=== PATIENT | female | born 1970 | race Caucasian/White ===

== ENCOUNTER 2023-02-19 10:10 | Day surgery (SDC) | payer BC, SELFPAY ==
--- NOTE | 2023-02-19 10:22 | SUR.PREOP ---
02/16/23 Instructed pt on procedure, date, time, and prep.
--- NOTE | 2023-02-19 10:33 | US_ITS ---
[address] [address] Patient Name: RODRIGUE URBINA MRN: [id number] date: 1970 Sex: F Assigned Patient Location: US Current Patient Location: US Accession/Order Number: [id number] Exam Date: 02/19/2023 11:20 Report Date: 02/19/2023 13:36 At the request of: LUIS RODRIGUEZ Procedure: US biopsy thyroid EXAMINATION: US biopsy thyroid HISTORY: Thyroid Nodule COMPARISON: Ultrasound soft tissue head with neck 02/02/2023 TECHNIQUE: After obtaining informed consent, ultrasound-guided fine needle aspiration was performed in the usual sterile manner. FINDINGS: IMAGING: Ultrasound. BIOPSY NEEDLE: 25-gauge; 3 separate passes LOCATION: Right lobe thick-walled heterogeneous, complex cystic 1.9 x 1.3 x 1.3 cm lesion. SPECIMEN TYPE: Cellular tissue. LOCAL ANESTHETIC: Buffered Xylocaine. COMPLICATIONS: None. LABORATORY: Prepared slide smears and washings for cell block evaluation. OTHER: Negative. PATHOLOGY: Pending. An addendum will be added when results are available. US/US biopsy thyroid IMPRESSION: 1. Uneventful ultrasound guided fine needle aspiration (FNA). 2. Pathology results are pending. Electronically authenticated by: MORELIA SHAW Date: 02/19/2023 13:36
[2023-02-19 10:40] VITALS: BP 150/85; PULSE 73; O2SAT 98
[2023-02-19] MEDS: LIDOCAINE HCL 10 ML, SODIUM BICARBONATE 1 MEQ INJ (11:30)
--- NOTE | 2023-02-19 14:35 | SUR.PREOP ---
02/16/23 Pt instructed on procedure, date, time, and prep.
== END 2023-02-19 11:50 | disposition home or self-care (01) ==
LOC: US 10:16
PROVIDERS: Radiology Diagnostic Radiology; Visit Provider Otolaryngology
DX: E04.1 Nontoxic single thyroid nodule (principal)
CPT/HCPCS: 10005; 88173

== ENCOUNTER 2025-02-12 10:49 | Outpatient (OUT) | payer BC, SELFPAY ==
--- OUTSIDE RECORDS SUMMARY | 2025-02-12 10:52 | XMS_ITS | Clinical Summary ---
Author Organization [facility] Address [address], [address] [place] [address] Care Team Providers Care Market Relationship Manager Name Role Phone Avakesha Viv Trejo APRN - DIET AID Primary Care Provider [phone] Allergies No known active allergies Medications MedicationSigDispense QuantityRefillsLast FilledStart DateEnd DateStatus pantoprazole (PROTONIX) 20 MG tablet Take 1 tablet by mouth dailyActive Multiple Vitamins-Minerals (MULTI FOR HER 50+ PO) as directedActive Cromona-3 Fatty Acids (FISH OIL) 1000 MG CAPS 1 capsuleActive Cholecalciferol (VITAMIN D3) 30 MCG/15ML LIQD Take 125 mg by mouthActive METOPROLOL SUCCINATE PO 4Active ferrous sulfate (IRON 325) 325 (65 Fe) MG tablet Take 1 tablet by mouth daily (with breakfast)Active sertraline (ZOLOFT) 50 MG tablet Indications:Depression, unspecified depression typeTake 1 tablet by mouth daily 90 tablet 5Active Active Problems ProblemNoted DateDiagnosed DateUlcer of esophagus with cqxllcho88/20/2022Hiatal wzfkxo3812/09/2021Family history of colon vonkxc5612/09/2021 Resolved Problems ProblemNoted DateDiagnosed DateResolved DateColon cancer /31/2020 11/19/2019 Encounters DateTypeDepartmentCare RbvpOnsvvdrpjyt86/07/2025 5:42 PM EDT - 12/28/2024 11:59 PM EDTHospital Encounter [facility] Ul[facility]ound [address] [place] [address] Thyroid nodule Discharge Disposition: Home or Self Care12/21/2024Transcribe Orders [facility] Pre Access [address] [place] [address] Saritha Mcrae Jr., MD Thyroid nodule (Primary Dx)from Last 3 Months Immunizations ImmunizationAdministration DatesNext DueTDaP, ADACEL (age 10y-64y), BOOSTRIX (age 10y+), IM, 0.5mL1988 Family History Medical HistoryRelationNameCommentsDiabetesBrotherDiabetesFatherOtherFather macular degenerationCancerMaternal Grandfatherthroat cancerCancerMaternal GrandmothercolonOtherMotheriron deficencyOtherOtherNo family h/o ovarian or breast cancer .No family h/o DVT.RelationNameStatusCommentsBrotherAliveFather AliveMaternal GrandfatherDeceasedMaternal GrandmotherDeceasedMotherAliveOther OtherPaternal GrandfatherDeceasedPaternal GrandmotherDeceased Social History Tobacco UseTypesPacks/DayYears UsedDateSmoking Tobacco: NeverSmokeless Tobacco: Never Tobacco Cessation:Counseling Given: Not Answered Alcohol UseStandard Drinks/WeekCommentsYes0 (1 standard drink = 0.6 oz pure alcohol)[facility] UtilitiesAnswerDate RecordedIn the past 12 months has the [employer], gas, oil, or water [employer] threatened to shut off services in your home?No05/18/2024Overall Financial Resource Strain (CARDIA)AnswerDate Recorded How hard is it for you to pay for the very basics like food, housing, medical care, and heating?Not hard at all05/12/2023HQ-2AnswerDate RecordedPHQ-9 Total Hxvrr746Hunger Vital SignAnswerDate RecordedWithin the past 12 months, you worried that your food would run out before you got the money to buymore. Never true05/18/2024Within the past 12 months, the food you bought just didn't last and you didn't have money to get more.Never true05/18/2024PRAPARE - TransportationAnswerDate RecordedIn the past 12 months, has lack of transportation kept you from medical appointments or from getting medications?No 05/18/2024In the past 12 months, has lack of transportation kept you from meetings, work, or from getting things needed for daily living?No05/18/2024 Housing Stability Vital SignAnswerDate RecordedUnable to Pay for Housing in the Last YearNot on file05/12/2023Number of Places Lived in the Last YearNot on file 05/12/2023In the last 12 months, was there a time when you did not have a steady place to sleep or slept in [place] (including now)?No05/12/2023Housing Stability Vital SignAnswerDate RecordedIn the last 12 months, was there a time when you were not able to pay the mortgage or rent on time?No05/18/2024In the past 12 months, how many times have you moved where you were living? At any time in the past 12 months, were you homeless or living in a chcf (including now)?No05/18/2024Food InsecurityAnswerDate RecordedWithin the past 12 months, you worried that your food would run out before you got the money to buy more.Within the past 12 months, the food you bought just didn't last and you didn't have money to get more.CommentsNoSex and Gender InformationValueDate RecordedSex Assigned at AodrtTjgaor86/23/2025 10:41 AM ESTLegal QdyGcycxz88/10/2013 1:18 PM ESTGender IdentityNot on fileSexual OrientationNot on file Last Filed Vital Signs Vital SignReadingTime TakenCommentsBlood Mtekbbkx338/8205/18/2024 3:16 PM EST Lfdpe2990/20/2022 10:15 AM YNTAqbdegyhxge88.3 ??C (97.4 ??F)12/09/2021 9:52 AM EDTRespiratory Khmn121512/09/2021 10:15 AM EDTOxygen Mkzyfkvkvg41%12/09/2021 10:15 AM EDTInhaled Oxygen Concentration--Baugys086.9 kg (229 lb)05/18/2024 3:16 PM DILUuzbkr604.7 cm (5' 8 )05/18/2024 3:16 PM ESTBody Mass Index34.8205/18/2024 3:16 PM EST Plan of Treatment DateTypeDepartmentCare Team (Latest Contact Info)Nuqxiowdvux81/04/2026 3:15 PM ESTOffice Visit [facility] Part of [address] [place], [place] [id number] Sis Jacome, SUPERVISOR AIRPLANE FLIGHT ATTENDANT - CN[address] [place] [address] Return in about 1 year (around 05/18/2025) for yearly.Health MaintenanceDue Date Last DoneCommentsHepatitis C ogdvxw5406/08/1987Hepatitis B vaccine (1 of 3 - 19+ 3-dose series)1988HPV (without or with Pap)06/08/1999FIT/FOBT: Average risk2014Fecal-DNA (Cologuard): Average risk2014Sigmoidoscopy/CT hqsqohrzvhmk51/19/2015Pneumococcal 50+ years Vaccine (1 of 1 - PCV)06/08/2019A1C test (Diabetic or Prediabetic)LipidsFlu vaccine (#1)/, 01/12/2023, 01/12/2022, Additional history existsCOVID-19 Vaccine (2024- season)504/, 06/18/2020 Cervical cancer aviyie2105/07/2025Pap smear/, 04/18/2019, 01/18/2017Depression Lniteshuuy33/27/403321/, 05/18/2024reast cancer sdfyol21/, 05/05/2023, 07/31/2021, Additional history exists Jsypnmkfrpq02/20/58336412/09/2021, 2Colorectal Cancer Hdlwre7512/09/2026 DTaP/Tdap/Td vaccine (3 - Td or Tdap), 1988HIV screen Xdjydmuvl31/30/2012Shingles jhuwpluFilqfldjd05/20/2021, 09/02/2020epression SiyfdbMegxpwkevydl61/27/2025, 05/18/2024Hepatitis A vaccineAged OutNo longer eligible based on patient's age to complete this topicHib vaccineAged OutNo longer eligible based on patient's age to complete this topicMeningococcal (ACWY) vaccineAged OutNo longer eligible based on patient's age to complete this topicMeningococcal B vaccineAged OutNo longer eligible based on patient's age to complete this topicPolio vaccineAged OutNo longer eligible based on patient's age to complete this topic Procedures Procedure NamePriorityDate/TimeAssociated DiagnosisCommentsUS THYROIDRoutine 12/26/2024 6:08 PM EDT Thyroid nodule JOAO WYATT DIGITAL SCREEN TGTQEVMXMLttqtcv20/27/2025 4:53 PM EST Screening mammogram, encounter for [employer] XHPZVUDXGhqwlwq73/16/2023 8:25 AM EST COLONOSCOPY CZJFMRWTUDfvnqer68/20/2022 7:48 AM EDT HEMOGLOBIN H7BGjuylmf33/19/2019 9:08 AM EDT LIPID JBRWCVmjhjul43/19/2019 9:07 AM EDT from Last 3 Months or Most Recently Relevant to Health Maintenance Results * US THYROID (12/26/2024 6:08 PM EDT)Anatomical RegionLateralityModalityHead UltrasoundSpecimen (Source)Anatomical Location / LateralityCollection Method / VolumeCollection TimeReceived Time12/27/2024 6:34 AM EDT Impressions 12/27/2024 6:35 AM EDT 1. Right thyroid nodule measuring 1.7 x 1.4 x 1.7 cm, solid-appearing, isoechoic, wider than tall, smooth margins, no calcifications; TI-RADS 3. 2. Ultrasound follow-up recommended at 1, 3, and 5 years. Narrative 12/27/2024 6:35 AM EDT EXAM: US THYROID 12/26/2024 06:08:36 PM TECHNIQUE: Real-time ultrasound scan of the thyroid gland and soft tissues of the neck with image documentation. COMPARISON: None available. CLINICAL HISTORY: Thyroid nodule. ORDERING SYSTEM PROVIDED HISTORY: Thyroid nodule. Thyroid nodule. ORDERING SYSTEM PROVIDED HISTORY: Thyroid nodule FINDINGS: Right thyroid lobe: 4.0 x 1.9 x 2.2 cm Left thyroid lobe: 4.3 x 1.4 x 1.2 cm Isthmus: 4 mm Echotexture: Normal Echotexture. Vascularity: Normal Vascularity. Thyroid Nodules: Right thyroid nodule measures 1.7 x 1.4 x 1.7 cm, solid-appearing, isoechoic, wider than tall, smooth margins, no calcifications, TIRADS 3 lesion, ultrasound follow-up recommended at 1, 3, and 5 years Soft tissues: No visualized lymphadenopathy Procedure Note Chris Bowman MD - 12/27/2024 EXAM: US THYROID 12/26/2024 06:08:36 PM TECHNIQUE: Real-time ultrasound scan of the thyroid gland and soft tissues of theneck with image documentation. COMPARISON: None available. CLINICAL HISTORY: Thyroid nodule. ORDERING SYSTEM PROVIDED HISTORY: Thyroid nodule. Thyroidnodule. ORDERING SYSTEM PROVIDED HISTORY: Thyroid nodule FINDINGS: Right thyroid lobe: 4.0 x 1.9 x 2.2 cm Left thyroid lobe: 4.3 x 1.4 x 1.2 cm Isthmus: 4 mm Echotexture: Normal Echotexture. Vascularity: Normal Vascularity. Thyroid Nodules: Right thyroid nodule measures 1.7 x 1.4 x 1.7 cm, solid-appearing,isoechoic, wider than tall, smooth margins, no calcifications, TIRADS 3lesion, ultrasound follow-up recommended at 1, 3, and 5 years Soft tissues: No visualized lymphadenopathy IMPRESSION: 1. Right thyroid nodule measuring 1.7 x 1.4 x 1.7 cm, solid-appearing,isoechoic, wider than tall, smooth margins, no calcifications; TI-RADS3. 2. Ultrasound follow-up recommended at 1, 3, and 5 years. Authorizing ProviderResult TypeResult StatusDIOGENES Bean Jr. US ORDERABLESFinal Result * [facility] DIGITAL SCREEN BILATERAL (05/18/2024 4:53 PM EST)Anatomical Region LateralityModalityBreastBilateralMammographySpecimen (Source)Anatomical Location / LateralityCollection Method / VolumeCollection TimeReceived Time 05/19/2024 8:14 AM EST Impressions 05/19/2024 8:15 AM EST No mammographic evidence of malignancy BIRADS: BIRADS - CATEGORY 1 Negative. ??Normal interval follow-up is recommended in 12 months. OVERALL ASSESSMENT - NEGATIVE A letter of notification will be sent to the patient regarding the results. The [employer] recommends annual mammograms for women 40 years and older. Performing Facility: [place] [address] Narrative 05/19/2024 8:15 AM EST EXAMINATION: SCREENING DIGITAL BILATERAL MAMMOGRAM WITH TOMOSYNTHESIS, 05/18/2024 TECHNIQUE: Screening mammography was performed with tomosynthesis including MLO and CC views of the bilateral breasts. Computer aided detection was used for the interpretation of this exam. COMPARISON: May 05, 2023 HISTORY: Screening. FINDINGS: BREAST COMPOSITION: The breasts are heterogeneously dense, which may obscure small masses. There is no dominant mass, architectural distortion or concerning grouping of microcalcification in either breast. Authorizing ProviderResult TypeResult StatusSusan Connie Jacome SUPERVISOR AIRPLANE FLIGHT ATTENDANT - CNMI MAMMOGRAPHY ORDERABLESFinal Result * [employer] Cytology (05/07/2022 8:25 AM EST)ComponentValueRef RangeTest Method Analysis TimePerformed AtPathologist SignatureCytology ReportINTERPRETATION Cervical material, (ThinPrep vial, Imaging-assisted review): Specimen Adequacy: ? Satisfactory for evaluation. ? - Endocervical/transformation zone component present. Descriptive Diagnosis: ? Negative for intraepithelial lesion or malignancy. ?? Brusher Hand: ?? EY BILL4 ARSH Tam(ASCP) Electronically Signed Out ss4/05/20/2022 Source: A: Cervical material, (ThinPrep vial, Imaging-assisted review) Clinical History Z12.4 Encounter for screening for malignant neoplasm of cervix High Risk HPV DNA testing is requested if the diagnosis is ASC-US LMP: ??04/22/2022 GYNECOLOGIC CYTOLOGY REPORT Patient Name: RODRIGUE MAC [facility] Rec: [id number] Path Number: [id number] [facility] ??LABORATORIES CONSULTING PATHOLOGISTS [facility] ANATOMIC PATHOLOGY [address] [place] [address]. ??[place], [place] [address] [facility] LABORATORIESSpecimen (Source)Anatomical Location / LateralityCollection Method / VolumeCollection TimeReceived TimeCERVICAL WGQSGLKE49/16/2023 8:25 AM EST05/08/2022 8:25 AM EST Narrative Authorizing ProviderResult TypeResult StatusSusajeannette Jacome SUPERVISOR AIRPLANE FLIGHT ATTENDANT - CNM PATHOLOGY/CYTOLOGY ORDERABLESFinal ResultPerforming OrganizationAddress City/State/ZIP CodePhone Number [facility] [address] [place] [address], [facility] [phone] [phone] * Colonoscopy (12/09/2021 7:48 AM EDT)Specimen (Source)Anatomical Location / LateralityCollection Method / VolumeCollection TimeReceived Time Narrative Epic, User - 12/09/2021 7:48 AM EDT No dictation Authorizing ProviderResult TypeResult StatusAnnamaria Mixon MDENDOSCOPY ORDERABLESFinal Result * Hemoglobin A1C (01/07/2019 9:08 AM EDT)ComponentValueRef RangeTest Method Analysis TimePerformed AtPathologist SignatureHemoglobin A1C5.94.8 - 5.9 % 01/07/2019 9:08 AM [facility] LABEstimated Avg Eazbfaj254 mg/dL01/07/2019 9:08 AM [facility] LABComment: The ADA and AACC recommend providing the estimated average glucose result to permit better patient understanding of their HBA1c result. Specimen (Source)Anatomical Location / LateralityCollection Method / Volume Collection TimeReceived Time01/07/2019 9:08 AM EDT1 9:09 AM EDT Narrative Authorizing ProviderResult TypeResult StatusViv Ayala SUPERVISOR AIRPLANE FLIGHT ATTENDANT - NPCHEMISTRY ORDERABLESFinal ResultPerforming OrganizationAddressCity/State/ZIP CodePhone Number [facility] [address] [phone] * Lipid Panel (01/07/2019 9:07 AM EDT)ComponentValueRef RangeTest MethodAnalysis TimePerformed AtPathologist HuwvadwvrVgevlaoyfut040<200 mg/dL01/07/2019 9:07 AM [facility] LABComment: Cholesterol Guidelines: <200 Desirable 200-240 ??Borderline >240 Undesirable HDL47>40 mg/dL01/07/2019 9:07 AM [facility] LABComment: HDL Guidelines: <40 Undesirable 40-59 ?Borderline >59 Desirable LDL Kssnciwzmqa3865 - 130 mg/dL01/07/2019 9:07 AM [facility] LABComment: LDL Guidelines: <100 Desirable 100-129 ?? Near to/above Desirable 130-159 ?? Borderline >159 Undesirable Direct (measured) LDL and calculated LDL are not interchangeable tests. Chol/HDL Ratio4.1< 9:07 AM [facility] Comment:Lndskwohfauzr18<150 mg/dL01/07/2019 9:07 AM [facility] LABComment: Triglyceride Guidelines: <150 Desirable 150-199 ??Borderline 200-499 ??High >499 Very high Based on AHA Guidelines for fasting triglyceride, December 2011. VLDLNOT REPORTED1 - 30 mg/dL01/07/2019 9:07 AM [facility] LABSpecimen (Source)Anatomical Location / LateralityCollection Method / Volume Collection TimeReceived Time01/07/2019 9:07 AM EDT1 9:08 AM EDT Narrative Authorizing ProviderResult TypeResult StatusGerri Neil Ayala SUPERVISOR AIRPLANE FLIGHT ATTENDANT - NPCHEMISTRY ORDERABLESFinal ResultPerforming OrganizationAddressCity/State/ZIP CodePhone Number [facility] [address] [place] [address], [facility] [phone] from Last 3 Months or Most Recently Relevant to Health Maintenance Insurance Care Teams Team MemberRelationshipSpecialtyStart DateEnd Date Viv Ayala, SUPERVISOR AIRPLANE FLIGHT ATTENDANT - DIET AID [address] [place] [address] [facility] - Uggkflk55/19/19
--- OUTSIDE RECORDS SUMMARY | 2025-02-12 10:52 | XMS_ITS | Clinical Summary ---
Author Organization [facility] Address [address] [place] [address] Care Team Providers Care Wrapper Sheeter Name Role Phone Marquise Joiner Primary Care Provider [phone] Allergies No known active allergies Medications MedicationSigDispense QuantityRefillsLast FilledStart DateEnd DateStatus sertraline (Zoloft) 50 MG tablet Take 50 mg by mouth DailyActive MULTIPLE VITAMINS PO Active omega-3 (Fish Oil) 1000 MG capsule Take 1,000 mg by mouth DailyActive cholecalciferol (Vitamin D-3) 25 MCG (1000 UT) capsule Indications:Vitamin D DeficiencyTake 1,000 Units by mouth DailyActive ferrous sulfate 325 (65 Fe) MG tablet Take 325 mg by mouth in the morning. Take with meals.Active pantoprazole (ProtoNix) 40 MG EC tablet Indications:Gastroesophageal reflux disease, unspecified whether esophagitis presentTAKE 1 TABLET BY MOUTH EVERY MORNING. TAKE BEFORE MEALS. DO NOT CRUSH, CHEW OR SPLIT 90 tablet 5Active celecoxib (CeleBREX) 200 MG capsule Indications:Myalgia, other siteTake 1 capsule (200 mg) by mouth in the morning and 1 capsule (200 mg) before bedtime. 60 capsule 5Active metoprolol succinate XL (Toprol-XL) 25 MG 24 hr tablet Indications:PalpitationsTake 1 tablet (25 mg) by mouth Daily Do not crush or chew. 90 tablet Discontinued(Therapy completed) Active Problems ProblemNoted DateDiagnosed Date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11/30/2023Thyroiditis, ygdvznorfxo32/10/2024 Thyroid aoiywr5602/15/20238928Exmtckvotqjftuw34/27/2023Family history of colon cancer 12/09/2021Hiatal begull3912/09/2021 Resolved Problems ProblemNoted DateDiagnosed DateResolved DateUlcer of esophagus with bleeding Encounters DateTypeDepartmentCare EiouFzmzejctlet82/05/2025 2:30 PM ESTOffice Visit [facility] [address] [place] [phone] Kevin Stovall MD Thyroiditis (Primary Dx); Thyroid ejybds5701/24/2025 11:20 AM ESTOffice Visit [facility] [address] [place] [phone] Saritha Mcrae MD Thyroid nodule (Primary Dx); Mass of oral psprdi7101/24/2025amboo flowsheet [facility] [address] [place] [phone] Saritha Mcrae MD 01/24/20254279Wezklm15/13/2025 3:00 PM EDTOffice Visit [facility] [address] [place] [phone] Viv Ayala NP Wellness examination (Primary Dx); Hiatal hernia; Thyroid nodule; BMI 35.0-35.9,adult; 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; Thyroiditis, unspecified; Family history of colon cancer; Hyperthyroidism; Immunization due; Myalgia, other site; Xzszvvdkqks89/13/2025bstract [address] [place] [phone] Viv Ayala NP 01/01/2025amboo flowsheet [address] [place] [phone] Viv Ayala NP 01/01/20254011Ebilcp82/10/2025Results Follow-Up [facility] [address] [place], [place] [address] [address] Viv Ayala NP CBC, Comprehensive metabolic panel, Lipid panel, Additional followed-up results: Orders Only [facility] [address] [place] [address] Kevin Stovall MD 12/27/2024Orders Only [facility] [address] [place] [phone] Viv Ayala NP Screening for deficiency anemia (Primary Dx); Diabetes mellitus screening; Screening, lipid; Dysuria; Encounter for vitamin deficiency screening; Wellness kutyduxgdcm17/08/2025linisync Result Encounter [facility] External Department Unsolicited Provider, Generic External Data 11/22/2024Refill [facility] [address] [place] [phone] Karla Maier NP Gastroesophageal reflux disease, unspecified whether esophagitis presentfrom Last 3 Months Immunizations ImmunizationAdministration DatesNext DueInfluenza, injectable, quadrivalent, preservative free01/12/2023,01/12/2022,01/08/2021,01/05/2020Influenza, seasonal, injectable, preservative free01/01/2025,01/12/2024Tdap1,1988 Zoster, Wzynkepnhet68/20/2021,09/02/2020 Family History Medical HistoryRelationNameCommentsSeizuresDaughteryoungestMacular degeneration FatherStomach cancerMaternal GrandfatherCancerMaternal GrandmotherEvelynColon cancerMaternal GrandmotherEvelynIron deficiencyMotherCancerPaternal Grandfather CancerPaternal Grandmothermanic depressionPaternal Grandmotherlithium use MelanomaNeg CpBsvssgeeHauuTphnciMbodtjzfPchfdaas2CmffxiWhxfmTswfpyjb Grandfather DeceasedMaternal GrandmotherEvelynDeceasedMotherAlivePaternal Grandfather DeceasedPaternal GrandmotherDeceasedSon1 Social History Tobacco UseTypesPacks/DayYears UsedDateSmoking Tobacco: NeverSmokeless Tobacco: Never Tobacco Cessation:Counseling Given: No Alcohol UseStandard Drinks/WeekCommentsYes1 (1 standard drink = 0.6 oz pure alcohol)PHQ-2AnswerDate RecordedPatient Health Questionnaire-2 Kcsuu162 Housing Stability Vital SignAnswerDate RecordedIn the last 12 months, was there a time when you were not able to pay the mortgage or rent on time?No01/11/2023In the last 12 months, how many places have you lived?In the last 12 months, was there a time when you did not have a steady place to sleep or slept in ashelter (including now)?No01/11/2023Housing Stability Vital SignAnswerDate RecordedIn the last 12 months, was there a time when you were not able to pay the mortgage or rent on time?No01/11/2023Number of Times Moved in the Last Year Not on file01/11/2023Homeless in the Last YearNot on file01/11/2023Humiliation, Afraid, Rape, and Kick questionnaireAnswerDate RecordedWithin the last year, have you been afraid of your partner or ex-partner?No01/01/2025Within the last year, have you been humiliated or emotionally abused in other ways by your partner or ex-partner?No01/01/2025Within the last year, have you been kicked, hit, slapped, or otherwise physically hurt by your partner or ex-partner?No 01/01/2025Within the last year, have you been raped or forced to have any kind of sexual activity by your partner or ex-partner?No01/01/2025Social Connection and Isolation PanelAnswerDate RecordedFrequency of Communication with Friends and FamilyNot on file01/01/2025How often do you get together with friends or relatives?Three times a week01/01/2025How often do you attend religious or mandaen services?Patient pzrtukdz94/13/2025Do you belong to any clubs or organizations such as religious groups, unions, fraternal or athletic groups, or school groups?No01/01/2025ttends Club or Organization MeetingsNot on file 01/01/2025re you , , , , never , or living with a partner?Efivoyk0501/01/2025UDIT-CAnswerDate RecordedQ1: How often do you have a drink containing alcohol?2-4 times a month01/01/2025Q2: How many drinks containing alcohol do you have on a typical day when you are drinking?1 or Q3: How often do you have six or more drinks on one occasion?Never 01/01/2025Overall Financial Resource Strain (CARDIA)AnswerDate RecordedHow hard is it for you to pay for the very basics like food, housing, medical care, and heating?Not hard at all01/01/2025[facility] [place] [facility] - Occupational Stress QuestionnaireAnswerDate RecordedDo you feel stress - tense, restless, nervous, or anxious, or unable to sleep at night because yourmind is troubled all the time - these days?Only a iqhmtz4901/01/2025Exercise Vital Sign AnswerDate RecordedOn average, how many days per week do you engage in moderate to strenuous exercise (like a brisk walk)?Patient hysfoqas46/13/2025On average, how many minutes do you engage in exercise at this level?Patient declined 01/01/2025Hunger Vital SignAnswerDate RecordedWithin the past 12 months, you worried that your food would run out before you got the money to buymore.Never true01/01/2025Within the past 12 months, the food you bought just didn't last and you didn't have money to get more.Never true01/01/2025PRAPARE - TransportationAnswerDate RecordedIn the past 12 months, has lack of transportation kept you from medical appointments or from getting medications?No 01/01/2025In the past 12 months, has lack of transportation kept you from meetings, work, or from getting things needed for daily living?No01/01/2025 Housing Stability Vital SignAnswerDate RecordedIn the last 12 months, was there a time when you were not able to pay the mortgage or rent on time?No01/01/2025 Number of Times Moved in the Last YearNot on file01/01/2025t any time in the past 12 months, were you homeless or living in a usp (including now)?No 01/01/2025B1300 Health LiteracyAnswerDate RecordedHow often do you need to have someone help you when you read instructions, pamphlets, or other written material from your doctor or pharmacy?Never01/01/2025CommentsNoSex and Gender InformationValueDate RecordedSex Assigned at BirthNot on fileLegal Sex Lzugjv2706/03/2022 8:24 PM EDTGender IdentityNot on fileSexual OrientationNot on file Last Filed Vital Signs Vital SignReadingTime TakenCommentsBlood Ceppmwyt249/8011 11:17 AM EST Qfksa4687 2:29 PM NJLJmlqrbmeyaf58.6 ??C (97.9 ??F)01/01/2025 3:17 PM EDTRespiratory Kmru056303/26/2024 2:29 PM ESTOxygen Tvjoaslrtl15%01/24/2025 2:29 PM ESTInhaled Oxygen Concentration--Pyfpig097 kg (233 lb)01/24/2025 2:29 PM EST Uvpklq101 cm (5' 8.5 )01/24/2025 2:29 PM ESTBody Mass Index34.9111 2:29 PM EST Plan of Treatment DateTypeDepartmentCare Team (Latest Contact Info)Yandrqcxwbn74/27/2026 1:00 PM EDTOffice Visit [facility] [address] [facility] [address] [place] [phone] Saritha Mcrae MD [address] [facility] [address] [place] [address] 12/24/2025 3:30 PM EDTOffice Visit [facility] [address] [place] [address] Viv Ayala NP [address] [place] [address] 01/23/2026 2:00 PM ESTOffice Visit [facility] [address] [place] [address] Kevin Stovall MD [address] [place] [address] Health MaintenanceDue DateLast DoneCommentsCT Vzmfusfonrzq41/19/1970FIT-DNA 1969FIT1969FOBT1969 8129Cymkhynoqnqdx08/19/1970HPV/Tpnxbm5906/08/1999 COVID-19 Vaccine ( season)504/, 06/18/2020ervical Cancer Ihyvyuorp61/16/2026Pap Smear602/, 05/07/2022, 04/18/2019 Drijsmjva86/27/904491/, 05/18/2024, 05/05/2023, Additional history exists Sbgndiiibpn49/20/203209/, 12/09/2021, 12/09/2021, Additional history existsColorectal Cancer Mkppfjlvy73/20/2032Influenza IgykdcxLebsoznrb13/13/2025, 01/12/2024, 01/12/2023, Additional history existsPneumococcal Vaccine: Pediatrics (0 to 5 Years) and At-Risk Patients (6 to 64 Years)Aged OutNo longer eligible based on patient's age to complete this topic Procedures Procedure NamePriorityDate/TimeAssociated DiagnosisCommentsT4, FREERoutine 12/28/2024 8:08 AM EDTT3, XBGRKbpnfpz28/09/2025 8:08 AM NOZGCIOfndwzb27/09/2025 8:08 AM EDTHEMOGLOBIN Q4PPkvudrt82/08/2025 7:09 AM EDT Diabetes mellitus screening VITAMIN D 25 HYDROXY VBSEWRphtcfz30/08/2025 7:09 AM EDT Encounter for vitamin deficiency screening URINALYSIS, COMPLETE W/REFLEX TO JMXDFIOHfeebqn72/08/2025 7:09 AM EDT Dysuria Wellness examination LIPID ZKTXQNilcawe08/08/2025 7:09 AM EDT Screening, lipid Wellness examination COMPREHENSIVE METABOLIC CWKUDQfxxdjf09/08/2025 7:09 AM EDT Diabetes mellitus screening Wellness examination WENVtocpmx91/08/2025 7:09 AM EDT Screening for deficiency anemia Wellness examination CULTURE, URINE, AHIDOOXFftvzrh56/08/2025 7:09 AM EDT REFLEXIVE URINE XKYXRKVWexifwz79/08/2025 7:09 AM EDT US XMUIXOE1012/27/2024 6:35 AM EDT ELQUEVFDQSOSwgkwqj55/20/2022 12:00 PM EDT BI MAMMOGRAM SCREENING YHGNHMQJTPseoboi81/12/2022 12:00 PM EDT from Last 3 Months or Most Recently Relevant to Health Maintenance Results * T3, free (12/28/2024 8:08 AM EDT)Specimen (Source)Anatomical Location / LateralityCollection Method / VolumeCollection TimeReceived TimeBloodVenous blood specimen / Unknown Narrative Authorizing ProviderResult TypeResult Statusluis m Stovall MDW[facility] BLOOD ORDERABLESFinal Result * TSH (12/28/2024 8:08 AM EDT)Specimen (Source)Anatomical Location / Laterality Collection Method / VolumeCollection TimeReceived TimeBloodVenous blood specimen / Unknown Narrative Authorizing ProviderResult TypeResult Statusluis m Stovall MDWIL[facility] BLOOD ORDERABLESFinal Result * T4, free (12/28/2024 8:08 AM EDT)Specimen (Source)Anatomical Location / LateralityCollection Method / VolumeCollection TimeReceived TimeBloodVenous blood specimen / Unknown Narrative Authorizing ProviderResult TypeResult StatusKevin Stovall MDLAB BLOOD ORDERABLESFinal Result * REFLEXIVE URINE CULTURE (12/27/2024 7:09 AM EDT)ComponentValueRef RangeTest MethodAnalysis TimePerformed AtPathologist SignatureREFLEXIVE URINE CULTURE QUESTComment:CULTURE INDICATED - RESULTS TO FOLLOWSpecimen (Source)Anatomical Location / LateralityCollection Method / VolumeCollection TimeReceived Time 12/27/2024 7:09 AM EDT1 7:10 AM EDT Narrative [facility] - 12/29/2024 9:01 AM EDT FASTING:YES FASTING: YES Resulting Agency Comment Performing Organization Information ?Site ID: QPT ?Name: [facility] ?Address: [address] [place] [phone] ?Director: Neal Epperson MD Authorizing ProviderResult TypeResult StatusViv Ayala LAB MICROBIOLOGY - GENERAL ORDERABLESFinal ResultPerforming OrganizationAddressCity/State/ZIP Code Phone Number [facility] * (ABNORMAL) URINALYSIS, COMPLETE W/REFLEX TO CULTURE (12/27/2024 7:09 AM EDT) ComponentValueRef RangeTest MethodAnalysis TimePerformed AtPathologist SignatureCOLORYELLOWYELLOWQUESTAPPEARANCECLEARCLEARQUESTSPECIFIC GRAVITY1.021 1.001 - 1.243QJODMLA2.55.0 - 8.0QUESTGLUCOSENEGATIVENEGATIVEQUESTBILIRUBIN NEGATIVENEGATIVEQUESTKETONESNEGATIVENEGATIVEQUESTOCCULT BLOOD2+(A)NEGATIVE QUESTPROTEINTRACE(A)NEGATIVEQUESTNITRITENEGATIVENEGATIVEQUESTLEUKOCYTE ESTERASETRACE(A)NEGATIVEQUESTWBC0-5< OR = 5 /HPFQUESTRBCNONE SEEN< OR = 2 /HPF QUESTSQUAMOUS EPITHELIAL PGCON03-07(A)< OR = 5 /HPFQUESTBACTERIAFEW(A)NONE SEEN /HPFQUESTHYALINE CASTNONE SEENNONE SEEN /LPFQUESTNOTEQUESTComment: This urine was analyzed for the presence of WBC, RBC, bacteria, casts, and other formed elements. Only those elements seen were reported. Specimen (Source)Anatomical Location / LateralityCollection Method / Volume Collection TimeReceived Time12/27/2024 7:09 AM EDT1 7:10 AM EDT Narrative [facility] - 12/29/2024 9:01 AM EDT FASTING:YES FASTING: YES Resulting Agency Comment Performing Organization Information ?Site ID: QPT ?Name: [facility] ?Address: [address] [place] [address], [address] [place] [phone] ?Director: Neal Epperson MD Authorizing ProviderResult TypeResult StatusGerri Neil Ayala NPLAB BODY FLUIDS AND STOOLS ORDERABLESFinal ResultPerforming OrganizationAddressCity/State/ZIP Code Phone Number [facility] * Vitamin D 25 hydroxy Total (12/27/2024 7:09 AM EDT)ComponentValueRef RangeTest MethodAnalysis TimePerformed AtPathologist SignatureVITAMIN D,25-OH,TOTAL,IA69 30 - 100 ng/mLQUESTComment: Vitamin D Status ? 25-OH Vitamin D: Deficiency: <20 ng/mL Insufficiency: ? 20 - 29 ng/mL Optimal: > or = 30 ng/mL For 25-OH Vitamin D testing on patients on D2-supplementation and patients for whom quantitation of D2 and D3 fractions is required, the QuestAssureD(TM) 25-OH VIT D, (D2,D3), LC/MS/MS is recommended: order code 66439 (patients >2yrs). See Note 1 Note 1 For additional information, please refer to http://education.[employer]Pulmonx/faq/CIJ366 (This link is being provided for informational/ educational purposes only.) Specimen (Source)Anatomical Location / LateralityCollection Method / Volume Collection TimeReceived TimeBloodVenous blood specimen / Kmymvxy4812/27/2024 7:09 AM EDT1 7:10 AM EDT Narrative [facility] - 12/29/2024 9:01 AM EDT FASTING:YES FASTING: YES Resulting Agency Comment Performing Organization Information ?Site ID: QPT ?Name: [facility] ?Address: [facility] , [address] [place] [phone] ?Director: Neal Epperson MD Authorizing ProviderResult TypeResult StatusGerri Neil Ayala NPLAB BLOOD ORDERABLES Final ResultPerforming OrganizationAddressCity/State/[facility] CodePhone Number [facility] * CBC (12/27/2024 7:09 AM EDT)ComponentValueRef RangeTest MethodAnalysis Time Performed AtPathologist SignatureWHITE BLOOD CELL COUNT5.03.8 - 10.8 Thousand/uLQUESTRED BLOOD CELL COUNT4.673.80 - 5.10 Million/uLQUESTHEMOGLOBIN 13.911.7 - 15.5 g/mNOKGNLIFOEZXJZHU15.135.0 - 45.0 %CIMTZTGU42.380.0 - 100.0 oILBXHICAN06.827.0 - 33.0 lsCFUGRDYUA66.332.0 - 36.0 g/dLQUESTComment: For adults, a slight decrease in the calculated MCHC value (in the range of 30 to 32 g/dL) is most likely not clinically significant; however, it should be interpreted with caution in correlation with other red cell parameters and the patient's clinical condition. RDW13.511.0 - 15.0 %QUESTPLATELET JDJLK361383 - 400 Thousand/uLQUESTMPV9.87.5 - 12.5 fLQUESTSpecimen (Source)Anatomical Location / LateralityCollection Method / VolumeCollection TimeReceived TimeBloodVenous blood specimen / Sewwwdd4712/27/2024 7:09 AM EDT1 7:10 AM EDT Narrative [facility] - 12/29/2024 9:01 AM EDT FASTING:YES FASTING: YES Resulting Agency Comment Performing Organization Information ?Site ID: QPT ?Name: [facility] ?Address: [facility] , [address] [place] [phone] ?Director: Neal Epperson MD Authorizing ProviderResult TypeResult StatusGerri L Rine NPLAB BLOOD ORDERABLES Final ResultPerforming OrganizationAddressCity/State/ZIP CodePhone Number [facility] * Urine culture (12/27/2024 7:09 AM EDT)ComponentValueRef RangeTest Method Analysis TimePerformed AtPathologist SignatureMICRO [id number] SPECIMEN QUALITYAdequateQUESTSOURCE: (QUEST)URINEQUESTSTATUSFINALQUESTRESULT SEE NOTEQUESTComment: No Growth Specimen (Source)Anatomical Location / LateralityCollection Method / Volume Collection TimeReceived Time12/27/2024 7:09 AM EDT1 7:10 AM EDT Narrative [facility] - 12/29/2024 9:01 AM EDT FASTING:YES FASTING: YES Resulting Agency Comment Performing Organization Information ?Site ID: QPT ?Name: [facility] ?Address: [address] [place] [phone] ?Director: Neal Epperson MD Authorizing ProviderResult TypeResult StatusViv NUNEZ MICROBIOLOGY - GENERAL ORDERABLESFinal ResultPerforming OrganizationAddressCity/State/ZIP Code Phone Number [facility] * (ABNORMAL) Hemoglobin A1c (12/27/2024 7:09 AM EDT)ComponentValueRef RangeTest MethodAnalysis TimePerformed AtPathologist SignatureHemoglobin A1C5.9(H)<5.7 % QUESTComment: For someone without known diabetes, a hemoglobin A1c value between 5.7% and 6.4% is consistent with prediabetes and should be confirmed with a follow-up test. For someone with known diabetes, a value <7% indicates that their diabetes is well controlled. A1c targets should be individualized based on duration of diabetes, age, comorbid conditions, and other considerations. This assay result is consistent with an increased risk of diabetes. Currently, no consensus exists regarding use of hemoglobin A1c for diagnosis of diabetes for children. Specimen (Source)Anatomical Location / LateralityCollection Method / Volume Collection TimeReceived TimeBloodVenous blood specimen / Wbzdrbm7012/27/2024 7:09 AM EDT1 7:10 AM EDT Narrative [facility] - 12/29/2024 9:01 AM EDT FASTING:YES FASTING: YES Resulting Agency Comment Performing Organization Information ?Site ID: QPT ?Name: [facility] ?Address: [address] [place] [address], [address] [place] [phone] ?Director: Neal Epperson MD Authorizing ProviderResult TypeResult StatusGerjane Ayala NPARIA BLOOD ORDERABLES Final ResultPerforming OrganizationAddressCity/State/ZIP CodePhone Number [facility] * (ABNORMAL) Lipid panel (12/27/2024 7:09 AM EDT)ComponentValueRef RangeTest MethodAnalysis TimePerformed AtPathologist SignatureCHOLESTEROL, OVEHK170(H) <200 mg/dLQUESTHDL KRBSQPMOHQB81> OR = 50 mg/bSMBOLEUGXJZLAXKDIFQ20<150 mg/dL QUESTLDL BRTSZPXKERA696(H)mg/dL (calc)QUESTComment: Reference range: <100 Desirable range <100 mg/dL for primary prevention; <70 mg/dL for patients with CHD or diabetic patients with > or = 2 CHD risk factors. LDL-C is now calculated using the Jennifer calculation, which is a validated novel method providing better accuracy than the Friedewald equation in the estimation of LDL-C. Mehul KHAN et al. LIV. 2013;310(19): 1533-2700 (http://education.[employer]Pulmonx/faq/SOF119) CHOL/HDLC RATIO3.5<5.0 (calc)QUESTNON HDL NUGQRSFJMJY850(H)<130 mg/dL (calc) QUESTComment: For patients with diabetes plus 1 major ASCVD risk factor, treating to a non-HDL-C goal of <100 mg/dL (LDL-C of <70 mg/dL) is considered a therapeutic option. Specimen (Source)Anatomical Location / LateralityCollection Method / Volume Collection TimeReceived TimeBloodVenous blood specimen / Bujkslx4512/27/2024 7:09 AM EDT1 7:10 AM EDT Narrative [facility] - 12/29/2024 9:01 AM EDT FASTING:YES FASTING: YES Resulting Agency Comment Performing Organization Information ?Site ID: QPT ?Name: [facility] ?Address: [address] [place] [address], [address] [place] [phone] ?Director: Neal Epperson MD Authorizing ProviderResult TypeResult StatusGerjane Ayala NPLAB BLOOD ORDERABLES Final ResultPerforming OrganizationAddressCity/State/ZIP CodePhone Number [facility] * (ABNORMAL) Comprehensive metabolic panel (12/27/2024 7:09 AM EDT)Component ValueRef RangeTest MethodAnalysis TimePerformed AtPathologist SignatureGlucose 111(H)65 - 99 mg/dLQUESTComment: ? Fasting reference interval For someone without known diabetes, a glucose value between 100 and 125 mg/dL is consistent with prediabetes and should be confirmed with a follow-up test. SRG919 - 25 mg/dLQUESTCreatinine0.830.50 - 1.03 mg/xEFAGTVWFRZ00> OR = 60 mL/min/1.86j2IOBTFUDA/CREATININE RATIOSEE NOTE: (calc)QUESTComment: ?? Not Reported: BUN and Creatinine are within ?? reference range. ? Abyjvz201634 - 146 mmol/LQUESTPotassium, Bld4.33.5 - 5.3 mmol/NJWHIHAidwqxzq625 98 - 110 mmol/LQUESTCarbon Dhistaf3680 - 32 mmol/LQUESTCalcium8.98.6 - 10.4 mg/dLQUESTPROTEIN, TOTAL6.56.1 - 8.1 g/dLQUESTALBUMIN4.23.6 - 5.1 g/dLQUEST GLOBULIN2.31.9 - 3.7 g/dL (calc)QUESTALBUMIN/GLOBULIN RATIO1.81.0 - 2.5 (calc) QUESTBILIRUBIN, TOTAL0.60.2 - 1.2 mg/dLQUESTALKALINE ITZFHXLZQRS8314 - 153 U/L GQTOJXJW7264 - 35 U/EEXHKDHDC245 - 29 U/LQUESTSpecimen (Source)Anatomical Location / LateralityCollection Method / VolumeCollection TimeReceived TimeBlood Venous blood specimen / Qvwtndk0212/27/2024 7:09 AM EDT1 7:10 AM EDT Narrative [facility] - 12/29/2024 9:01 AM EDT FASTING:YES FASTING: YES Resulting Agency Comment Performing Organization Information ?Site ID: QPT ?Name: [facility] ?Address: [address] [place] [address], [address] [place] [phone] ?Director: Neal Epperson MD Authorizing ProviderResult TypeResult StatusGerri Neil Ayala RUST BLOOD ORDERABLES Final ResultPerforming OrganizationAddressCity/State/ZIP CodePhone Number [facility] * US THYROID (12/27/2024 6:35 AM EDT)Anatomical RegionLateralityModalityOther Specimen (Source)Anatomical Location / LateralityCollection Method / Volume Collection TimeReceived Time12/27/2024 6:35 AM EDT Narrative 12/27/2024 6:37 AM EDT EXAM: US THYROID 12/26/2024 06:08:36 [...] recommended at 1, 3, and 5 years. Interpreted by: Chris Bowman MD Signed by: Chris Bowman MD 12/27/24 Final result Procedure Note Radiology, Radiologist, MD - 12/27/2024 EXAM: US THYROID 12/26/2024 [...] recommended at 1, 3, and 5 years. Interpreted by: Chris Bowman MD Signed by: Chris Bowman MD 12/27/24 Final result Authorizing ProviderResult TypeResult StatusGeneric External Data Provider CLINISYNC IMAGINGFinal Result * Colonoscopy (12/09/2021 12:00 PM EDT)Anatomical RegionLateralityModality EndoscopySpecimen (Source)Anatomical Location / LateralityCollection Method / VolumeCollection TimeReceived Time12/09/2021 12:00 PM EDT Narrative 12/09/2021 12:00 PM EDT PERFORMED AT [facility] LOCATION:[id number] Procedure Note CONVERSION, GENERIC - 08/05/2022 PERFORMED AT [facility] LOCATION:[id number] Authorizing ProviderResult TypeResult StatusGerri L Rine NPENDOSCOPY PROCEDURE ORDERABLESFinal Result * Bilateral screening mammogram (07/31/2021 12:00 PM EDT)Anatomical Region LateralityModalityBreastBilateralMammographySpecimen (Source)Anatomical Location / LateralityCollection Method / VolumeCollection TimeReceived Time Narrative 07/31/2021 12:00 PM EDT PERFORMED AT [facility] LOCATION:[id number] Procedure Note CONVERSION, GENERIC - 09/25/2022 PERFORMED AT [facility] LOCATION:[id number] Authorizing ProviderResult TypeResult StatusGerri L Rine NPIMG BI PROCEDURES Final Result from Last 3 Months or Most Recently Relevant to Health Maintenance Insurance Care Teams Team MemberRelationshipSpecialtyStart DateEnd Date Marquise Joiner DO [address] [place] [address] PCP - GeneralFamily Medicine07/28/22
--- OUTSIDE RECORDS SUMMARY | 2025-02-12 11:02 | XMS_ITS | CCD ---
Author Organization [facility] Care Team Providers Care Sewage Plant Operator Name Role Phone Jamie Viv L Primary Care Provider [phone] Kevin Marsh Attending Unavailable Kevin Marsh Admitting Unavailable Rine, Viv L Primary Care Unavailable Rine SALES WAREHOUSE DRIVER - PROFESSOR OF INDUSTRIAL TECHNOLOGY, Viv L Primary Care Provider Marquise Joiner DO Primary Care Provider [phone] Marquise Joiner DO Unavailable Jamie PROFESSOR OF INDUSTRIAL TECHNOLOGY, Viv L Unavailable RINE, VIV L Primary Care Unavailable TIMMIS JR SARITHA H Referring Unavailable RINE, VIV L Primary Care Unavailable SIS JACOME Referring Unavailabl e RINE, VIV L Primary Care Unavailable TIMMIS JR SARITHA H Referring Unavailable RINE, VIV L Primary Care Unavailable MICHAEL HAMPTON SARITHA H Referring Unavailable Marquise Joiner DO Unavailable Jamie PROFESSOR OF INDUSTRIAL TECHNOLOGY, Viv L Unavailable Jamie PROFESSOR OF INDUSTRIAL TECHNOLOGY, Viv L Unavailable CHAYO RODRIGUEZARY H Attending Unavailable KEVIN MARSH Attending Unavailable RINE, VIV L Attending Unavailable SARITHA RODRIGUEZ H Attending Unavailable KEVIN MARSH Attending Unavailable Medications Current Medications MedicationDrug Class(es)DatesSig (Normalized)Sig (Original)celecoxib 200 mg oral capsule (7 sources)Nonsteroidal Anti-inflammatory DrugStart: 94-79-7080drol 1 capsule by mouth in the morningcelecoxib (CeleBREX) 200 MG capsule Indications: Myalgia, other site Take 1 capsule (200 mg) by mouth in the morning and 1 capsule (200 mg) before bedtime. 60 capsule 1 01/01/2025 Activecholecalciferol 0.025 mg oral capsule (20 sources)Vitamin Dtake 1 capsule by mouth once dailycholecalciferol (Vitamin D-3) 25 MCG (1000 UT) capsule Indications: Vitamin D Deficiency Take 1,000Units by mouth Daily ActiveCholecalciferol (VITAMIN D3) 30 MCG/15ML LIQD Take 125 mg by mouth Activetake 1 capsule by mouth once in the morningcholecalciferol (Vitamin D-3) 25 MCG (1000 UT) capsule Indications: Vitamin D Deficiency Take 1,000Units by mouth in the morning. Activechondroitin sulfates 400 mg / glucosamine sulfate 500 mg oral tablet (11 sources)take 1 tablet by mouth three times dailyglucosamine-chondroitin 500- 400 MG tablet Take 1 tablet by mouth 3 times daily Active End: 77-92-1780frtk 1 tablet by mouth in the morning, then take 1 tablet by mouth in the evening, then take 1 tablet by mouth at bedtimeglucosamine- chondroitin 500-400 MG tablet Take 1 tablet by mouth in the morning and 1 tablet in theevening and 1 tablet before bedtime. 01/12/2024 Discontinued (Therapy completed)docosahexaenoic acid 120 mg / eicosapentaenoic acid 180 mg oral capsule (20 sources)take 1 capsule by mouth once dailyomega-3 (Fish Oil) 1000 MG capsule Take 1,000 mg by mouth Daily Activeferrous sulfate 325 mg oral tablet (20 sources)take 1 tablet by mouth at mealtimeferrous sulfate 325 (65 Fe) MG tablet Take 325 mg by mouth in the morning. Take with meals. Activetake 1 tablet by mouth once daily at breakfastferrous sulfate (IRON 325) 325 (65 Fe) MG tablet Take 1 tablet by mouth daily (with breakfast) Activemagnesium sulfate 0.0277 meq/ml / potassium sulfate 0.0374 meq/ml / sodium sulfate 0.257 meq/ml oral solution (1 source)Start: 55-57-3548Mf Sulfate-K Sulfate-Mg Sulf (SUPREP BOWEL PREP KIT) 17.5-3.13-1.6 GM/177ML SOLN solution Take 1 kit by mouth See Admin Instructions 1 each 0 07/08/2021 Active1 ml medroxyPROGESTERone acetate 150 mg/ml injection (1 source)ProgestinmedroxyPROGESTERone (DEPO-PROVERA) 150 MG/ML injection Inject 150 mg into the muscle every 3 months0 ActivemetFORMIN hydrochloride 500 mg oral tablet (1 source)Biguanidetake 1 tablet by mouth once daily at breakfastmetFORMIN (GLUCOPHAGE) 500 MG tablet Take 500 mg by mouth daily (with breakfast) 0 Active 24 hr metoprolol succinate 25 mg extended release oral tablet (20 sources)beta-Adrenergic BlockerStart: 05-29-2024 End: 02-65-5013ustv 1 tablet by mouth once dailymetoprolol succinate XL (Toprol- XL) 25 MG 24 hr tablet Indications: Palpitations Take 1 tablet (25 mg) by mouth Daily Do not crush or chew. 90 tablet 3 05/29/2024 01/24/2025 Discontinued (Therapy completed)Start: 12-10-2023 End: 70-54-4243wlro 1 tablet by mouth once dailymetoprolol succinate XL (Toprol- XL) 25 MG 24 hr tablet Indications: Palpitations Take 1 tablet (25 mg) by mouth Daily Do not crush or chew. 90 tablet 3 12/14/2023 ActiveStart: 03-22-2023 METOPROLOL SUCCINATE PO 03/22/2023 ActiveMULTIPLE VITAMINS PO (20 sources)MULTIPLE VITAMINS PO ActiveMULTIPLE VITAMINS PO as directed Active Multiple Vitamins-Minerals (MULTI FOR HER 50+ PO) (5 sources)Multiple Vitamins-Minerals (MULTI FOR HER 50+ PO) as directed Active Multiple Vitamins-Minerals (MULTI FOR HER 50+ PO) as directed 0 Active pantoprazole 40 mg delayed release oral tablet (20 sources)Proton Pump InhibitorStart: 01-12-2023 End: 22-60-1380ozca 1 tablet by mouth once daily before mealtimepantoprazole (ProtoNix) 40 MG EC tablet Indications: Gastroesophageal reflux disease, unspecified whether esophagitis present TAKE 1 TABLET BY MOUTH EVERY MORNING. TAKE BEFORE MEALS. DO NOT CRUSH, CHEW OR SPLIT 90 tablet 1 11/22/2024 Activetake 1 tablet by mouth once dailypantoprazole (PROTONIX) 20 MG tablet Take 1 tablet by mouth daily Activesertraline 50 mg oral tablet (20 sources)Serotonin Reuptake InhibitorStart: 23-49-5327gvxzytgbnt (ZOLOFT) 100 MG tablet Indications: Depression, unspecified depression type Take 1/2 tablet daily. 45 tablet 3 08/26/2017 ActiveStart: 74-08-5906mgmr 1 tablet by mouth once dailysertraline (ZOLOFT) 50 MG tablet Indications: Depression, unspecified depression type Take 1 tabletby mouth daily 90 tablet 3 05/18/2024 ActiveStart: 40-36-6056touv 1 tablet by mouth once dailysertraline (ZOLOFT) 100 MG tablet Indications: Adjustment disorder with mixed anxiety and depressedmood Take 1 tablet by mouth daily 90 tablet 3 01/25/2018 Active Problems Active Problems Problem ClassificationProblemDateDocumented DateEpisodic/ChronicCardiac dysrhythmias (5 sources)Palpitations; Translations: [Palpitations]09-94-8568FdwslrvlIekpfxar mellitus without complication (2 sources)Prediabetes; Translations: [Prediabetes]60-68-7469Drmxyjcx Genitourinary symptoms and ill-defined conditions (1 source)Dysuria; Translations: [Dysuria]28-06-7151EvbnncmsOvngxmgdrzkbw and screening for infectious disease (4 sources)Immunization due; Translations: [Encounter for immunization] 22-18-2939OhydzkrwLtoce connective tissue disease (2 sources)Muscle pain; Translations: [Myalgia, other site]64-01-7541Qfuipqmw Other nutritional; endocrine; and metabolic disorders (4 sources)Body mass index 30+ - obesity; Translations: [Body mass index (BMI) 33.0-33.9, adult]85-98-2282KcjlshqDxykozo disorders (20 sources)Thyroid nodule; Translations: [Nontoxic single thyroid nodule]Onset: 540402-10-6675DvpmzqtDfdtnxblcayc (1 source)Patient encounter statusUnclassified (1 source)Thyrotoxicosis, unspecified without thyrotoxic crisis or storm; Translations: [Thyrotoxicosis, unspecified without thyrotoxic crisis or storm] Onset: 03-02-2023 Past or Other Problems Problem ClassificationProblemDateDocumented DateEpisodic/ChronicAbdominal hernia (20 sources)Hiatal hernia; Translations: [Diaphragmatic hernia without obstruction or gangrene]Onset: 348445-58-7778GoblwbscTpfubcwwhh disorders (20 sources)Bleeding ulcer of esophagus; Translations: [Ulcer of esophagus with bleeding]Onset: 12-09-2021 Resolved: 524776-33-2013FfkkrfgZzqjz screening for suspected conditions (not mental disorders or infectious disease) (12 sources)Patient encounter status; Translations: [Encounter for screening mammogram for malignant neoplasm of breast]Onset: 10-20-2019 Resolved: 28-36-3712LlbsqnvoLxawbpyj codes; unclassified (20 sources)Family history of cancer of colon; Translations: [Family history of malignant neoplasm of digestiveorgans]Onset: 903761-16-0645Qqtaxahw Results Test NameValueInterpretationReference RangeFacilityUS THYROIDon 17-25-3465KSKX: US THYROID 12/26/2024 06:08:36 PM TECHNIQUE: Real-time [...] Signed by: Chris Bowman MD 12/27/24 Final resultMHPTRadiology, Radiologist, - 12/27/2024 EXAM: US THYROID 12/26/2024 06:08:36 [...] by: Chris Bowman MD 12/27/24 Final result [facility] THYROIDEXAM: US THYROID 12/26/2024 06:08:36 PM TECHNIQUE: Real-time [...] Signed by: Chris Bowman MD 12/27/24 Final resultNormalMerLawrence+Memorial HospitalRadiology Study observation (narrative) CAROLYNE Canseco THYROIDOrdered By: Radiologist Radiology on [id number] swabr Work Phone: US Thyroid glandon . Right thyroid nodule measuring 1.7 x 1.4 x 1.7 cm, solid-appearing, isoechoic, wider than tall, s mooth margins, no calcifications; TI-RADS 3. 2. Ultrasound follow-up recommended at 1, 3, and 5 years. [facility] CONSOLIDATEDEXAM: US THYROID 12/26/2024 06:08:36 PM TECHNIQUE: Real-time [...] 5 years Soft tissues: No visualized lymphadenopathy [facility] Chris Hauser MD - 12/27/2024 EXAM: US THYROID 12/26/2024 [...] recommended at 1, 3, and 5 years. [facility] Thyroid glandOrdered By: Chris Bowman on 12-27-2024 [employer] Work Phone: us Thyroid glandon [phone] Study observation (narrative)[facility] THYROIDon 06-16-2024 EXAMINATION: THYROID ULTRASOUND 06/14/2024 COMPARISON: None. TECHNIQUE: Real-time and color flow sonographic images were obtained using a linear transducer. [id number]. HISTORY: F 54 y/o old. ORDERING SYSTEM PROVIDED HISTORY: Thyroid nodule FINDINGS: Right thyroid lobe: 3.8 x 1.8 x 2.0cm Left thyroid lobe: 3.4 x 1.4 x 0.9cm Isthmus: Choose 1cm Echotexture: Normal Vascularity: Normal Thyroid Nodules: NODULE: 1 Size: 15 x 16 x 18 mm Location: Mid right thyroid 1. Composition: Mixed cystic and solid (1) 2. Echogenicity: Hypoechoic (2) 3. Shape: Pqydo-bqse-ammo (0) 4. Margins: Ill-defined (0) 5. Echogenic foci: Macrocalcifications (1) ACR TI-RADS total points: 4 ACR TI-RADS risk category: TR4 Soft tissues: No visualized lymphadenopathy IMPRESSION: Right thyroid nodule as detailed with potential follow-up as below: NODULE 1: ACR TI-RADS TR4: Recommend: Ultrasound-guided fine needle aspiration. ACR TI-RADS recommendations: TR5 (>= 7 points): FNA if >= 1 cm; follow-up if 0.5-0.9 cm in 1, 2, 3, 4, and 5 years TR4 (4-6 points): FNA if >= 1.5 cm; follow-up if 1.0-1.4 cm in 1, 2, 3, and 5 years TR3 (3 points): FNA if >= 2.5 cm; follow-up if 1.5-2.4 cm in 1, 3, and 5 years TR2 (2 points): No FNA or follow-up TR1 (0 points): No FNA or follow-up ACR TI-RADS recommends that no more than two nodules with the highest ACR TI-RADS point total should be biopsied and no more than four nodules should be followed. Interpreted by: Raymon Broussard DO Signed by: Raymon Broussard DO 06/16/24 Final resultMHPTRadiology, Radiologist, - 06/16/2024 EXAMINATION: THYROID ULTRASOUND 06/14/2024 COMPARISON: None. TECHNIQUE: Real-time and color flow sonographic images were obtained using a linear transducer. [id number]. HISTORY: F 54 y/o old. ORDERING SYSTEM PROVIDED HISTORY: Thyroid nodule FINDINGS: Right thyroid lobe: 3.8 x 1.8 x 2.0cm Left thyroid lobe: 3.4 x 1.4 x 0.9cm Isthmus: Choose 1cm Echotexture: Normal Vascularity: Normal Thyroid Nodules: NODULE: 1 Size: 15 x 16 x 18 mm Location: Mid right thyroid 1. Composition: Mixed cystic and solid (1) 2. Echogenicity: Hypoechoic (2) 3. Shape: Bdfqf-pajz-gpze (0) 4. Margins: Ill-defined (0) 5. Echogenic foci: Macrocalcifications (1) ACR TI-RADS total points: 4 ACR TI-RADS risk category: TR4 Soft tissues: No visualized lymphadenopathy IMPRESSION: Right thyroid nodule as detailed with potential follow-up as below: NODULE 1: ACR TI-RADS TR4: Recommend: Ultrasound-guided fine needle aspiration. ACR TI-RADS recommendations: TR5 (>= 7 points): FNA if >= 1 cm; follow-up if 0.5-0.9 cm in 1, 2, 3, 4, and 5 years TR4 (4-6 points): FNA if >= 1.5 cm; follow-up if 1.0-1.4 cm in 1, 2, 3, and 5 years TR3 (3 points): FNA if >= 2.5 cm; follow-up if 1.5-2.4 cm in 1, 3, and 5 years TR2 (2 points): No FNA or follow-up TR1 (0 points): No FNA or follow-up ACR TI-RADS recommends that no more than two nodules with the highest ACR TI-RADS point total should be biopsied and no more than four nodules should be followed. Interpreted by: Raymon Broussard DO Signed by: Raymon Broussard DO 06/16/24 Final result [facility] HealthcareUS THYROIDEXAMINATION: THYROID ULTRASOUND 06/14/2024 COMPARISON: None. TECHNIQUE: Real-time and color flow sonographic images were obtained using a linear transducer. [id number]. HISTORY: F 54 y/o old. ORDERING SYSTEM PROVIDED HISTORY: Thyroid nodule FINDINGS: Right thyroid lobe: 3.8 x 1.8 x 2.0cm Left thyroid lobe: 3.4 x 1.4 x 0.9cm Isthmus: Choose 1cm Echotexture: Normal Vascularity: Normal Thyroid Nodules: NODULE: 1 Size: 15 x 16 x 18 mm Location: Mid right thyroid 1. Composition: Mixed cystic and solid (1) 2. Echogenicity: Hypoechoic (2) 3. Shape: Gwvsi-xggr-iypw (0) 4. Margins: Ill-defined (0) 5. Echogenic foci: Macrocalcifications (1) ACR TI-RADS total points: 4 ACR TI-RADS risk category: TR4 Soft tissues: No visualized lymphadenopathy IMPRESSION: Right thyroid nodule as detailed with potential follow-up as below: NODULE 1: ACR TI-RADS TR4: Recommend: Ultrasound-guided fine needle aspiration. ACR TI-RADS recommendations: TR5 (>= 7 points): FNA if >= 1 cm; follow-up if 0.5-0.9 cm in 1, 2, 3, 4, and 5 years TR4 (4-6 points): FNA if >= 1.5 cm; follow-up if 1.0-1.4 cm in 1, 2, 3, and 5 years TR3 (3 points): FNA if >= 2.5 cm; follow-up if 1.5-2.4 cm in 1, 3, and 5 years TR2 (2 points): No FNA or follow-up TR1 (0 points): No FNA or follow-up ACR TI-RADS recommends that no more than two nodules with the highest ACR TI-RADS point total should be biopsied and no more than four nodules should be followed. Interpreted by: Raymon Broussard DO Signed by: Raymon Broussard DO 06/16/24 Final resultNormalWyandot Memorial Hospital HospitalRadiology Study observation (narrative) [facility] HealthcareUS THYROIDOrdered By: Radiologist Radiology on [id number] swabr Work Phone: US Thyroid glandon [phone] thyroid nodule as detailed with potential follow-up as below: NODULE 1: ACR TI-RADS TR4: Recommend: Ultrasound-guided fine needle aspiration. ACR TI-RADS recommendations: TR5 (>= 7 points): FNA if >= 1 cm; follow-up if 0.5-0.9 cm in 1, 2, 3, 4, and 5 years TR4 (4-6 points): FNA if >= 1.5 cm; follow-up if 1.0-1.4 cm in 1, 2, 3, and 5 years TR3 (3 points): FNA if >= 2.5 cm; follow-up if 1.5-2.4 cm in 1, 3, and 5 years TR2 (2 points): No FNA or follow-up TR1 (0 points): No FNA or follow-up ACR TI-RADS recommends that no more than two nodules with the highest ACR TI-RADS point total should be biopsied and no more than four nodules should be followed. [facility] RIS CONSOLIDATEDEXAMINATION: THYROID ULTRASOUND 06/14/2024 COMPARISON: None. TECHNIQUE: Real-time and color flow sonographic images were obtained using a linear transducer. [id number]. HISTORY: F 54 y/o old. ORDERING SYSTEM PROVIDED HISTORY: Thyroid nodule FINDINGS: Right thyroid lobe: 3.8 x 1.8 x 2.0cm Left thyroid lobe: 3.4 x 1.4 x 0.9cm Isthmus: Choose 1cm Echotexture: Normal Vascularity: Normal Thyroid Nodules: NODULE: 1 Size: 15 x 16 x 18 mm Location: Mid right thyroid 1. Composition: Mixed cystic and solid (1) 2. Echogenicity: Hypoechoic (2) 3. Shape: Uozpn-kvbp-fjjj (0) 4. Margins: Ill-defined (0) 5. Echogenic foci: Macrocalcifications (1) ACR TI-RADS total points: 4 ACR TI-RADS risk category: TR4 Soft tissues: No visualized lymphadenopathy MHPN Raymon Sargent, DO - 06/16/2024 EXAMINATION: THYROID ULTRASOUND 06/14/2024 COMPARISON: None. TECHNIQUE: Real-time and color flow sonographic images were obtained using a linear transducer. [id number]. HISTORY: F 54 y/o old. ORDERING SYSTEM PROVIDED HISTORY: Thyroid nodule FINDINGS: Right thyroid lobe: 3.8 x 1.8 x 2.0cm Left thyroid lobe: 3.4 x 1.4 x 0.9cm Isthmus: Choose 1cm Echotexture: Normal Vascularity: Normal Thyroid Nodules: NODULE: 1 Size: 15 x 16 x 18 mm Location: Mid right thyroid 1. Composition: Mixed cystic and solid (1) 2. Echogenicity: Hypoechoic (2) 3. Shape: Agrpd-ngap-khjf (0) 4. Margins: Ill-defined (0) 5. Echogenic foci: Macrocalcifications (1) ACR TI-RADS total points: 4 ACR TI-RADS risk category: TR4 Soft tissues: No visualized lymphadenopathy IMPRESSION: Right thyroid nodule as detailed with potential follow-up as below: NODULE 1: ACR TI-RADS TR4: Recommend: Ultrasound-guided fine needle aspiration. ACR TI-RADS recommendations: TR5 (>= 7 points): FNA if >= 1 cm; follow-up if 0.5-0.9 cm in 1, 2, 3, 4, and 5 years TR4 (4-6 points): FNA if >= 1.5 cm; follow-up if 1.0-1.4 cm in 1, 2, 3, and 5 years TR3 (3 points): FNA if >= 2.5 cm; follow-up if 1.5-2.4 cm in 1, 3, and 5 years TR2 (2 points): No FNA or follow-up TR1 (0 points): No FNA or follow-up ACR TI-RADS recommends that no more than two nodules with the highest ACR TI-RADS point total should be biopsied and no more than four nodules should be followed. [facility] Thyroid glandOrdered By: Raymon Broussard on 06-16-2024 Aron Jimenez [employer] Work Phone: [place] Thyroid glandon [phone] Study observation (narrative)Aron Talavera SubC ControlT3, FREEon [id number] T3 [Mass/Vol]3.2 pg/mLNormal2.3-4.2Quest DiagnosticsComment on above:Performed By: #### [id number], [id number], 899 #### [facility] [address], [address] [place] [address] Architecture Intern: Neal Epperson MDT4, FREE [id number] T4 [Mass/Vol]1.1 ng/dLNormal0.8-1.8Quest DiagnosticsComment on above:Performed By: #### 866, [id number], 899 #### [facility] [address], [address] [place] [address] Architecture Intern: Neal MCNALLYjeannette [id number] Qn3.21 m[IU]/LNormalQuest DiagnosticsComment on above:Result Comment: Reference Range > or = 20 Years 0.40-4.50 Ranges First trimester 0.26-2.66 Second trimester 0.55-2.73 Third trimester 0.43-2.91Performed By: #### 866, [id number], 899 #### [facility] [address], [address] [place] [address] Architecture Intern: Neal Epperson [facility]BT Breast - bilateral screeningon 05-19-2024 No mammographic evidence of malignancy BIRADS: BIRADS - CATEGORY 1 Negative. Normal interval follow-up is recommended in 12 months. OVERALL ASSESSMENT - NEGATIVE A letter of notification will be sent to the patient regarding the results. [employer] recommends annual mammograms for women 40 years and older. Performing Facility: [place] [address] [facility] RIS CONSOLIDATEDEXAMINATION: SCREENING DIGITAL BILATERAL MAMMOGRAM WITH TOMOSYNTHESIS, 05/18/2024 [...] concerning grouping of microcalcification in either breast. [facility] RIS CONSOLIDATEDDBT Breast - bilateral screeningOrdered By: Raymon Broussard on [id number] [facility] Work Phone: mam [place]ATT DIGITAL SCREEN BILATERALon 05-19-2024 EXAMINATION: SCREENING DIGITAL BILATERAL MAMMOGRAM WITH TOMOSYNTHESIS, [...] concerning grouping of microcalcification in either breast. IMPRESSION: No mammographic evidence of malignancy BIRADS: BIRADS - CATEGORY 1 Negative. Normal interval follow-up is recommended in 12 months. OVERALL ASSESSMENT - NEGATIVE A letter of notification will be sent to the patient regarding the results. [employer] recommends annual mammograms for women 40 years and older. Performing Facility: [place] [address] Interpreted by: Raymon Broussard DO Signed by: Raymon Broussard DO 05/19/24 Final resultMHPTRadiology, Radiologist, - 05/19/2024 EXAMINATION: SCREENING DIGITAL BILATERAL MAMMOGRAM WITH TOMOSYNTHESIS, [...] concerning grouping of microcalcification in either breast. IMPRESSION: No mammographic evidence of malignancy BIRADS: BIRADS - CATEGORY 1 Negative. Normal interval follow-up is recommended in 12 months. OVERALL ASSESSMENT - NEGATIVE A letter of notification will be sent to the patient regarding the results. [employer] recommends annual mammograms for women 40 years and older. Performing Facility: [place] [address] Interpreted by: Raymon Broussard DO Signed by: Raymon Broussard DO 05/19/24 Final result [facility] [employer] WYATT DIGITAL SCREEN BILATERALEXAMINATION: SCREENING DIGITAL BILATERAL MAMMOGRAM WITH TOMOSYNTHESIS, 05/18/2024 [...] concerning grouping of microcalcification in either breast. IMPRESSION: No mammographic evidence of malignancy BIRADS: BIRADS - CATEGORY 1 Negative. Normal interval follow-up is recommended in 12 months. OVERALL ASSESSMENT - NEGATIVE A letter of notification will be sent to the patient regarding the results. [employer] recommends annual mammograms for women 40 years and older. Performing Facility: [place] [address] Interpreted by: Raymon Broussard DO Signed by: Raymon Broussard DO 05/19/[address] Joseph Warren HospitalRadiology Study observation (narrative) [facility] HOSPITALInflowControl W[place]ATT DIGITAL SCREEN BILATERALOrdered By: Radiologist Radiology on [id number] swabr Work Phone: dbt Breast - bilateral screeningon [id number] Study observation (narrative)Aron Jimenez [facility] HEAD NECK SOFT TISSUE THYROIDon [id number]: THYROID ULTRASOUND 01/03/2024 COMPARISON: None. HISTORY: ORDERING SYSTEM PROVIDED HISTORY: Thyroid nodule FINDINGS: Right thyroid lobe: 4.8 x 2.2 x 1.9cm Left thyroid lobe: 3.8 x 1.4 x 1.5cm Isthmus: 0.3cm Echotexture: Normal Vascularity: Normal Thyroid Nodules: NODULE: 1 Size: 16 x 18 x 14 mm Location: Mid right thyroid 1. Composition: Mixed cystic and solid (1) 2. Echogenicity: Hypoechoic (2) 3. Shape: 4. Margins: Ill-defined (0) 5. Echogenic foci: Macrocalcifications (1) ACR TI-RADS total points: 4 ACR TI-RADS risk category: TR4 Soft tissues: No visualized lymphadenopathy IMPRESSION: Right thyroid nodule as detailed with potential follow-up as below: NODULE 1: ACR TI-RADS TR4: Recommend: Ultrasound-guided fine needle aspiration. ACR TI-RADS recommendations: TR5 (>= 7 points): FNA if >= 1 cm; follow-up if 0.5-0.9 cm in 1, 2, 3, 4, and 5 years TR4 (4-6 points): FNA if >= 1.5 cm; follow-up if 1.0-1.4 cm in 1, 2, 3, and 5 years TR3 (3 points): FNA if >= 2.5 cm; follow-up if 1.5-2.4 cm in 1, 3, and 5 years TR2 (2 points): No FNA or follow-up TR1 (0 points): No FNA or follow-up ACR TI-RADS recommends that no more than two nodules with the highest ACR TI-RADS point total should be biopsied and no more than four nodules should be followed. Interpreted by: Raymon Broussard DO Signed by: Raymon Broussard DO 01/04/24 Final resultMHPTRadiology, Radiologist, MD - 01/04/2024 EXAMINATION: THYROID ULTRASOUND 01/03/2024 COMPARISON: None. HISTORY: ORDERING SYSTEM PROVIDED HISTORY: Thyroid nodule FINDINGS: Right thyroid lobe: 4.8 x 2.2 x 1.9cm Left thyroid lobe: 3.8 x 1.4 x 1.5cm Isthmus: 0.3cm Echotexture: Normal Vascularity: Normal Thyroid Nodules: NODULE: 1 Size: 16 x 18 x 14 mm Location: Mid right thyroid 1. Composition: Mixed cystic and solid (1) 2. Echogenicity: Hypoechoic (2) 3. Shape: 4. Margins: Ill-defined (0) 5. Echogenic foci: Macrocalcifications (1) ACR TI-RADS total points: 4 ACR TI-RADS risk category: TR4 Soft tissues: No visualized lymphadenopathy IMPRESSION: Right thyroid nodule as detailed with potential follow-up as below: NODULE 1: ACR TI-RADS TR4: Recommend: Ultrasound-guided fine needle aspiration. ACR TI-RADS recommendations: TR5 (>= 7 points): FNA if >= 1 cm; follow-up if 0.5-0.9 cm in 1, 2, 3, 4, and 5 years TR4 (4-6 points): FNA if >= 1.5 cm; follow-up if 1.0-1.4 cm in 1, 2, 3, and 5 years TR3 (3 points): FNA if >= 2.5 cm; follow-up if 1.5-2.4 cm in 1, 3, and 5 years TR2 (2 points): No FNA or follow-up TR1 (0 points): No FNA or follow-up ACR TI-RADS recommends that no more than two nodules with the highest ACR TI-RADS point total should be biopsied and no more than four nodules should be followed. Interpreted by: Raymon Broussard DO Signed by: Raymon Broussard DO 01/04/24 Final result [facility] HEAD NECK SOFT TISSUE THYROIDEXAMINATION: THYROID ULTRASOUND 01/03/2024 COMPARISON: None. HISTORY: ORDERING SYSTEM PROVIDED HISTORY: Thyroid nodule FINDINGS: Right thyroid lobe: 4.8 x 2.2 x 1.9cm Left thyroid lobe: 3.8 x 1.4 x 1.5cm Isthmus: 0.3cm Echotexture: Normal Vascularity: Normal Thyroid Nodules: NODULE: 1 Size: 16 x 18 x 14 mm Location: Mid right thyroid 1. Composition: Mixed cystic and solid (1) 2. Echogenicity: Hypoechoic (2) 3. Shape: 4. Margins: Ill-defined (0) 5. Echogenic foci: Macrocalcifications (1) ACR TI-RADS total points: 4 ACR TI-RADS risk category: TR4 Soft tissues: No visualized lymphadenopathy IMPRESSION: Right thyroid nodule as detailed with potential follow-up as below: NODULE 1: ACR TI-RADS TR4: Recommend: Ultrasound-guided fine needle aspiration. ACR TI-RADS recommendations: TR5 (>= 7 points): FNA if >= 1 cm; follow-up if 0.5-0.9 cm in 1, 2, 3, 4, and 5 years TR4 (4-6 points): FNA if >= 1.5 cm; follow-up if 1.0-1.4 cm in 1, 2, 3, and 5 years TR3 (3 points): FNA if >= 2.5 cm; follow-up if 1.5-2.4 cm in 1, 3, and 5 years TR2 (2 points): No FNA or follow-up TR1 (0 points): No FNA or follow-up ACR TI-RADS recommends that no more than two nodules with the highest ACR TI-RADS point total should be biopsied and no more than four nodules should be followed. Interpreted by: Raymon Broussard DO Signed by: Raymon Broussard DO 01/04/24 Final resultNormalRegency Hospital [facility] Eastiology Study observation (narrative) [facility] HEAD NECK SOFT TISSUE THYROIDOrdered By: Radiologist Radiology on [id number] swabr Work Phone: US Head and neck soft tissueon [id number] thyroid nodule as detailed with potential follow-up as below: NODULE 1: ACR TI-RADS TR4: Recommend: Ultrasound-guided fine needle aspiration. ACR TI-RADS recommendations: TR5 (>= 7 points): FNA if >= 1 cm; follow-up if 0.5-0.9 cm in 1, 2, 3, 4, and 5 years TR4 (4-6 points): FNA if >= 1.5 cm; follow-up if 1.0-1.4 cm in 1, 2, 3, and 5 years TR3 (3 points): FNA if >= 2.5 cm; follow-up if 1.5-2.4 cm in 1, 3, and 5 years TR2 (2 points): No FNA or follow-up TR1 (0 points): No FNA or follow-up ACR TI-RADS recommends that no more than two nodules with the highest ACR TI-RADS point total should be biopsied and no more than four nodules should be followed. [facility] RIS CONSOLIDATEDEXAMINATION: THYROID ULTRASOUND 01/03/2024 COMPARISON: None. HISTORY: ORDERING SYSTEM PROVIDED HISTORY: Thyroid nodule FINDINGS: Right thyroid lobe: 4.8 x 2.2 x 1.9cm Left thyroid lobe: 3.8 x 1.4 x 1.5cm Isthmus: 0.3cm Echotexture: Normal Vascularity: Normal Thyroid Nodules: NODULE: 1 Size: 16 x 18 x 14 mm Location: Mid right thyroid 1. Composition: Mixed cystic and solid (1) 2. Echogenicity: Hypoechoic (2) 3. Shape: 4. Margins: Ill-defined (0) 5. Echogenic foci: Macrocalcifications (1) ACR TI-RADS total points: 4 ACR TI-RADS risk category: TR4 Soft tissues: No visualized lymphadenopathy MHPN Raymon Sargent, DO - 01/04/2024 EXAMINATION: THYROID ULTRASOUND 01/03/2024 COMPARISON: None. HISTORY: ORDERING SYSTEM PROVIDED HISTORY: Thyroid nodule FINDINGS: Right thyroid lobe: 4.8 x 2.2 x 1.9cm Left thyroid lobe: 3.8 x 1.4 x 1.5cm Isthmus: 0.3cm Echotexture: Normal Vascularity: Normal Thyroid Nodules: NODULE: 1 Size: 16 x 18 x 14 mm Location: Mid right thyroid 1. Composition: Mixed cystic and solid (1) 2. Echogenicity: Hypoechoic (2) 3. Shape: 4. Margins: Ill-defined (0) 5. Echogenic foci: Macrocalcifications (1) ACR TI-RADS total points: 4 ACR TI-RADS risk category: TR4 Soft tissues: No visualized lymphadenopathy IMPRESSION: Right thyroid nodule as detailed with potential follow-up as below: NODULE 1: ACR TI-RADS TR4: Recommend: Ultrasound-guided fine needle aspiration. ACR TI-RADS recommendations: TR5 (>= 7 points): FNA if >= 1 cm; follow-up if 0.5-0.9 cm in 1, 2, 3, 4, and 5 years TR4 (4-6 points): FNA if >= 1.5 cm; follow-up if 1.0-1.4 cm in 1, 2, 3, and 5 years TR3 (3 points): FNA if >= 2.5 cm; follow-up if 1.5-2.4 cm in 1, 3, and 5 years TR2 (2 points): No FNA or follow-up TR1 (0 points): No FNA or follow-up ACR TI-RADS recommends that no more than two nodules with the highest ACR TI-RADS point total should be biopsied and no more than four nodules should be followed. [facility] Head and neck soft tissueOrdered By: Raymon Broussard on [id number] [employer] Work Phone: US Head and neck soft tissueon [id number] Study observation (narrative)[facility] BIOPSY THYROIDon [id number] [address] Ultrasound Report Signed with Addenda Patient: RODRIGUE MAC MR#: [id number] : 1970 Acct:[id number] Age/Sex: 52 / F ADM Date: 02/19/23 Loc: US Attending Dr: Saritha Rodriguez M.D. Ordering Physician: Saritha Rodriguez M.D. Date of Service: 02/19/23 Procedure(s): US biopsy thyroid Accession Number(s): [id number] cc: Physician,Non-Staff Jun; Saritha Rodriguez M.D. ADDENDUM The [address] [address] Patient Name: RODRIGUE MAC MRN: [id number] date: 1970 Sex: F Assigned Patient Location: US Current Patient Location: Accession/Order Number: [id number] Exam Date: 02/19/2023 11:20 Report Date: 02/26/2023 23:31 At the request of: SARITHA RODRIGUEZ Procedure: US biopsy thyroid Begin Addendum #1 COLLECTED DATE/TIME: 02/19/2023 10:10 EST Final Diagnosis Report for [facility] [place] RIGHT THYROID NODULE, FINE NEEDLE ASPIRATION: -BENIGN THYROID NODULE. 02/26/[address] Rodriguez. Verified with office staff that report was received. Original Report EXAMINATION: US biopsy thyroid HISTORY: Thyroid Nodule COMPARISON: Ultrasound soft tissue head with neck 02/02/2023 TECHNIQUE: After obtaining informed consent, ultrasound-guided fine needle aspiration was performed in the usual sterile manner. FINDINGS: IMAGING: Ultrasound. BIOPSY NEEDLE: 25-gauge; 3 separate passes LOCATION: Right lobe thick-walled heterogeneous, complex cystic 1. 9 x 1. 3 x 1. 3 cm lesion. SPECIMEN TYPE: Cellular tissue. LOCAL ANESTHETIC: Buffered Xylocaine. COMPLICATIONS: None. LABORATORY: Prepared slide smears and washings for cell block evaluation. OTHER: Negative. PATHOLOGY: Pending. An addendum will be added when results are available. Addendum Dictated By: Sekou Read M.D. Addendum Signed By: 10/12/23 1045 Addendum Cosigned By: DANIA/ /11/2330 TD/TT: / ADDENDUM US/US biopsy thyroid IMPRESSION: 1. Uneventful ultrasound guided fine needle aspiration (FNA). 2. Pathology results are pending. Electronically authenticated by: SEKOU READ Date: 02/26/2023 23:31 Addendum Dictated By: Sekou Read M.D. Addendum Signed By: 10/12/23 1045 Addendum Cosigned By: DD/ /11/2330 TD/TT: / [place] [address] Patient Name: RODRIGUE MAC MRN: [id number] date: 1970 Sex: F Assigned Patient Location: US Current Patient Location: US Accession/Order Number: [id number] Exam Date: 02/19/2023 11:20 Report Date: 02/19/2023 13:36 At the request of: SARITHA RODRIGUEZ Procedure: US biopsy thyroid EXAMINATION: US biopsy thyroid HISTORY: Thyroid Nodule COMPARISON: Ultrasound soft tissue head with neck 02/02/2023 TECHNIQUE: After obtaining informed consent, ultrasound-guided fine needle aspiration was performed in the usual sterile manner. FINDINGS: IMAGING: Ultrasound. BIOPSY NEEDLE: 25-gauge; 3 separate passes LOCATION: Right lobe thick-walled heterogeneous, complex cystic 1.9 x 1.3 x 1.3 c (more content not included)...TBHRadiology, Radiologist, - 10/12/[address] [address] Ultrasound Report Signed with Addenda Patient: RODRIGUE MAC MR#: [id number] : 1970 Acct:[id number] Age/Sex: 52 / F ADM Date: 02/19/23 Loc: US Attending Dr: Saritha Rodriguez M.D. Ordering Physician: Saritha Rodriguez M.D. Date of Service: 02/19/23 Procedure(s): US biopsy thyroid Accession Number(s): [id number] cc: Physician,Non-Staff Jun; Saritha Rodriguez M.D. ADDENDUM The [address] [address] Patient Name: RODRIGUE MAC MRN: [id number] date: 1970 Sex: F Assigned Patient Location: US Current Patient Location: Accession/Order Number: [id number] Exam Date: 02/19/2023 11:20 Report Date: 02/26/2023 23:31 At the request of: SARITHA RODRIGUEZ Procedure: US biopsy thyroid Begin Addendum #1 COLLECTED DATE/TIME: 02/19/2023 10:10 EST Final Diagnosis Report for [facility] [place] RIGHT THYROID NODULE, FINE NEEDLE ASPIRATION: -BENIGN THYROID NODULE. 02/26/[address] Rodriguez. Verified with office staff that report was received. Original Report EXAMINATION: US biopsy thyroid HISTORY: Thyroid Nodule COMPARISON: Ultrasound soft tissue head with neck 02/02/2023 TECHNIQUE: After obtaining informed consent, ultrasound-guided fine needle aspiration was performed in the usual sterile manner. FINDINGS: IMAGING: Ultrasound. BIOPSY NEEDLE: 25-gauge; 3 separate passes LOCATION: Right lobe thick-walled heterogeneous, complex cystic 1. 9 x 1. 3 x 1. 3 cm lesion. SPECIMEN TYPE: Cellular tissue. LOCAL ANESTHETIC: Buffered Xylocaine. COMPLICATIONS: None. LABORATORY: Prepared slide smears and washings for cell block evaluation. OTHER: Negative. PATHOLOGY: Pending. An addendum will be added when results are available. Addendum Dictated By: Sekou Read M.D. Addendum Signed By: Jun> 10/12/23 1045 Addendum Cosigned By: DD/ /11/2330 TD/TT: / ADDENDUM US/US biopsy thyroid IMPRESSION: 1. Uneventful ultrasound guided fine needle aspiration (FNA). 2. Pathology results are pending. Electronically authenticated by: SEKOU READ Date: 02/26/2023 23:31 Addendum Dictated By: Sekou Read M.D. Addendum Signed By: Jun> 10/12/23 1045 Addendum Cosigned By: DD/ /11/2330 TD/TT: / [place] [id number] Patient Name: RODRIGUE MAC MRN: [id number] date: 1970 Sex: F Assigned Patient Location: US Current Patient Location: US Accession/Order Number: [id number] Exam Date: 02/19/2023 11:20 Report Date: 02/19/2023 13:36 At the request of: SARITHA RODRIGUEZ Procedure: US biopsy thyroid EXAMINATION: US biopsy thyroid HISTORY: Thyroid Nodule COMPARISON: Ultrasound soft tissue head with neck 02/02/2023 TECHNIQUE: After obtaining informed consent, ultrasound-guided fine needle aspiration was performed in the usual sterile manner. FINDINGS: IMAGING: Ultrasound. BIOPSY NEEDLE: 25-gauge; 3 separate passes LOCATION: Right lobe thick-walled heterogeneous, complex cystic 1.9 x 1.3 x 1.3 cm lesion. SPECIMEN TYPE: Cellular tissue. LOCAL ANESTHETIC: Buffered Xylocaine. COMPLICATIONS: None. LABORATORY: Prepared slide smears and washings for cell block evaluation. OTHER: Negative. PATHOLOGY: Pending. An addendum will be added when results are available. US/US biopsy thyroid IMPRESSION: 1. Uneventful ultrasound guided fine needle aspiration (FNA). 2. Pathology results are pending. Electronically authenticated by: SEKOU READ Date: 02/19/2023 13:36 Dictated By: Sekou Read M.D. Signed By: 02/19/231338 DD/ 35 TD/TT: [employer]: CAROLYNE swabr BIOPSY THYROIDOrdered By: Radiologist Radiology on 10-12-2023 [employer] Work Phone: US THYROIDon [id number]: THYROID ULTRASOUND 07/27/2023 COMPARISON: None. HISTORY: ORDERING SYSTEM PROVIDED HISTORY: Thyroid nodule FINDINGS: Right thyroid lobe: 3.4 x 1.8 x 1.9cm Left thyroid lobe: 3.5 x 1.1 x 1.4cm Isthmus: 0.3cm Echotexture: Normal Vascularity: Normal Thyroid Nodules: NODULE: 1 Size: 15 x 15 x 13 mm Location: Mid right thyroid 1. Composition: Mixed cystic and solid (1) 2. Echogenicity: Hypoechoic (2) 3. Shape: Fhxmd-elcn-wedj (0) 4. Margins: Smooth (0) 5. Echogenic foci: Macrocalcifications (1) ACR TI-RADS total points: 4 ACR TI-RADS risk category: TR4 Soft tissues: No visualized lymphadenopathy IMPRESSION: Thyroid nodule as detailed with potential follow-up as below: NODULE 1: ACR TI-RADS TR4: Recommend: Ultrasound-guided fine needle aspiration. ACR TI-RADS recommendations: TR5 (>= 7 points): FNA if >= 1 cm; follow-up if 0.5-0.9 cm in 1, 2, 3, 4, and 5 years TR4 (4-6 points): FNA if >= 1.5 cm; follow-up if 1.0-1.4 cm in 1, 2, 3, and 5 years TR3 (3 points): FNA if >= 2.5 cm; follow-up if 1.5-2.4 cm in 1, 3, and 5 years TR2 (2 points): No FNA or follow-up TR1 (0 points): No FNA or follow-up ACR TI-RADS recommends that no more than two nodules with the highest ACR TI-RADS point total should be biopsied and no more than four nodules should be followed. Interpreted by: Raymon Broussard DO Signed by: Raymon Broussard DO 07/27/23 Final resultMHPTRadiology, Radiologist, - 07/27/2023 EXAMINATION: THYROID ULTRASOUND 07/27/2023 COMPARISON: None. HISTORY: ORDERING SYSTEM PROVIDED HISTORY: Thyroid nodule FINDINGS: Right thyroid lobe: 3.4 x 1.8 x 1.9cm Left thyroid lobe: 3.5 x 1.1 x 1.4cm Isthmus: 0.3cm Echotexture: Normal Vascularity: Normal Thyroid Nodules: NODULE: 1 Size: 15 x 15 x 13 mm Location: Mid right thyroid 1. Composition: Mixed cystic and solid (1) 2. Echogenicity: Hypoechoic (2) 3. Shape: Fuman-blhu-edsp (0) 4. Margins: Smooth (0) 5. Echogenic foci: Macrocalcifications (1) ACR TI-RADS total points: 4 ACR TI-RADS risk category: TR4 Soft tissues: No visualized lymphadenopathy IMPRESSION: Thyroid nodule as detailed with potential follow-up as below: NODULE 1: ACR TI-RADS TR4: Recommend: Ultrasound-guided fine needle aspiration. ACR TI-RADS recommendations: TR5 (>= 7 points): FNA if >= 1 cm; follow-up if 0.5-0.9 cm in 1, 2, 3, 4, and 5 years TR4 (4-6 points): FNA if >= 1.5 cm; follow-up if 1.0-1.4 cm in 1, 2, 3, and 5 years TR3 (3 points): FNA if >= 2.5 cm; follow-up if 1.5-2.4 cm in 1, 3, and 5 years TR2 (2 points): No FNA or follow-up TR1 (0 points): No FNA or follow-up ACR TI-RADS recommends that no more than two nodules with the highest ACR TI-RADS point total should be biopsied and no more than four nodules should be followed. Interpreted by: Raymon Broussard DO Signed by: Raymon Broussard DO 07/27/23 Final result [facility] Study observation (narrative)[facility] HealthcareUS [facility]ROID Ordered By: Radiologist Radiology on [id number] Work Phone: mam WYATT DIGITAL SCREEN BILATERALon 05-05-2023 EXAMINATION: SCREENING DIGITAL BILATERAL MAMMOGRAM WITH TOMOSYNTHESIS, 05/05/2023 TECHNIQUE: Screening mammography was performed with tomosynthesis including MLO and CC views of the bilateral breasts. Computer aided detection was used for the interpretation of this exam. COMPARISON: 30 Jul 2021; 17 April 2020; 24 March 2011 HISTORY: Screening. Negative family history of breast cancer. No hormonal replacement therapy or breast interventions. FINDINGS: Both breasts are composed of heterogeneously dense parenchyma. No skin thickening, nipple contour changes, suspicious calcifications, suspicious masses, areas of architectural distortion or significant interval changes are noted. IMPRESSION: No evidence of malignancy. Advise annual screening mammography. BREAST DENSITY SUMMARY C: The breasts are heterogeneously dense which may obscure small masses. BI-RADS 1 BIRADS: BIRADS - CATEGORY 1 Negative, no evidence of malignancy. Normal interval follow-up is recommended in 12 months. OVERALL ASSESSMENT - NEGATIVE A letter of notification will be sent to the patient regarding the results. [employer] recommends annual mammograms for women 40 years and older. Interpreted by: Hortencia Jimenez MD Signed by: Hortencia Jiemnez MD 05/05/23 Final resultMHPTRadiology, Radiologist, - 05/05/2023 EXAMINATION: SCREENING DIGITAL BILATERAL MAMMOGRAM WITH TOMOSYNTHESIS, 05/05/2023 TECHNIQUE: Screening mammography was performed with tomosynthesis including MLO and CC views of the bilateral breasts. Computer aided detection was used for the interpretation of this exam. COMPARISON: 30 Jul 2021; 17 April 2020; 24 March 2011 HISTORY: Screening. Negative family history of breast cancer. No hormonal replacement therapy or breast interventions. FINDINGS: Both breasts are composed of heterogeneously dense parenchyma. No skin thickening, nipple contour changes, suspicious calcifications, suspicious masses, areas of architectural distortion or significant interval changes are noted. IMPRESSION: No evidence of malignancy. Advise annual screening mammography. BREAST DENSITY SUMMARY C: The breasts are heterogeneously dense which may obscure small masses. BI-RADS 1 BIRADS: BIRADS - CATEGORY 1 Negative, no evidence of malignancy. Normal interval follow-up is recommended in 12 months. OVERALL ASSESSMENT - NEGATIVE A letter of notification will be sent to the patient regarding the results. [employer] recommends annual mammograms for women 40 years and older. Interpreted by: Hortencia Jimenez MD Signed by: Hortencia Jimenez MD 05/05/23 Final result [facility] observation (narrative)[facility] swabrJ[facility] WYATT DIGITAL SCREEN BILATERALOrdered By: Radiologist Radiology on [id number] Work Phone: nm thyroid w uptakeon 13-52-4561OV thyroid w uptake [facility] [place] [address] Nuclear Medicine Report Signed Patient: Rodrigue Mac MR#: [id number] : 1970 Acct:[id number] Age/Sex: 52 / F ADM Date: 03/02/23 Loc: [place] Room: Type: [facility] Attending Dr: Kevin Marsh MD Copies to: MD Willian Cr II, MD Ordering Provider: Kevin Marsh MD Date of Service: 03/02/23 NM/NM thyroid w uptake: E05.90, E05.10 NM thyroid w uptake 03/02/2023 8:26 AM SIGNS AND SYMPTOMS: Thyrotoxicosis crisis, fatigue PROTOCOL: Scintigraphic images of the neck were obtained after oral radiotracer administration. COMPARISON: None. RADIOPHARMACEUTICAL: 260 uCi of sodium I-123 FINDINGS: There is radiotracer accumulation within the salivary glands and thyroid bed. There is no focal abnormal increased or decreased radiotracer accumulation. 4 hour thyroid uptake value: 1.8% 24 hour thyroid uptake value: 1.3% NM/NM thyroid w uptake IMPRESSION: Low thyroid uptake values at 4 and 24 hours are noted. This can be seen in patients with excessive iodine intake, subacute thyroiditis, and Ivelisse's disease amongst other possibilities. Correlation with patient's clinical picture is recommended. Impression dictated by: Willian Leigh M.D.03/03/2023 10:45 AM Dictation Location: [place] [address] Transcribed By: [facility] [place] 03/03/23 1045 Dictated By: Willian Leigh II, MD 03/03/23 1030 Signed By: 03/03/23 1045NoKettering Health DaytonUS BIOPSY THYROIDon 29-67-0145Luzygmghe Study observation (narrative)CAROLYNE HensonKSM WYATT DIGITAL SCREEN BILATERALon 59-61-8285Of evidence of malignancy. Advise annual screening mammography. Breast density C BI-RADS 1 BIRADS: BIRADS - CATEGORY 1 Negative, no evidence of malignancy. Normal interval follow-up is recommended in 12 months. OVERALL ASSESSMENT - NEGATIVE A letter of notification will be sent to the patient regarding the results. The [employer] recommends annual mammograms for women 40 years and older. [facility] CONSOLIDATEDEXAMINATION: SCREENING DIGITAL BILATERAL MAMMOGRAM WITH TOMOSYNTHESIS, 07/30/2021 TECHNIQUE: Screening mammography was performed with tomosynthesis including MLO and CC views of the bilateral breasts. Computer aided detection was used for the interpretation of this exam. COMPARISON: 17 April 2020; 25 March 2016 HISTORY: Screening. Negative family history of breast cancer. 25 year history of oral contraceptive usage. Negative history of hormonal replacement therapy. No prior breast interventions. FINDINGS: The breasts are heterogeneously dense which can obscure small masses. No skin thickening, nipple contour changes, malignant type microcalcifications, areas of architectural distortion, or significant interval changes are noted. [facility] CONSOLIDATEDRadiology Study observation (narrative)[employer] Work Phone: mam WYATT DIGITAL SCREEN BILATERALOrdered By: Hortencia Jimenez on 50-28-3827BvvgnWondershake Phone: cbc Auto Differentialon 39-32-3483Cmyipvaqc (Bld) [#/Vol]0.04 10*3/[place], KYBasophils/100 WBC (Bld)1 %0 - 2 %WangYouUNIVERSITY OF MISSOU[facility]ARE, KYDifferential TypeNOT REPORTEDMercy HospitalAmobee [place], KYEosinophils (Bld) [#/Vol]0.11 10*3/[place], KYEosinophils/100 WBC (Bld)1 %1 - 4 %[employer]- [place], KYErythrocyte distribution width (RBC) [Ratio]13.0 %11.8 - 14.4 % [facility] HospitalSales[facility]- [place], KYHematocrit (Bld) [Volume fraction]44.4 %36.3 - 47.1 %[facility]- [place], KYHemoglobin (Bld) [Mass/Vol]14.3 g/dL11.9 - 15.1 g/dLWadsworth-Rittman Hospital- [place], KYImmature granulocytes (Bld) [#/Vol]10*3/[facility]- [place], KYImmature granulocytes (Bld) [#/Vol]0 %0[facility]- [place], KYInterpretation and review of laboratory resultsAbnormalWadsworth-R[facility]man Hospital- [place], KYLymphocytes (Bld) [#/Vol]1.59 10*3/[facility]- [place], KYLymphocytes/100 WBC (Bld)18 %Low24 - 43 %[facility]- [place], KYMCH (RBC) [Entitic mass]28.5 pg25.2 - 33.5 pgWadsworth-Rittman Hospital- [place], [place] MCHC (RBC) [Mass/Vol]32.2 g/dL28.4 - 34.8 g/dLWadsworth-Rittman Hospital- [place], KYMCV (RBC) [Entitic vol]88.4 fL82.6 - 102.9 fLWadsworth-Rittman Hospital- [place], KYMonocytes (Bld) [#/Vol] 0.48 10*3/[facility]- [place], KYMonocytes/100 WBC (Bld)5 %3 - 12 %[facility]- [place], KYPlatelet mean volume (Bld) [Entitic vol]9.5 fL8.1 - 13.5 fLWadsworth-Rittman Hospital- [place], KYPlatelets (Bld) [#/Vol]NOT REPORTEDWadsworth-Rittman Hospital- [place], KYPlatelets (Bld) [#/Vol]256 10*3/uLWadsworth-Rittman Hospital- [place], KYRBC (Bld) [#/Vol]5.02 10*6/uL3.95 - 5.11 m/[facility]- [place], KYRBC morphology finding Nom (Bld)NOT REPORTEDWadsworth-Rittman Hospital- [place], KYSegmented neutrophils/100 WBC (Bld)75 %High36 - 65 %[facility]- [place], KYSegs Absolute6.58[facility]- [place], KYWBC (Bld) [#/Vol]8.8 10*3/uLMercy Health- [place], KYWBC (Bld) [#/Vol]0.0 10*3/uL0.0 per 100 WBCWadsworth-Rittman Hospital- [place], KYWBC MorphologyNOT REPORTEDMerMultiCare [facility]acon[facility]- [place], KYComprehensive Metabolic Panelon 22-98-1669Nbhekin [Mass/Vol]4.2 g/dL3.5 - 5.2 g/dLKindred Healthcare Health- [place], [place] Albumin/Globulin [Mass ratio]1.4 {ratio}[facility]- [place], KYALP [Catalytic activity/Vol]60 U/L35 - 104 U/LMlakehealth beachwood [facility] Health- [place], KYALT [Catalytic activity/Vol] 11 U/L5 - 33 U/LMlakehealth beachwood medical center Health- [place], KYAnion gap [Moles/Vol]14 mmol/L9 - 17 mmol/L [facility]- [place], KYAST [Catalytic activity/Vol]19 U/L<32[facility]- [place], [place] Bilirubin Ql (U)0.54 mg/dL0.3 - 1.2 mg/dLKindred Healthcare Health- [place], KYBun/Cre Ratio16 [facility]- [place], KYCalcium [Mass/Vol]9.3 mg/dL8.6 - 10.4 mg/dLKindred Healthcare Health- [place], KYChloride [Moles/Vol]100 mmol/L98 - 107 mmol/LMlakehealth beachwood [facility] Health- [place], KYCO2 [Moles/Vol]22 mmol/L20 - 31 mmol/LMlakehealth beachwood medical center Health- [place], KYCreatinine [Mass/Vol]0.74 mg/dL0.5 - 0.9 mg/dLKindred Healthcare Health- [place], KYGFR >60>60 mL/minKindred Healthcare Health- [place], KYGFR Non->60>60 mL/minKindred Healthcare Health- [place], KYGlucose [Mass/Vol]115 mg/jCUtyk52 - 99 mg/dLKindred Healthcare Health- [place], KYInterpretation and review of laboratory resultsAbnormalKindred Healthcare Health- [place], KYPotassium [Moles/Vol]4.0 mmol/L3.7 - 5.3 mmol/LMbucyrus community hospitaly Health- [place], KYProtein [Mass/Vol]7.2 g/dL6.4 - 8.3 g/dLKindred Healthcare Health- [place], KYSodium [Moles/Vol]136 mmol/L135 - 144 mmol/LMVassalboro, KYUrea nitrogen [Mass/Vol]12 mg/dL6 - 20 mg/dLSan [place], [place] Hemoglobin A1Con 94-57-6311Cbuvkdg [Mass/Vol]123 mg/dLSan [place], [place] Comment on above:The ADA and AACC recommend providing the estimated average glucose result to permit better patient understanding of their HBA1c result. HbA1c (Bld) [Mass fraction]5.9 %4.8 - 5.9 %[place], KYLipid Panelon 16-49-9024Bwdguallswz [Mass/Vol]192 mg/dL<200[place], KYComment on above: Cholesterol Guidelines: <200 Desirable 200-240 Borderline >240 Undesirable Cholesterol in HDL [Mass/Vol]47 mg/dL>40[place], KYComment on above: HDL Guidelines: <40 Undesirable 40-59 Borderline >59 Desirable Cholesterol in LDL [Mass/Vol]127 mg/dL0 - 130 mg/dLSan [place], KYComment on above: LDL Guidelines: <100 Desirable 100-129 Near to/above Desirable 130-159 Borderline >159 Undesirable Direct (measured) LDL and calculated LDL are not interchangeable tests. Cholesterol in VLDL [Mass/Vol]NOT REPORTED1 - 30 mg/dLSan [place], [place] Cholesterol.total/Cholesterol in HDL [Mass ratio]4.1 {ratio}<5[place], KYTriglyceride [Mass/Vol]92 mg/dL<150[place], KYComment on above: Triglyceride Guidelines: <150 Desirable 150-199 Borderline 200-499 High >499 Very high Based on AHA Guidelines for fasting triglyceride, December 2011. Metabolic Panelon 44-37-9649CPC/1.73 sq M predicted among non-blacks MDRD (S/P/Bld) [Vol rate/Area][place], KYComment on above:Average GFR for 40-49 years old: 99 mL/min/1.73sq m Chronic Kidney Disease: <60 mL/min/1.73sq m Kidney failure: <15 mL/min/1.73sq m eGFR calculated using average adult body mass. Additional eGFR calculator available at: http://www.globalrph.Carsabi/multiple_crcl_2012.htm Stage 1: Some kidney damage normal GFR Stage 2: Mild kidney damage GFR 60-89 Stage 3: Moderate kidney damage GFR 30-59 Stage 4: Severe kidney damage GFR 15-29 Stage 5: Severe kidney damage GFR <15 ESRD - chronic treatment by dialysis or transplant Microscopic Urinalysison 00-62-9489Sgtnviggi, UANOT REPORTEDNoneMer[facility]- [place], KYBacteria, UA1+AbnormalNoneMercy Health- [place], KYCasts UANOT REPORTED/LPF [facility] [place], KYCrystals UANOT REPORTEDNone /HPFMercy Health- [place], [place] Epithelial Cells UA2 TO 5[facility] [place], KYInterpretation and review of laboratory resultsAbnormalMercy Health- [place], KYMucus, UATRACEAbnormalNoneMer[facility]- [place], [place]Other Observations UANOT REPORTEDNOT REQ.[facility] [place], KYRBC (U) [#/Vol]0 TO 2[facility] [place], KYRenal Epithelial, UrineNOT REPORTED0 /HPF [facility] [place], KYTrichomonas, UANOT REPORTEDNoneMer[facility]- [place], KYWBC, UA NoneMer[facility]- [place], KYYeast, UANOT REPORTEDNone[facility]- [place]-[facility] [place], KYTSH with Reflexon [id number] Qn1.58 m[IU]/LMercy Health- [place], [place] Urinalysis Reflex to Cultureon 33-13-4588Hryrqvaqp UrineNegativeNEGATIVEMercy Health- [place], KYColor, UAYELLOWYELLOWMercy Health- [place], KYGlucose, UrNegative NEGATIVEMercy Health- [place], KYInterpretation and review of laboratory results AbnormalMercy Health- [place], KYKetones Ql (U)NegativeNEGATIVEMercy Health- [place], [place] Leukocyte esterase Test strip Ql (U)NegativeNEGATIVEMercy Health- [place], KYNitrite, UrineNegativeNEGATIVEMercy Health- [place], KYpH, UA6.0[facility] [place], KYProtein (U) [Mass/Vol]NegativeNEGATIVEMercy Health- [place], KYSpecific [place], UA1.010[facility] [place], KYTurbidity UACLEARCLEARMercy Health- [place], KYUrinalysis CommentsNOT REPORTEDMercy Health- [place], KYUrine HgbTRACEAbnormalNEGATIVEMer Health- [place], [place] Urobilinogen, UrineNormalNormalMer Health- [place], KYVitamin D 25 Hydroxyon 04-67-9429Qgi D, 25-Oxzucjy45.1 ng/mL30 - 100 ng/mLMer Health- [place], KYComment on above: Reference Range: Vitamin D status Range Deficiency <20 ng/mL Mild Deficiency 20-30 ng/mL Sufficiency 30-100 ng/mL Toxicity >100 ng/mL Vital Signs Date TimeVital SignValuePerforming HhwpjaqjsFeviunnu35-67-4975 14:29-0500Body clxaip457 cmAkoriad Wilman FABIAN Work Phone: [facility]landKmdhwwyvic89-55-4242 14:29-0500Body mass index (BMI) [Ratio]34.91 kg/t0MunzfKevin Marsh MD Work Phone: [place] [address]Jdgykotxtp41-81-2996 14:29-0500Body dciftp089.69 kgKevin Marsh MD Work Phone: [place] [address]Ipslciwymn49-16-1822 14:29-0500Heart rate79 /min Kevin Marsh MD Work Phone: [place] [address]Hjjqxhapof52-52-5916 14:29-0500Respiratory rate18 /minKevin Marsh MD Work Phone: [place] [address]Cybxvmvsft49-40-1369 14:29-7927FkD8% (BldA) [Mass fraction]97 %Kevin Marsh MD Work Phone: [place] [address]Cswrykhfpg71-22-5039 11:17-0500Body uqqcye285.7 cmSaritha Rodriguez MD Work Phone: noResearch [facility] CenterGrdfuuvzno81-86-1784 11:17-0500Body mass index (BMI) [Ratio]34.97 kg/x4IjsbkySaritha Rodriguez MD Work Phone: noResearch [facility] CenterCqggjzjqwa13-47-6946 11:17-0500Body gxeyet479.33 kgSaritha Rodriguez MD Work Phone: [facility]landDnkxvplcyp65-63-4533 11:17-0500Diastolic blood oakqjwmm83 mm[Hg]Saritha Rodriguez MD Work Phone: [facility]landQcojkdmlgy40-57-4273 11:17-0500Heart rate71 /min Saritha Rodriguez MD Work Phone: [facility] NorthlandZwxmzjesfl89-63-5411 11:17-0500Systolic blood kxdrqcra913 mm[Hg]Saritha Rodriguez MD Work Phone: 1([phone]-[facility] NorthlandHspdnudspm40-00-0547 15:17-0400Body .7 cmGerri Rine PROFESSOR OF INDUSTRIAL TECHNOLOGY Work Phone: [phone])[facility] [place], [place] [address]Dpcksdvqen02-59-9516 15:17-0400Body mass index (BMI) [Ratio]35 kg/a1Vqhcf Rine PROFESSOR OF INDUSTRIAL TECHNOLOGY Work Phone: 1(845)[facility] [place], [place] [address]Xbmkameqsx82-54-1331 15:17-0400Body temperature 97.9 [degF]Viv Rine PROFESSOR OF INDUSTRIAL TECHNOLOGY Work Phone: 1(104)[address] [place], [place] 4501110-13-2025 15:17-0400Body .42 kgGerri Rine PROFESSOR OF INDUSTRIAL TECHNOLOGY Work Phone: 1(107)[address] [place], [place] 4501110-13-2025 15:17-0400Diastolic blood vtdfwaci94 mm[Hg]Viv Rine PROFESSOR OF INDUSTRIAL TECHNOLOGY Work Phone: 1([phone])[address] [place], [place] 4501110-13-2025 15:17-0400Heart rate86 /min Viv Rine PROFESSOR OF INDUSTRIAL TECHNOLOGY Work Phone: 1(469)[address] [place], [place] 4501110-13-2025 15:17-0400Respiratory rate18 /minGerri Rine PROFESSOR OF INDUSTRIAL TECHNOLOGY Work Phone: 1(963)[address] [place], [place] 4501110-13-2025 15:17-2016JuQ2% (BldA) [Mass fraction]90 %Viv Rine PROFESSOR OF INDUSTRIAL TECHNOLOGY Work Phone: 1(424)[address] [place], [place] 4501110-13-2025 15:17-0400Systolic blood xrxukwer194 mm[Hg]Viv Rine PROFESSOR OF INDUSTRIAL TECHNOLOGY Work Phone: 1(397)[address] [place], [place] 4501105-07-2025 14:32-0400Body ofwlcx639.7 Catarino Marsh MD Work Phone: [address] [place], [place] [address]Zvwqqdfzet24-70-5564 14:32-0400Body mass index (BMI) [Ratio]34.52 kg/f9JzhotKevin Marsh MD Work Phone: 1(180)045-[address] [place], [place] [address]Gwtnretezt77-52-8686 14:32-0400Body yfglte858.97 kgKevin Marsh MD Work Phone: 1(007)[address] [place], [place] 2879105-07-2025 14:32-0400Diastolic blood elumnvyz32 mm[Hg]Kevin Marsh MD Work Phone: 1(898)[address]05-07-2025 14:32-0400Heart rate64 /min Kevin Marsh MD Work Phone: 1(658)419-[address] [place], [place] [address]Ussiagsako88-09-6350 14:32-0400Respiratory rate16 /minKevin Marsh MD Work Phone: 1(428)[address] [place], [place] 2879105-07-2025 14:32-7893ArY5% (BldA) [Mass fraction]98 %Kevin Marsh MD Work Phone: 1(265)568-[address] [place], [place] [address]Xoqlazirwb94-38-8792 14:32-0400Systolic blood wfuqwvhz603 mm[Hg]Kevin Marsh MD Work Phone: 1(044)[address]04-08-2025 15:32-0400Body .7 cmSaritha Rodriguez MD Work Phone: [facility]landCveymutoas53-70-5255 15:32-0400Body mass index (BMI) [Ratio]34.97 kg/r9JrcjjqSaritha Rodriguez MD Work Phone: [facility] NorthlandVgcimpthrm28-77-6510 15:32-0400Body ttioaz034.33 kgSaritha Rodriguez MD Work Phone: [facility]landCktjhzbluc85-11-4911 15:32-0400Diastolic blood gdmkclwu41 mm[Hg]Saritha Rodriguez MD Work Phone: 1(419)[address] [place], [place] 9404304-08-2025 15:32-0400Heart rate67 /min Saritha Rodriguez MD Work Phone: 1(681)[address] [place] [address]-08-2025 15:32-0400Systolic blood gaxyqvnq174 mm[Hg]Saritha Rodriguez MD Work Phone: 1(356)[facility] NorthlandMrxlmnltmw51-14-2124 15:29-0400Body owkuwo203.7 cmSaritha Rodriguez MD Work Phone: 1([phone])[address] [place], [place] 9404310-30-2024 15:29-0400Body mass index (BMI) [Ratio]33.15 kg/p5KndpzxSaritha Rodriguez MD Work Phone: 1(292)[address] [place], [place] 9404310-30-2024 15:29-0400Body ptqrse61.88 kgSaritha Rodriguez MD Work Phone: 1(696)[address] [place], [place] 9404310-30-2024 15:29-0400Diastolic blood dwsugbht25 mm[Hg]Saritha Rodriguez MD Work Phone: 1(535)[address] [place] [address]-30-2024 15:29-0400Systolic blood dgemqbvp647 mm[Hg]Saritha Rodriguez MD Work Phone: 1(076)[address] [place], [place] 9404310-23-2024 14:12-0400Body bskuib076.7 cmEliudri Avae PROFESSOR OF INDUSTRIAL TECHNOLOGY Work Phone: 1(150)[address] [place], [place] 4501110-23-2024 14:12-0400Body mass index (BMI) [Ratio]33.45 kg/q0Dbhia Rine PROFESSOR OF INDUSTRIAL TECHNOLOGY Work Phone: 1(660)[address] [place], [place] 4501110-23-2024 14:12-0400Body temperature 98.29 [degF]Viv Rine PROFESSOR OF INDUSTRIAL TECHNOLOGY Work Phone: 1(963)[address] [place], [place] 4501110-23-2024 14:12-0400Body yjmjqy60.79 kgGerri Rine PROFESSOR OF INDUSTRIAL TECHNOLOGY Work Phone: 1(515)[address] [place], [place] 4501110-23-2024 14:12-0400Diastolic blood mm[Hg]Viv Rine PROFESSOR OF INDUSTRIAL TECHNOLOGY Work Phone: 1(907)[address] [place] [address]-23-2024 14:12-0400Heart rate84 /min Viv Rine PROFESSOR OF INDUSTRIAL TECHNOLOGY Work Phone: [facility]landZnacpmbxfz27-04-4474 14:12-0400Respiratory rate18 /minGerri Rine PROFESSOR OF INDUSTRIAL TECHNOLOGY Work Phone: noResearch Psychiatric CenterRmmgomclou39-75-5001 14:12-8133ZcW0% (BldA) [Mass fraction]96 %Viv Rine PROFESSOR OF INDUSTRIAL TECHNOLOGY Work Phone: [facility]landKbepufkobs19-18-4437 14:12-0400Systolic blood mm[Hg]Viv Rine PROFESSOR OF INDUSTRIAL TECHNOLOGY Work Phone: [facility] NorthlandDwkblffmyc52-93-2014 15:29-0400Body cxeoaj064.7 Catarino Marsh MD Work Phone: noResearch Psychiatric CenterEaenobcqxb75-72-2173 15:29-0400Body mass index (BMI) [Ratio]33.45 kg/u6VxzxdKevin Marsh MD Work Phone: [facility]landQzniccvvno47-30-6788 15:29-0400Body zerxcf45.79 kgKevin Marsh MD Work Phone: [facility] NorthlandFuzwnsozdz75-78-5834 15:29-0400Heart rate69 /min Kevin Marsh MD Work Phone: [facility]landPtaqkofbkb87-97-0818 15:29-0400Respiratory rate16 /minKevin Marsh MD Work Phone: noAR HealthcareComment on above:02 SAT 96% Encounters Encounter DateEncounter TypeCare ProviderFacilityStart: 01-24-2025 End: 38-67-6415Ormxha outpatient visit 25 minutesKevin Marsh MD Work Phone: noms [place] EndocrinologyComment on above: Thyroiditis (Primary Dx); Thyroid noduleStart: 01-24-2025 End: 37-29-3324qqlsrmppobNFFZY F SABBAGHNot AvailableStart: 01-24-2025 End: 53-63-5692Uvochv flowsheetHijake Rodriguez MD Work Phone: noms [place] OtolaryngologyStart: 01-24-2025 End: 24-13-0894Eaqqtd flowsNick Rodriguez MD Work Phone: noms [place] OtolaryngologyStart: 01-24-2025 End: 97-58-5611Jsxjys outpatient visit 15 minutesSaritha Rodriguez MD Work Phone: noms [place] OtolaryngologyComment on above:Thyroid nodule (Primary Dx)Start: 01-24-2025 End: 87-68-0450smfgoyshclMNTGJU H TIMMISNot AvailableStart: 01-01-2025 End: 93-95-4495quoinlwiqhLTGYX L RINENot AvailableStart: 01-01-2025 End: 17-72-0178Xlpqydb encounter statusGerri L Avae PROFESSOR OF INDUSTRIAL TECHNOLOGY Work Phone: [facility] Work Phone: Start: 01-01-2025 End: 02-45-5950Gniitggq preventive med est patient 40-64yrsGerri L Avae PROFESSOR OF INDUSTRIAL TECHNOLOGY Work Phone: noms [facility] MedicineComment on above:Wellness examination (Primary Dx); Hiatal hernia; Thyroid nodule; BMI 35.0-35.9,adult; 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; Thyroiditis, unspecified; Family history of colon cancer; Hyperthyroidism; Immunization due; Myalgia, other site; PrediabetesStart: 01-01-2025 End: 38-23-8943Ijkiiz flowsheetGerri L Rine PROFESSOR OF INDUSTRIAL TECHNOLOGY Work Phone: noms [facility] MedicineStart: 01-01-2025 End: 23-99-4467Hdiihx flowsheetGerri L Rine PROFESSOR OF INDUSTRIAL TECHNOLOGY Work Phone: noms [facility] MedicineStart: 12-27-2024 End: 48-66-3504Tnkxbxwhf Result EncounterGeneric External Data ProviderNOMS External Department UnsolicitedStart: 12-27-2024 End: 30-14-5605Kexbvpxlk Result EncounterGeneric External Data ProviderNOMS External Department UnsolicitedStart: 12-27-2024 End: 05-33-8796Xtlhsy OnlyViv Ayala PROFESSOR OF INDUSTRIAL TECHNOLOGY Work Phone: noms [facility] HospitalComment on above:Screening for deficiency anemia (Primary Dx); Diabetes mellitus screening; Screening, lipid; Dysuria; Encounter for vitamin deficiency screening; Wellness examinationStart: 12-27-2024 End: 32-50-5489Exzhvpt encounter statusViv Ayala PROFESSOR OF INDUSTRIAL TECHNOLOGY Work Phone: noms HealthcareStart: 12-26-2024 End: 87-85-7410ezmkealqrgFTBPX L RINPilar [facility] HospitalStart: 12-26-2024 End: 43-45-0120Vrorlurpuo hospital visit by [facility] UltrasoundComment on above:Thyroid noduleStart: 11-22-2024 End: 37-05-1035OcfhnqAzbtzk E Fruth PROFESSOR OF INDUSTRIAL TECHNOLOGY Work Phone: noms [facility] HospitalComment on above: Gastroesophageal reflux disease, unspecified whether esophagitis presentStart: 07-26-2024 End: 07-16-3314Tljyzd outpatient visit 25 minutesKevin Marsh MD Work Phone: noms ENDOCRINOLOGYComment on above:Thyroiditis (Primary Dx); Thyroid nodule (CMS/HCC); PalpitationsStart: 07-26-2024 End: 80-50-5701vuggalrljbIUDHB F SABBAGHNot AvailableStart: 07-26-2024 End: 89-38-7784Ffuzajdorothy Marsh MD Work Phone: noms ENDOCRINOLOGYStart: 07-26-2024 End: 1969Ygvfqkdorothy Marsh MD Work Phone: noms ENDOCRINOLOGYStart: 06-27-2024 End: 10-17-1292Qfkmni outpatient visit 15 minutesSaritha Rodriguez MD Work Phone: noms ENTComment on above:Thyroid nodule (CMS/HCC) (Primary Dx)Start: 06-27-2024 End: 59-20-0624pvzahvtkbgIPYADT Yaquelin Recinos AvailableStart: 06-27-2024 End: 96-69-7604Aeptws flowsNick Rodriguez MD Work Phone: noms CI ENTStart: 06-27-2024 End: 33-45-0970Bvpqsd Facundo Rodriguez MD Work Phone: noms CI ENTStart: 06-16-2024 End: 10-48-5169Ycelqjxrc Result EncounterSaritha Rodriguez MD Work Phone: noms External Department UnsolicitedStart: 06-16-2024 End: 24-70-7788Hzxktbvwe Result EncounterSaritha Rodriguez MD Work Phone: noms External Department UnsolicitedStart: 06-14-2024 End: 61-37-1571bbnkzygcugHJRJU Neil Sy [facility] HospitalStart: 06-14-2024 End: 22-40-9121Sopvrhowtv [facility] UltrasoundComment on above:Thyroid noduleStart: 05-24-2024 End: 30-53-7503WvoxiuXwyis Neil Ayala NP Work Phone: noms TSR FMComment on above:Gastroesophageal reflux disease, unspecified whether esophagitis presentStart: 05-19-2024 End: 81-13-7414Ixjysuwbl Result EncounterGeneric External Data ProviderNOMS External Department UnsolicitedStart: 05-19-2024 End: 90-39-4062Cyqewarhm Result EncounterGeneric External Data ProviderNOMS External Department UnsolicitedStart: 05-18-2024 End: 63-81-3450yshmdgxjnoQGFWG [facility] HospitalStart: 05-18-2024 End: 34-09-9929Uplkcxaihm hospital visit by [facility] M[facility] Room [facility] MammographyComment on above:Screening mammogram, encounter forStart: 01-19-2024 End: 56-65-7607Nbblar outpatient visit 15 minutesHijake Rodriguez MD Work Phone: noms CI ENTComment on above:Thyroid nodule (CMS/HCC) (Primary Dx)Start: 01-19-2024 End: 14-83-0892Fumgft flowsNick Rodriguez MD Work Phone: noms CI ENTStart: 01-19-2024 End: 95-37-1094Ebbbhy flowsheetSaritha Rodriguez MD Work Phone: noms CI ENTStart: 01-12-2024 End: 34-21-0169Zirpszy encounter statusGerri L Jamie PROFESSOR OF INDUSTRIAL TECHNOLOGY Work Phone: [facility] Work Phone: Start: 01-12-2024 End: 53-05-5206Ghsqxzyh preventive med est patient 40-64yrsGerri Neil Ayala PROFESSOR OF INDUSTRIAL TECHNOLOGY Work Phone: noms TSR FMComment on above:Wellness examination (Primary Dx); Immunization due; 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 (CMS/HCC); Thyroid nodule (CMS/HCC); Family history of colon cancer; Hiatal hernia; BMI 33.0-33.9,adultStart: 01-12-2024 End: 42-86-4043Xcpyfn flowsheetGerri L Avae PROFESSOR OF INDUSTRIAL TECHNOLOGY Work Phone: noms TSR FMStart: 01-12-2024 End: 44-16-3807Ottcck flowsheetGerri L Rine PROFESSOR OF INDUSTRIAL TECHNOLOGY Work Phone: noms TSR FMStart: 01-06-2024 End: 71-38-2343Qneyhhhnb encounterGerri L Avae PROFESSOR OF INDUSTRIAL TECHNOLOGY Work Phone: noms TSR FMStart: 01-04-2024 End: 19-13-6483Suapprkzu Result EncounterGeneric External Data ProviderNOMS External Department UnsolicitedStart: 01-04-2024 End: 92-76-5937Xuuzlimpe Result EncounterGeneric External Data ProviderNOMS External Department UnsolicitedStart: 01-03-2024 End: 08-64-6335emjsbxodpfALSUX [facility] HospitalStart: 01-03-2024 End: 89-23-4688Ejpoprzbpl hospital visit by [facility] UltrasoundComment on above:Thyroid noduleStart: 12-14-2023 End: 95-30-8417Esjxgy outpatient visit 25 minutesKevin Marsh MD Work Phone: noms ENDOCRINOLOGYComment on above:Thyroiditis (CMS/HCC) (Primary Dx); Thyroid nodule (CMS/HCC); PalpitationsStart: 12-14-2023 End: 00-36-2268Cijuln Dawit [place] MD Work Phone: noms ENDOCRINOLOGYStart: 12-14-2023 End: 71-63-0391Yzkvsc Dawit Marsh MD Work Phone: noms ENDOCRINOLOGYStart: 12-10-2023 End: 56-71-1425FkqtoaXiwbstt G Marisel DO Work Phone: noms TSR FMComment on above:Palpitations (Primary Dx) Start: 11-27-2023 End: 47-32-3923UkjhrfDzxyr Neil Jamie PROFESSOR OF INDUSTRIAL TECHNOLOGY Work Phone: noms TSR FMComment on above:Gastroesophageal reflux disease, unspecified whether esophagitis presentStart: 07-27-2023 End: 23-04-3906Fuvpqbpws Result EncounterSaritha Rodriguez MD Work Phone: noms External Department UnsolicitedStart: 07-27-2023 End: 54-95-5422Cumaehahn Result EncounterSaritha Rodriguez MD Work Phone: noms External Department UnsolicitedStart: 05-05-2023 End: 22-86-5692Myufudzya Result EncounterGeneric External Data ProviderNOMS External Department UnsolicitedStart: 05-05-2023 End: 68-46-4587Dtxniqvri Result EncounterGeneric External Data ProviderNOMS External Department UnsolicitedStart: 03-02-2023 End: 49-68-2417uzomnpgrkoQhjtz SabbaghFacility:[facility] Start: 02-19-2023 End: 14-09-6431Ihiifybqo Result Schuyler Rodriguez MD Work Phone: noms External Department UnsolicitedStart: 02-19-2023 End: 68-47-2607Bunpuetqz Result EncounterSaritha Rodriguez MD Work Phone: noms External Department UnsolicitedStart: 07-30-2021 End: 47-35-1218Mqcuzhptif hospital [facility] MammographyComment on above:Screening mammogram, encounter forStart: 10-18-2019 End: 74-13-7552Otfmcnbati [facility] ScheduleCL[facility]ON SPR[facility] Covid ScreeningComment on above:ArrivedStart: 04-18-2019 End: 22-34-3250Ozuyrclajn hospital visit by Cindy Ayala Work Phone: mthz LaboratoryComment on above:Encounter for annual routine gynecological examinationStart: 01-07-2019 End: 48-37-5667Gcxctuzmdw hospital visit by Cindy Sparrow Laboratory Procedures DateProcedureProcedure DetailPerforming ClinicianStart: 77-52-2306QS THYROID Generic External Data ProviderStart: 89-31-6943Vf soft tissue head & neck real time imge Michelet Rodriguez MD Work Phone: Start: 87-67-0414XC THYROIDSaritha Rodriguez MD Work Phone: Start: 86-41-8017Jj soft tissue head & neck real time imge Michelet Rodriguez MD Work Phone: Start: 55-92-9049BTA WYATT DIGITAL SCREEN BILATERAL Generic External Data ProviderStart: 05-18-2024 End: 16-25-8891Gdceyayjm mammography bi 2-view breast inc William Gunderson CNM Work Phone: Start: 39-50-3419SO HEAD NECK SOFT TISSUE THYROID Generic External Data ProviderStart: 68-38-7201Dq soft tissue head & neck real time imge docmHilary Yaquelin Rodriguez MD Work Phone: Start: 12-24-5228MN THYROIDHijake Rodriguez MD Work Phone: Start: 02-67-2493MKC WYATT DIGITAL SCREEN BILATERAL Generic External Data ProviderStart: 53-21-8476KufalzzinnrEtkag Rine PROFESSOR OF INDUSTRIAL TECHNOLOGY Work Phone: Start: 76-30-1578XG BIOPSY THYROIDHilamichael Rodriguez MD Work Phone: Start: 07-33-9719Lrlpxligppx observation [Identifier] in Cervix by Cyto stainGerri Rine PROFESSOR OF INDUSTRIAL TECHNOLOGY Work Phone: Start: 32-65-6384BamhlvulaydBiwdd Rine PROFESSOR OF INDUSTRIAL TECHNOLOGY Work Phone: Start: 54-55-1458Xcrhtoesu mammography bi 2-view breast inc solangesonny Jacome SALES WAREHOUSE DRIVER - CN Work Phone: Start: 26-24-3506Ucyxyxinkak observation [Identifier] in Cervix by Cyto stainMth MtStart: 92-89-557560 hydroxy includes fractions if performedGerri L Rine Work Phone: Start: 69-55-2514Adxoe of thyroid stimulating hormone tshGerri L Rine Work Phone: Start: 68-78-0610Jmbtrxmwhw glycosylated j0tLdrog L Rine Work Phone: Start: 33-78-4331Reste count complete auto&auto difrntl wbcGerri L Rine Work Phone: Start: 74-51-1423Bxodequknbukl metabolic panelGerri L Rine Work Phone: Start: 15-26-7558Upwtn panelGerri L Rine Work Phone: Start: 45-67-9693Rrsjmjsjzr microscopic onlyGerri L Rine Work Phone: Start: 92-96-2596Qnqst dip stick/tablet rgnt auto w/o microscopyEliudri Neil Ayala Work Phone: Plan of Treatment DateCare ActivityDetailAuthorStart: 68-93-9445ZSlS/Tdap/Td vaccine (3 - Td or Tdap)DTaP/Tdap/Td vaccine (3 - Td or Tdap)[facility] CenterStart: 59-47-6626Pmzhqksme for malignant neoplasm of colonNOMS HealthcareStart: 71-17-6473Qofxqdbxo for malignant neoplasm of colonBon [facility] Start: 25-34-1658Qhrbywza screeningDiabetes: Retinopathy ScreeningNOMS HealthcareStart: 30-59-5199Iifdxutsf for malignant neoplasm of breastBreast cancer screenBon Keenan Private HospitalStart: 01-23-2026 End: 78-34-3471Bpdnvcc encounter lpoyioswz05/04/2026 2:00 PM EST Office Visit [facility] [address] [place] [address] Kevin Marsh MD [address] [place] [address] NOMTony Murphy EndocrinologyStart: 41-23-9655Iauxt panelLipidsMercy HealthStart: 12-24-2025 End: 00-06-2238Qegmxws encounter olulvbyvx19/05/2026 3:30 PM EDT Office Visit [facility] [address] [place] [address] Viv Ayala, PROFESSOR OF INDUSTRIAL TECHNOLOGY [address] [place] [address] NOMTony [facility] MedicineStart: 08-15-2025 End: 65-41-5872Zmgtumt encounter nkuntqrtc22/27/2026 1:00 PM EDT Office Visit [facility] [address] [place] [address] Saritha Rodriguez MD [address] [facility] [address] [place] [address] CAROLYNE Serrano OtolaryngologyStart: 05-23-2025 End: 68-03-1714Jsiozzk encounter gqoqrhcje73/04/2026 3:15 PM EST Office Visit [facility] [address] [place] [address] Sis Jacome, SALES WAREHOUSE DRIVER -[address] [place] [address] Return in about 1 year (around 05/18/2025) for yearly.[facility] HospitalComment on above: Return in about 1 year (around 05/18/2025) for yearly.Start: 86-25-9466Growhszqfm MonitoringDepression MonitoringChesapeake Regional Medical CenterStart: 05-18-2025 Screening for malignant neoplasm of breastMammogramHUNTSMAN MENTAL [facility] HealthcareStart: 69-96-9888Upardjzee for malignant neoplasm of cervixBon [facility] Start: 59-84-4081Zshptumyq for malignant neoplasm of breastBreast cancer screen [facility] CenterStart: 45-04-7178Xfwnptygfc A1c measurementDiabetes: Hemoglobin R5YEEVB HealthcareStart: 01-24-2025 End: 17-29-0914Bcjizuu encounter procedureNOMS ENDOCRINOLOGYStart: 01-24-2025 End: 49-60-7796Vcknuowblmr [Units/volume] in Serum or PlasmaTSH Lab Routine Thyroiditis Expected: 01/24/2025 (Approximate), Expires: 01/24/2026NOAR HealthcareComment on above:Expected: 01/24/2025 (Approximate), Expires: 01/24/2026Start: 01-24-2025 End: 07-49-3753Oijyvzspv (T4) free [Mass/volume] in Serum or PlasmaT4, free Lab Routine Thyroiditis Expected: 01/24/2025 (Approximate), Expires: 01/24/2026[facility] HealthcareComment on above:Expected: 01/24/2025 (Approximate), Expires: 01/24/2026Start: 01-24-2025 End: 62-62-8273Fdwugkfidrkwgfnh (T3) Free [Mass/volume] in Serum or PlasmaT3, free Lab Routine Thyroiditis Expected: 01/24/2025 (Approximate), Expires: 01/24/2026[facility] Healthcare Work Phone: Comment on above:Expected: 01/24/2025 (Approximate), Expires: 01/24/2026Start: 01-24-2025 End: 18-36-1233Bqzmzcw encounter procedureNOMS [place] OtolaryngologyComment on above:ArrivedStart: 01-01-2025 End: 47-96-6425Uxsybkz encounter procedureNOMS TSR FMStart: 12-27-2024 End: 15-60-2623Aeixdbr encounter procedureNOMS CI ENTStart: 12-27-2024 End: 591165-xyqsrnozyuepfw D3 [Mass/volume] in Serum or PlasmaVitamin D 25 hydroxy Total Lab Routine Encounter for vitamin deficiency screening Expected: 12/27/2024 (Approximate), Expires: 12/27/2025[facility] HealthcareComment on above: Expected: 12/27/2024 (Approximate), Expires: 12/27/2025Start: 12-27-2024 End: 53-51-7670QLM panel - Blood by Automated countCBC Lab Routine Screening for deficiency anemia Wellness examination Expected: 12/27/2024 (Approximate), Expires: 12/27/2025[facility] Healthcare Work Phone: Comment on above:Expected: 12/27/2024 (Approximate), Expires: 12/27/2025Start: 12-27-2024 End: 66-01-0852Zmzxoxkzqwows metabolic 2000 panel - Serum or PlasmaComprehensive metabolic panel Lab Routine Diabetes mellitus screening Wellness examination Expected: 12/27/2024 (Approximate), Expires: 12/27/2025[facility] HealthcareComment on above:Expected: 12/27/2024 (Approximate), Expires: 12/27/2025Start: 12-27-2024 End: 01-75-1917Wwigpzetzz A1c/Hemoglobin.total in BloodHemoglobin A1c Lab Routine Diabetes mellitus screening Expected: 12/27/2024 (Approximate), Expires: 12/27/2025[facility] HealthcareComment on above:Expected: 12/27/2024 (Approximate), Expires: 12/27/2025Start: 12-27-2024 End: 40-94-5777Qxirk 1996 panel - Serum or PlasmaLipid panel Lab Routine Screening, lipid Wellness examination Expected: 12/27/2024 (Approximate), Ex vanessa: 12/27/2025[facility] HealthcareComment on above:Expected: 12/27/2024 (Approximate), Expires: 12/27/2025Start: 12-27-2024 End: 51-94-5034EWKMPIENVB, COMPLETE W/REFLEX TO CULTUREURINALYSIS, COMPLETE W/REFLEX TO CULTURE Lab Routine Dysuria Wellness examination Expected: 12/28/19, Expires: 12/27/2025[facility] HealthcareComment on above:Expected: 12/27/2024, Expires: 12/27/2025Start: 82-63-5197KULVM-19 Vaccine ( season)COVID- 19 Vaccine ( season)[facility]: [facility]-20-2024 Influenza vaccinationInfluenza Vaccine (#1)[facility] HealthcareStart: 10-20-2024 Influenza vaccinationFlu vaccine (#1)[facility] CenterStart: 08-14-2024 Glaucoma screeningDiabetes: Retinopathy ScreeningNOMS HealthcareStart: 07-26-2024 End: 71-89-4755Ucywnyt encounter procedureNOMS ENDOCRINOLOGYComment on above: ArrivedStart: 07-26-2024 End: 32-35-8535Tusyrtvbfox [Units/volume] in Serum or PlasmaTSH Lab Routine Thyroiditis Expected: 07/26/2024 (Approximate), Expires: 07/26/2025[facility] HealthcareComment on above:Expected: 07/26/2024 (Approximate), Expires: 07/26/2025Start: 07-26-2024 End: 53-65-8112Tiisrsnik (T4) free [Mass/volume] in Serum or PlasmaT4, free Lab Routine Thyroiditis Expected: 07/26/2024 (Approximate), Expires: 07/26/2025[facility] HealthcareComment on above:Expected: 07/26/2024 (Approximate), Expires: 07/26/2025Start: 07-26-2024 End: 56-97-8748Hlunlqvzsdlcysvp (T3) Free [Mass/volume] in Serum or PlasmaT3, free Lab Routine Thyroiditis Expected: 07/26/2024 (Approximate), Expires: 07/26/2025[facility] Work Phone: Comment on above:Expected: 07/26/2024 (Approximate), Expires: 07/26/2025Start: 06-27-2024 End: 63-66-9486Jezscfo encounter procedureNOMS CI ENTComment on above:Arrived Start: 06-20-2024 End: 36-53-8810Ruteaoi encounter imdgyklus89/01/2025 2:50 PM EDT Office Visit [facility] [address] [place] [phone] Kevin Marsh MD [address] [place] [address] [facility]CRIN[facility]YStart: 06-14-2024 End: 61-36-3744Crtjcfg encounter rofcnjhlr11/26/2025 4:00 PM EDT Appointment [facility] [address] [place] [address] pt/ mediaCorey Hospital UltrasoundComment on above:pt/ media Start: 05-18-2024 End: 23-13-7604Iogmart encounter twsuflkdg03/27/2025 3:15 PM EST Office Visit [facility] [address] [place] [address] Sis Jacome, SALES WAREHOUSE DRIVER -CN[address] [place] [address] [facility] Part [facility] Dempsey HospitalComment on above:PAPStart: 05-17-2024 End: 77-23-2272Exjvtuh encounter kinujnliq54/26/2025 3:40 PM EST Office Visit [facility] [address] [place] [address] Saritha Rodriguez MD [address] [place] [address] [facility] CI ENTStart: 25-13-3211Mjjnaxydgs Monitoring Depression MonitoringBon Keenan Private HospitalStart: 04-65-9607Aucjzgfra for malignant neoplasm of breastMammogramNOMS HealthcareStart: 01-19-2024 End: 42-61-2741Xxssmxn encounter procedureNOMS CI ENTComment on above:Arrived Start: 01-12-2024 End: 60-62-9443Fjuqjhg encounter procedureNOMS TSR FMComment on above:Arrived Start: 45-17-5475Ahpet panelBon Keenan Private HospitalStart: 56-24-3549Miwaw screenLipid screenWadsworth-Rittman Hospital Work Phone: start: 35-36-9442Eaasr screening for proteinDiabetes: Urine Protein ScreeningNOAR HealthcareStart: 12-14-2023 End: 31-99-0091Ceshgvh encounter procedureNOMS SH ENDOCRINOLOGYComment on above: ArrivedStart: 12-14-2023 End: 03-65-1389Kkfpivcqhse [Units/volume] in Serum or PlasmaTSH Lab Routine Thyroiditis (CMS/HCC) Expected: 12/14/2023 (Approximate), Expires: 12/13/2024 [facility] HealthcareComment on above:Expected: 12/14/2023 (Approximate), Expires: 12/13/2024Start: 12-14-2023 End: 70-74-1345Qfcjamtzz (T4) free [Mass/volume] in Serum or PlasmaT4, free Lab Routine Thyroiditis (CMS/HCC) Expected: 12/14/2023 (Approximate), Expires: 12/13/2024N[facility] HealthcareComment on above:Expected: 12/14/2023 (Approximate), Expires: 12/13/2024Start: 12-14-2023 End: 05-84-8665Qgtjevtisimbplnt (T3) Free [Mass/volume] in Serum or PlasmaT3, free Lab Routine Thyroiditis (CMS/HCC) Expected: 12/14/2023 (Approximate), Expires: 12/13/2024[facility] Work Phone: Comment on above:Expected: 12/14/2023 (Approximate), Expires: 12/13/2024Start: 18-87-9005VTGRY-19 Vaccine ()COVID- 19 Vaccine ()[facility] CenterStart: 41-31-6590DEVZJ-19 Vaccine ()COVID-19 Vaccine ()[facility] HospitalStart: 82-25-4172Tqvrrqarg vaccinationInfluenza Vaccine (#1)[facility] HealthcareStart: 29-03-1030Dqwnabcvj vaccinationFlu vaccine (#1)[facility] HospitalStart: 41-70-2654Gnaevwssp for malignant neoplasm of breastBreast cancer screenWadsworth-Rittman HospitalStart: 93-53-3445Ciuogqtukc A1c measurementDiabetes: Hemoglobin R0BEISBChildren's Mercy NorthlandStart: 05-07-2022 End: 78-87-8737Cpqbblg encounter bjvmvhvbo46/16/2023 Office Visit Obstetrics and Gynecology Sis Jacome APRN - CNM [address] [place] [address] [place] [address] [facility] Part of [facility] HospitalStart: 09-10-4680Xqwgpcvzh for malignant neoplasm of cervixWadsworth-Rittman HospitalStart: 77-21-5534Xrulnjcfet A1c lilvehytduiU4A test (Diabetic or Prediabetic)[facility] HospitalStart: 04-23-2624Teqwl screening for proteinDiabetes: Urine Protein ScreeningChildren's Mercy NorthlandStart: 11-04-2021 End: 09-92-9228Aufetmisk to same day surgery ixrufs4711/04/2021 Surgery IP Unit Vimal Franklin MD [address] [place], [place] [id number] COLORECTAL CANCER SCREENING, NOT HIGH RISKMTHZ OR Comment on above:COLORECTAL CANCER SCREENING, NOT HIGH RISKStart: 11-04-2021 End: 03-08-5888Riqoa ca scrn not hi rsk indCOLORECTAL CANCER SCREENING, NOT HIGH RISK SCREENING COLONOSCOPY 11/04/2021 8:00 AM [facility] Start: 56-32-9811Kgjnmnekpj hospital visit by loxszwfnv25/16/2022 Hospital Encounter IP Unit Vimal Franklin MD [address] [facility] [place] [address] MTHZ ORStart: 40-39-2354Wmsnohkyot MonitoringDepression MonitoringKnox Community Hospitalart: 94-57-2909DBEHG-19 Vaccine (3 - Booster for Pfizer series)COVID-19 Vaccine (3 - Booster for Pfizer series) [facility] HospitalStart: 04-24-2020 End: 89-87-2383Jzkbio Visit04/24/2020 Office Visit Obstetrics and Gynecology Sis Jacome, SALES WAREHOUSE DRIVER - CNM [address] [place] [address] [facility] GYNECOLOGYStart: 70-00-0763Hozmecqgl vaccinationFlu vaccine (#1)[facility] HospitalLifeServe Innovations Phone: comment on above:Postponed from 11/20/2018 (Patient Refused)Start: 79-58-2530Jqiabwit cancer screenCervical cancer screenMorrow County Hospital: 79-72-8742Q0Y test (Diabetic or Prediabetic)A1C test (Diabetic or Prediabetic)[employer] Phone: start: 27-12-2106TjH5k (Bld) [Mass fraction]A1C test (Diabetic or Prediabetic)[facility] HospitalSalesforce JapanPiedmont [facility]: 92-24-4540Cshqinscsu A1c drevtmjjuefI1T test (Diabetic or Prediabetic)Aron Jimenez [facility]Rittman HospitalSthathaway: 15-95-9073Etdeydluj vaccinationFlu vaccine (#1)[facility]: 85-35-5248Stamsjjsebym 50+ years Vaccine (1 of 1 - PCV)Pneumococcal 50+ years Vaccine (1 of 1 - PCV)[facility]: 78-39-6648Kfyhmckap for malignant neoplasm of breastBreast cancer screenMorrow County Hospital: 71-73-0431Bmnmsoxpy for malignant neoplasm of colonColon cancer screen colonoscopyMorrow County Hospital: 26-55-4583Kmkkjhdn Vaccine (1 of 2) Shingles Vaccine (1 of 2)[facility]: 27-25-5082PPbJ/Tdap/Td vaccine (2 - Td)DTaP/Tdap/Td vaccine (2 - Td)[facility] Work Phone: comment on above:Postponed from 1998 (Not Indicated)Start: 03-02-2019 End: 65-15-8831Sbvmbe Visit03/02/2019 Office Visit Obstetrics and Gynecology Sis Jacome, SALES WAREHOUSE DRIVER - CNM [address] [place] [address] [facility]/GYNStart: 11-20-2018 Influenza vaccinationFlu vaccine (#1)[facility]: 2014 Screening for malignant neoplasm of colonWilson [facility]: 60-20-2655Jhbfmdyv screenDiabetes [facility]: 58-55-1899Chamu screenLipid [facility]: 15-06-6045Pqbdgfmxj for malignant neoplasm of cervixWilson Street Hospital: 17-47-6053UBbN/Tdap/Td vaccine (2 - Td or Tdap) DTaP/Tdap/Td vaccine (2 - Td or Tdap)[facility]: 37-64-2168TZrY/Tdap/Td vaccine (2 - Td)DTaP/Tdap/Td vaccine (2 - Td)[facility]: 79-07-5584Octpsfapr B vaccine (1 of 3 - 19+ 3-dose series)Hepatitis B vaccine (1 of 3 - 19+ 3-dose series)[facility]ron [facility]: 95-31-4077Awakukbkh C screeningHepatitis C screenWilson Street Hospital: 89-02-0957Vmrugsfcb for malignant neoplasm of colonNOAR Healthcare End: 76-53-9987Mzggi-19 AmbulatoryCovid-19 Ambulatory Lab Routine Once for 1 Occurrences starting 10/18/2019 until 10/18/2019[place]:Once for 1 Occurrences starting 10/18/2019 until 10/18/2019Covid-19 AmbulatoryCovid-19 Ambulatory Lab Routine 10/18/2019 2:56 PM [facility] [place] End: 69-74-4282Hjyeqyofjzhne procedure, preparation of smear, genital sourcePAP SMEAR Lab Routine Encounter For Annual Routine Gynecological Examination 1 Occurrences krwypkkj46/28/2020 until 04/18/2019[facility] Work Phone: comment on above:1 Occurrences starting 04/18/2019 until 04/18/2019 Immunizations Immunization DateImmunizationNotesCare ZoturqphOxxriafq43-78-3377ryqxxedsj, seasonal, injectable, preservative freeGerri Rine PROFESSOR OF INDUSTRIAL TECHNOLOGY Work Phone: [facility] NorthlandUspfmbfxpf60-33-5975zdhnytdue, seasonal, injectable, preservative freeGerri Rine PROFESSOR OF INDUSTRIAL TECHNOLOGY Work Phone: [facility] NorthlandBfaopztrvj67-60-4693xpljutjyp virus vaccine, unspecified formulationRachel Fruth PROFESSOR OF INDUSTRIAL TECHNOLOGY Work Phone: [facility] NorthlandUkjlmcknwt60-97-5756xeopofbyg, injectable, quadrivalent, preservative freeGerri Rine PROFESSOR OF INDUSTRIAL TECHNOLOGY Work Phone: [facility] NorthlandDoqlamemfn25-69-4475kegxkovgy virus vaccine, unspecified formulationGerri Rine PROFESSOR OF INDUSTRIAL TECHNOLOGY Work Phone: [facility] NorthlandDzjihjszgv34-22-4459czadxaqjc, injectable, quadrivalent, preservative freeGerri Rine PROFESSOR OF INDUSTRIAL TECHNOLOGY Work Phone: [facility] NorthlandVxfedyuzxa01-22-8447phicwpd toxoid, reduced diphtheria toxoid, and acellular pertussis vaccine, adsorbedGerri Rine PROFESSOR OF INDUSTRIAL TECHNOLOGY Work Phone: [facility] NorthlandFprfgmmavc83-46-3058zjpjckjbj, injectable, quadrivalent, preservative freeGerri Rine PROFESSOR OF INDUSTRIAL TECHNOLOGY Work Phone: [facility] NorthlandQdgkxqmplv61-09-4937kzytwa vaccine recombinant Viv Rine PROFESSOR OF INDUSTRIAL TECHNOLOGY Work Phone: [facility] NorthlandHrrqrdbocx77-33-2433nkxrwx vaccine recombinant Viv Rine PROFESSOR OF INDUSTRIAL TECHNOLOGY Work Phone: [facility] NorthlandAticalqirx26-84-1086nnbjjpgga, injectable, quadrivalent, preservative freeGerri Rine PROFESSOR OF INDUSTRIAL TECHNOLOGY Work Phone: [facility] NorthlandQjkvnntkbl20-95-5464kyvshsd toxoid, reduced diphtheria toxoid, and acellular pertussis vaccine, adsorbedGerri RineMercy Health Payers DatePayer CategoryPayerPoly [id number] Cross Blue ShieldBCBS Member Subscriber Plan / Payer (Effective 2022-) Name: Rodrigue Mac Relation to Subscriber: Self Name: Rodrigue Mac PayerID: Not on file Type: Not on file Address: [address] [place] [id number] [facility] [id number] 2022-Present [phone] [address] [place] [id number] [facility] [place] PPO xxxxxxxxxxxx 2016-Present [address] [place], [place] [address]sgsuvzvsynzj .[id number] [facility] PPO [id number] 2016-Present [address] [place], [place] [id number] 1.2.840.907197.1.13.239.2.7.3.740[id number] 2.16.840.1.053195.3.57[id number] 2.16.840.1.677165.3.57[id number] 2.16.840.1.574795.3.57[id number] 2.16.840.1.821937.3.57[id number] 2.16.840.1.943687.3.57[id number] 2.16.840.1.552293.3.57[id number] 2.16.840.1.789334.3.57[id number] 2.16.840.1.738024.3.57[id number] 2.16.840.1.07[id number] 2.840.1.950189.3.579.2.531 Social History DateTypeDetailFacilityStart: 01-25-2018 End: 76-83-2409Cndrapa smoking status [facility]: 01-25-2018 End: 12-21-2746Qbelwfv intakeYeC[facility]: 04-46-4187Ytvytaf CommentsocialMercy Health [facility]: 38-18-7832Fax Assigned At BirthNot on [facility]: 04-18-2019 End: 14-14-2945Irhnwug use and exposureNever usedMorrow County Hospital: 04-18-2019 End: 10-34-6329Mawubol intakeCurrent drinker of alcohol (finding)[facility] Work Phone: start: 07-20-2021 End: 67-57-4264Imwetbqj to SARS-CoV-2 (event)Not [facility] CenterStart: 05-12-2023 End: 13-03-0252Xsqoosz of Social functionChesapeake Regional Medical CenterStart: 19-44-8511Pbo hard is it for you to pay for the very basics like food, housing, medical care, and heatingNot hard at [facility](I/We) worried whether (my/our) food would run out before (I/we) got money to buy more.Never trueNOMS HealthcareWithin the last year, have you been afraid of your partner or ex-partner?NoNOMS HealthcareAre you now , , , , never or living with a partner?MarriedNOMS HealthcareHow often to you have a drink containing alcohol?Monthly or lessNOMS HealthcareHow many standard drinks containing alcohol do you have on a typical day?1 or 2NOMS HealthcareHow often do you have 6 or more drinks on 1 occasion?NeverNOMS HealthcareDo you feel stress - tense, restless, nervous, or anxious, or unable to sleep at night because yourmind is troubled all the time - these days [OSQ]Not at allNOAR HealthcareStart: 88-79-5770Iqc assigned at birthFeLewisGale Hospital Montgomery Start: 63-05-4954KiyApjprk (finding)[facility] CenterHow often do you have a drink containing alcohol?2-4 times a monthNOMS HealthcareDo you feel stress - tense, restless, nervous, or anxious, or unable to sleep at night because yourmind is troubled all the time - these days [OSQ]Only a [facility] Functional Status ZzpnPyetpulgivZlsojuPosgxhxi14-47-1962Xvmlo score [AUDIT-C]2 01/01/2025 6:31 AM EDT Mychart, GenericNOResearch Psychiatric CenterNzderctwfh51-34-7771Vlq often do you have a drink containing alcohol?2-4 times a month 01/01/2025 6:31 AM EDT Mychart, Generic 2-4 times a monthChildren's Mercy NorthlandMlvfxqauoi87-29-2525Akb many standard drinks containing alcohol do you have on a typical day?1 or 2 01/01/2025 6:31 AM EDT Mychart, Generic 1 or 2NOMS Kynqmpwvln93-33-9098Jvj often do you have 6 or more drinks on 1 occasion?Never 01/01/2025 6:31 AM EDT Mychart, Generic NeverChildren's Mercy [facility]land Clinical Notes 12-14-2023 to 01-24-2025 Note Date & WbvdAhgmJxnpvmrv16-77-9480 History of Present illness Narrative* Kevin Marsh MD - 01/24/2025 2:30 PM EST Rodrigue Mac is a 54 y.o. female No ref. provider found presents with chief complaint of ThyroidProblem and Follow-up (LAB/US) HPI: IM : 01/2025 Follow-up visit 01/24/2025 for lab within normal limits TSH 2.9, free T4 1.2 ( 0.8-1.8), free T3 3.2 ( 2.3-4.3) clinically euthyroid, she is off metoprolol also 07/2024 History of Present Illness The patient is a 54-year-old female who presents for a follow-up on her thyroid condition. She has been managing her thyroid condition with metoprolol, administered at a dosage of 25 mg oncedaily. Recent lab results indicate that her TSH levels have returned to normal, with a TSH of 3.21,free T4 of 1.1, and free T3 of 3.2. A biopsy was performed previously, which yielded normal results. She is scheduled for a subsequent scan in 12/2024. Interim History 11/2023: Followup visit 12/14/2023 for lab back in 05/2023 TSH 4.34, free T4 1 (0.8-1.8), free T3 of 3 (2.3- 4.4), She is only on metoprolol. Clinically euthyroid Interim History 05/2023: Followup visit 06/15/2023 for lab back in February, went into hypothyroidism, TSH 5.43, free T4 was 0.6 (0.8-1.8), free T3 of 1.9 (2.3- 4.4), and TRAb 1.56 (less than 2). She is only on metoprolol. Interim history: 02/2023. Followup visit 03/09/2023 for thyroid scan and uptake done, 4 hours 1.8, 24 hours 1.3, low uptake, diffuse tracer, no local uptake and I got the biopsy results, came back benign. She finished course of prednisone. She is still on metoprolol. She gained a couple of pounds. Feels less hyper. HPI: 02/2023 New patient sent from Dr. Saritha Rodriguez for hyperthyroidism. Labs in December 2022. TSH 0.0, free T42.8 (0.8-1.8). Repeated labs in January. TSH 0.01, TPO 3, TG antibody 1. Ultrasound done. Right lobe 5.3 x 2.2 x 2.5; left lobe 4 x 1.9 x 1.4. There is a big nodule, 3.4 x 2.7 x 2.4, solid, isoechoic, wider than taller, TR4, status post biopsy. We do not have the results. SUBJECTIVE: MEDICATIONS: Current Outpatient Medications Medication Instructions celecoxib (CELEBREX) 200 mg, Oral, 2 times daily cholecalciferol (VITAMIN D-3) 1,000 Units, Daily ferrous sulfate 325 mg, Daily with breakfast MULTIPLE VITAMINS PO omega-3 (FISH OIL) 1,000 mg, Daily pantoprazole (ProtoNix) 40 MG EC tablet TAKE 1 TABLET BY MOUTH EVERY MORNING. TAKE BEFORE MEALS. 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 Past Surgical History: Procedure Laterality Date SECTION, LOW TRANSVERSE [id number] child x3 FNA W IMAGING GUIDANCE 02/19/2023 thyroid TONSILLECTOMY REVIEW OF SYMPTOMS: 14 POINT OF SYSTEM REVIEWED AND NEGATIVE OBJECTIVE: Lab Results Component Value Date TSH 3.21 05/30/2024 TSH 4.34 06/17/2023 TSH 0.01 (L) 01/20/2023 Lab Results Component Value Date T4FREE 1.1 05/30/2024 T4FREE 1.0 06/17/2023 T4FREE 2.8 (H) 01/20/2023 Lab Results Component Value Date FREET3 3.2 05/30/2024 FREET3 3.0 06/17/2023 01/12/2024 2:12 PM 01/19/2024 3:29 PM 06/27/2024 3:32 PM 07/26/2024 2:32 PM 01/01/2025 3:17 PM 01/24/2025 11:17 AM 01/24/2025 2:29 PM Vitals BMI 33.45 kg/m2 33.15 kg/m2 34.97 kg/m2 34.52 kg/m2 35 kg/m2 34.97 kg/m2 34.91 kg/m2 BSA (m2) 2.19 m2 2.18 m2 2.23 m2 2.22 m2 2.23 m2 2.23 m2 2.26 m2 Systolic 124 108 122 108 128 129 Diastolic 78 71 67 72 82 80 Heart Rate 84 67 64 86 71 79 SpO2 96 % 98 % 90 % 97 % Temp 98.3 F 97.9 F Resp 18 16 18 18 Height (in) 5' 8 5' 8 5' 8 5' 8 5' 8 5' 8 5' 8.5 Weight (lb) 220 218 230 227 230.2 230 233 Visit Report Report Report Report Report Report Report Report Report Report Physical Exam Constitutional: Appearance: Normal appearance. She is normal weight. HENT: Head: Normocephalic and atraumatic. Right Ear: External ear normal. Nose: Nose normal. Mouth/Throat: Pharynx: Oropharynx is clear. Eyes: Extraocular Movements: Extraocular movements intact. Pupils: Pupils are equal, round, and reactive to light. Cardiovascular: Rate and Rhythm: Normal rate and regular rhythm. Pulmonary: Effort: Pulmonary effort is normal. Abdominal: General: Abdomen is flat. Palpations: Abdomen is soft. Musculoskeletal: General: Normal range of motion. Skin: General: Skin is warm. Neurological: General: No focal deficit present. Mental Status: She is alert. Psychiatric: Mood and Affect: Mood normal. Behavior: Behavior normal. ASSESSMENT AND PLAN: Assessment/Plan Diagnoses and all orders for this visit: Thyroiditis - T3, free; Future - T4, free; Future - TSH; Future Resolved, thyroid function tests within normal limits in 12/2024, no need for antithyroid medication we will watch. Thyroid nodule Had big nodule 3.4 cm following her ENT Follow-up 1 year documented in this encounterChildren's Mercy NorthlandAcpaabkclu35-50-2377 History of Present illness Narrative* Saritha Rodriguez MD - 01/24/2025 11:20 AM EST Subjective Patient ID: Rodrigue Mac is a 54 y.o. female who presents for Thyroid Nodule Thyroid nodule 47l13p42ej compared to 24s12y86ha in May. 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 11/30/2023 Thyroiditis, unspecified 11/30/2023 Resolved Ambulatory Problems Diagnosis Date Noted Ulcer of esophagus with bleeding 12/09/2021 Past Medical History: Diagnosis Date Anxiety Depression Disease of thyroid gland Surgical History[2] Allergies[3] Medications Ordered Prior to Encounter[4] Objective Last Recorded Vitals Vitals: 01/24/25 1117 BP: 129/80 Pulse: 71 ENT Physical Exam Constitutional Appearance: patient appears well-developed, well-nourished and well-groomed, Communication/Voice: communication appropriate for developmental age; vocal quality normal; Assessment/Plan Diagnoses and all orders for this visit: Thyroid nodule Stable thyroid US. Repeat in 6 mo and then annually if still stable [1] Family History Problem Relation Name Age of Onset Iron deficiency Mother Macular degeneration Father Colon cancer Maternal Grandmother Chelly Cancer Maternal Grandmother Chelly Stomach cancer Maternal Grandfather Other (manic depression) Paternal Grandmother lithium use Cancer Paternal Grandmother Cancer Paternal Grandfather Seizures Daughter youngest Melanoma Neg Hx [2] Past Surgical History: Procedure Laterality Date SECTION, LOW TRANSVERSE [id number] child x3 FNA W IMAGING GUIDANCE 02/19/2023 thyroid TONSILLECTOMY [3] No Known Allergies [4] Current Outpatient Medications on File Prior to Visit Medication Sig Dispense Refill celecoxib (CeleBREX) 200 MG capsule Take 1 capsule (200 mg) by mouth in the morning and 1 capsule (200 mg) before bedtime. 60 capsule 1 cholecalciferol (Vitamin D-3) 25 MCG (1000 UT) capsule Take 1,000 Units by mouth Daily ferrous sulfate 325 (65 Fe) MG tablet Take 325 mg by mouth in the morning. Take with meals. MULTIPLE VITAMINS PO omega-3 (Fish Oil) 1000 MG capsule Take 1,000 mg by mouth Daily pantoprazole (ProtoNix) 40 MG EC tablet TAKE 1 TABLET BY MOUTH EVERY MORNING. TAKE BEFORE MEALS. DONOT CRUSH, CHEW OR SPLIT 90 tablet 1 sertraline (Zoloft) 50 MG tablet Take 50 mg by mouth Daily [DISCONTINUED] metoprolol succinate XL (Toprol-XL) 25 MG 24 hr tablet Take 1 tablet (25 mg) by mouth Daily Do not crush or chew. 90 tablet 3 No current facility-administered medications on file prior to visit. documented in this encounterChildren's Mercy [id number] History of Present illness Narrative* Viv Ayala NP - 01/01/2025 3:00 PM EDT Images from the original note were not included. Rodrigue Mac is a 54 y.o. 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 MULTIPLE VITAMINS PO omega-3 (FISH OIL) 1,000 mg, Daily pantoprazole (ProtoNix) 40 MG EC tablet TAKE 1 TABLET BY MOUTH EVERY MORNING. TAKE BEFORE MEALS. DONOT CRUSH, CHEW OR SPLIT sertraline (ZOLOFT) 50 mg, Daily ALLERGIES: No Known Allergies SURGICAL HISTORY: Past Surgical History: Procedure Laterality Date SECTION, LOW TRANSVERSE child x3 FNA W IMAGING GUIDANCE 02/19/2023 thyroid TONSILLECTOMY FAMILY HISTORY: Family History Problem Relation Name Age of Onset Iron deficiency Mother Macular degeneration Father Colon cancer Maternal Grandmother Chelly Cancer Maternal Grandmother Chelly Stomach cancer Maternal Grandfather Other (manic depression) Paternal Grandmother lithium use Cancer Paternal Grandmother Cancer Paternal Grandfather Seizures Daughter youngest Melanoma Neg Hx SOCIAL HISTORY: Social History Tobacco Use Smoking status: Never Smokeless tobacco: Never Substance Use Topics Alcohol use: Yes Alcohol/week: 1.0 - 2.0 standard drink of alcohol Types: 1 - 2 Standard drinks or equivalent per week Drug use: Never Depression: Not at risk (05/18/2024) Received from [facility] PHQ-2 PHQ-9 Total Score: 1 REVIEW OF SYMPTOMS: Review of Systems Constitutional: Negative for activity change, appetite change and fever. HENT: Negative for hearing loss, rhinorrhea and sore throat. Eyes: Negative for visual disturbance. Respiratory: Negative for cough and wheezing. Cardiovascular: Negative for chest pain, palpitations and leg swelling. Gastrointestinal: Negative for abdominal pain and blood in stool. Genitourinary: Negative for dysuria and flank pain. Musculoskeletal: Positive for arthralgias. Skin: Negative. Neurological: Negative for dizziness, syncope and light-headedness. Psychiatric/Behavioral: Negative. Hematological: Negative for adenopathy. Does not bruise/bleed easily. Endocrine: Negative for polydipsia. Allergic/Immunologic: Positive for environmental allergies. Negative for food allergies. OBJECTIVE: Visit Vitals BP 128/82 (BP Location: Left arm, Patient Position: Sitting, BP Cuff Size: Adult) Pulse 86 Temp 97.9 F (Tympanic) Resp 18 Ht 5' 8 Wt 230 lb 3.2 oz LMP 12/08/2023 (Exact Date) Comment: bled for one day SpO2 90% BMI 35.00 kg/m OB Status Postmenopausal Smoking Status Never BSA 2.23 m Physical Exam HENT: Head: Normocephalic. Right Ear: Tympanic membrane normal. Left Ear: Tympanic membrane normal. Nose: Nose normal. Mouth/Throat: Mouth: Mucous membranes are moist. Pharynx: No posterior oropharyngeal erythema. Eyes: Pupils: Pupils are equal, round, and reactive to light. Neck: Vascular: No carotid bruit. Cardiovascular: Rate and Rhythm: Normal rate and regular rhythm. Pulses: Normal pulses. Heart sounds: Normal heart sounds. No murmur heard. Pulmonary: Effort: Pulmonary effort is normal. No respiratory distress. Abdominal: General: Bowel sounds are normal. Palpations: Abdomen is soft. There is no mass. Hernia: No hernia is present. Musculoskeletal: General: Normal range of motion. Cervical back: Normal range of motion. Comments: Bilat tender deltoids, shoulders with full rom but tender end range, same with c spine, some increase in tenderness in the thighs, calves bilat Joints are without effusions Lymphadenopathy: Cervical: No cervical adenopathy. Skin: General: Skin is warm and dry. Capillary Refill: Capillary refill takes less than 2 seconds. Neurological: General: No focal deficit present. Mental Status: She is alert and oriented to person, place, and time. Psychiatric: Mood and Affect: Mood normal. Comments: Alert and interactive Rev labs of 12-27-24 and 12-28-24 at length with pt Rev us of thyroid of 12-27-24 Rev mammo 05-19-24 ASSESSMENT AND PLAN: Assessment/Plan Diagnoses and all orders for this visit: Wellness examination Comments: discussed at length lifestyle modificiation, whole foods, meditteranean /anti inflammatory diet. 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 Comments: follows with both ENT and dr lockhart, appts with both on jan 24 Thyroiditis, unspecified Comments: as above Family history of colon cancer Comments: due for 5 year recheck in apr Hyperthyroidism Comments: secondary to thyroiditis Immunization due Comments: flu vaccine Orders: - Flu vaccine greater than or equal to 3 years old, PF IM (IMM19) Myalgia, other site Comments: multifactorial, encouraged hydration, stretching, trial nsaid, if no better call will pursue depomedrol IM, aware nsaid not meant for qd ongoing, add tumeric Orders: - celecoxib (CeleBREX) 200 MG capsule; Take 1 capsule (200 mg) by mouth in the morning and 1 capsule (200 mg) before bedtime. Prediabetes Comments: aic is 5.9%, has risen, discussed lifestyle mod. call if any concerns ..I have reviewed and reconciled the history, allergies, family history, social history, and the medication list with the patient today. Follow up for as needed and annual. documented in this [facility]10-13-2025 Instructions* Patient Instructions* Viv Ayala NP - 01/01/2025 3:00 PM EDT Consider covid vaccine in the community Celebrex 200mg try it twice daily for a week, breakfast and supper, then once daily in 2 weeks if no progress with muscle pain call Tumeric supplement ( hi % curcumin, contain black seed to help with absorption, third constitution party label ) 80 oz of water per day Fiber, protein documented in this [facility]10-08-2025 History of Present illness Narrative* Viv Ayala NP - 12/27/2024 7:07 AM EDT Lab orders created documented in this encounterChildren's Mercy [id number] History of Present illness Narrative* Kevin Marsh MD - 07/26/2024 2:40 PM EDT Rodrigue Mac is a 54 y.o. female No ref. provider found presents with chief complaint of ThyroidProblem and Follow-up HPI: History of Present Illness The patient is a 54-year-old female who presents for a follow-up on her thyroid condition. She has been managing her thyroid condition with metoprolol, administered at a dosage of 25 mg oncedaily. Recent lab results indicate that her TSH levels have returned to normal, with a TSH of 3.21,free T4 of 1.1, and free T3 of 3.2. A biopsy was performed previously, which yielded normal results. She is scheduled for a subsequent scan in 12/2024. Interim History 11/2023: Followup visit 12/14/2023 for lab back in 05/2023 TSH 4.34, free T4 1 (0.8-1.8), free T3 of 3 (2.3- 4.4), She is only on metoprolol. Clinically euthyroid Interim History 05/2023: Followup visit 06/15/2023 for lab back in February, went into hypothyroidism, TSH 5.43, free T4 was 0.6 (0.8-1.8), free T3 of 1.9 (2.3- 4.4), and TRAb 1.56 (less than 2). She is only on metoprolol. Interim history: 02/2023. Followup visit 03/09/2023 for thyroid scan and uptake done, 4 hours 1.8, 24 hours 1.3, low uptake, diffuse tracer, no local uptake and I got the biopsy results, came back benign. She finished course of prednisone. She is still on metoprolol. She gained a couple of pounds. Feels less hyper. HPI: 02/2023 New patient sent from Dr. Saritha Rodriguez for hyperthyroidism. Labs in December 2022. TSH 0.0, free T42.8 (0.8-1.8). Repeated labs in January. TSH 0.01, TPO 3, TG antibody 1. Ultrasound done. Right lobe 5.3 x 2.2 x 2.5; left lobe 4 x 1.9 x 1.4. There is a big nodule, 3.4 x 2.7 x 2.4, solid, isoechoic, wider than taller, TR4, status post biopsy. We do not have the results. SUBJECTIVE: MEDICATIONS: Current Outpatient Medications Medication Instructions cholecalciferol (VITAMIN D-3) 1,000 Units, Daily ferrous sulfate 325 mg, Daily with breakfast metoprolol succinate XL (TOPROL-XL) 25 mg, Oral, Daily, Do not crush or chew. MULTIPLE VITAMINS PO omega-3 (FISH OIL) 1,000 mg, Daily pantoprazole (PROTONIX) 40 mg, Oral, Daily before breakfast, Do not crush, chew, or split. 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 (CMS/HCC) Past Surgical History: Procedure Laterality Date SECTION, LOW TRANSVERSE child x3 FNA W IMAGING GUIDANCE 02/19/2023 thyroid TONSILLECTOMY REVIEW OF SYMPTOMS: 14 POINT OF SYSTEM REVIEWED AND NEGATIVE OBJECTIVE: Lab Results Component Value Date TSH 3.21 05/30/2024 TSH 4.34 06/17/2023 TSH 0.01 (L) 01/20/2023 Lab Results Component Value Date T4FREE 1.1 05/30/2024 T4FREE 1.0 06/17/2023 T4FREE 2.8 (H) 01/20/2023 Lab Results Component Value Date FREET3 3.2 05/30/2024 FREET3 3.0 06/17/2023 06/15/2023 12:14 PM 08/04/2023 3:04 PM 12/14/2023 3:29 PM 01/12/2024 2:12 PM 01/19/2024 3:29 PM 06/27/2024 3:32 PM 07/26/2024 2:32 PM Vitals BMI 32.54 kg/m2 32.84 kg/m2 33.45 kg/m2 33.45 kg/m2 33.15 kg/m2 34.97 kg/m2 34.52 kg/m2 BSA (m2) 2.16 m2 2.17 m2 2.19 m2 2.19 m2 2.18 m2 2.23 m2 2.22 m2 Systolic 124 124 108 122 108 Diastolic 76 78 71 67 72 Heart Rate 65 69 84 67 64 SpO2 98 % 96 % 98 % Temp 98.3 F Resp 16 16 18 16 Height (in) 5' 8 5' 8 5' 8 5' 8 5' 8 5' 8 5' 8 Weight (lb) 214 216 220 220 218 230 227 Visit Report Report Report Report Report Report Report Physical Exam Constitutional: Appearance: Normal appearance. She is normal weight. HENT: Head: Normocephalic and atraumatic. Right Ear: External ear normal. Nose: Nose normal. Mouth/Throat: Pharynx: Oropharynx is clear. Eyes: Extraocular Movements: Extraocular movements intact. Pupils: Pupils are equal, round, and reactive to light. Cardiovascular: Rate and Rhythm: Normal rate and regular rhythm. Pulmonary: Effort: Pulmonary effort is normal. Abdominal: General: Abdomen is flat. Palpations: Abdomen is soft. Musculoskeletal: General: Normal range of motion. Skin: General: Skin is warm. Neurological: General: No focal deficit present. Mental Status: She is alert. Psychiatric: Mood and Affect: Mood normal. Behavior: Behavior normal. ASSESSMENT AND PLAN: Assessment/Plan Diagnoses and all orders for this visit: Thyroiditis - T3, free; Future - T4, free; Future - TSH; Future Thyroid nodule (CMS/HCC) Thyroid nodule, 3.4, status post biopsy. benign, plan per Dr. Bueno Palpitations Assessment & Plan 1. Thyroiditis: - TSH levels have normalized (TSH 3.21, free T4 1.1, free T3 3.2). - Heart rate slightly elevated, weight stable. - Discussed potential risk of reverting to hyperthyroid state and symptoms to watch for (shaking, tremors, rapid heartbeat, weight loss, diarrhea, anxiety). - Gradual reduction of metoprolol 25 mg once a day over the next 2 months: every other day, then every 2 to 3 days, followed by every 4 days, and finally once a week before discontinuing. Monitor forsymptoms and revert to previous dosage if necessary. Follow-up: Next scheduled visit in 6 months. documented in this encounterChildren's Mercy [id number] History of Present illness Narrative* Saritha Rodriguez MD - 06/27/2024 3:40 PM EDT Subjective Patient ID: Rodrigue Mac is a 54 y.o. female who presents for Thyroid Nodule (4 month follow up ultrasound [place] 06/16/24) Throid US shows a [id number] TR4 nodule compared to [id number] 4mo ago 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 (CMS/HCC) 11/30/2023 Thyroiditis, unspecified (CMS/HCC) 11/30/2023 Resolved Ambulatory Problems Diagnosis Date Noted Ulcer of esophagus with bleeding 12/09/2021 Past Medical History: Diagnosis Date Anxiety Depression (CMS/HCC) Disease of thyroid gland (CMS/HCC) Past Surgical History: Procedure Laterality Date SECTION, LOW TRANSVERSE child x3 FNA W IMAGING GUIDANCE 02/19/2023 thyroid TONSILLECTOMY No Known Allergies Current Outpatient Medications on File Prior to Visit Medication Sig Dispense Refill cholecalciferol (Vitamin D-3) 25 MCG (1000 UT) capsule Take 1,000 Units by mouth in the morning. ferrous sulfate 325 (65 Fe) MG tablet Take 325 mg by mouth in the morning. Take with meals. metoprolol succinate XL (Toprol-XL) 25 MG 24 hr tablet Take 1 tablet (25 mg) by mouth Daily Do not crush or chew. 90 tablet 3 MULTIPLE VITAMINS PO as directed omega-3 (Fish Oil) 1000 MG capsule Take 1,000 mg by mouth in the morning. pantoprazole (ProtoNix) 40 MG EC tablet Take 1 tablet (40 mg) by mouth in the morning. Take before meals. Do not crush, chew, or split.. 90 tablet 1 sertraline (Zoloft) 50 MG tablet Take 50 mg by mouth in the morning. No current facility-administered medications on file prior to visit. Objective Last Recorded Vitals Vitals: 06/27/24 1532 BP: 122/67 Pulse: 67 ENT Physical Exam Constitutional Appearance: patient appears well-developed, well-nourished and well-groomed, Communication/Voice: communication appropriate for developmental age; vocal quality normal; Assessment/Plan Diagnoses and all orders for this visit: Thyroid nodule (CMS/HCC) Stable thyroid nodule. Repeat US [address] [facility] [address] [facility] at pt's request documented in this encounterChildren's Mercy [id number] History of Present illness Narrative* Saritha Rodriguez MD - 01/19/2024 3:40 PM EDT Subjective Patient ID: Rodrigue Mac is a 53 y.o. female who presents for Thyroid Nodule (5 month check US 01/04/24 [facility] ) Thyroid US shows a [id number] RT TR4 nodule compared to [id number] nodule last February. FNA one year ago benign. Nodule [id number] when FNA done. 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 (CMS/HCC) 11/30/2023 Thyroiditis, unspecified (CMS/HCC) 11/30/2023 Resolved Ambulatory Problems Diagnosis Date Noted Ulcer of esophagus with bleeding 12/09/2021 Past Medical History: Diagnosis Date Anxiety Depression (CMS/HCC) Disease of thyroid gland (CMS/HCC) Past Surgical History: Procedure Laterality Date SECTION, LOW TRANSVERSE child x3 FNA W IMAGING GUIDANCE 02/19/2023 thyroid TONSILLECTOMY No Known Allergies Current Outpatient Medications on File Prior to Visit Medication Sig Dispense Refill cholecalciferol (Vitamin D-3) 25 MCG (1000 UT) capsule Take 1,000 Units by mouth in the morning. ferrous sulfate 325 (65 Fe) MG tablet Take 325 mg by mouth in the morning. Take with meals. metoprolol succinate XL (Toprol-XL) 25 MG 24 hr tablet Take 1 tablet (25 mg) by mouth Daily Do not crush or chew. 90 tablet 3 MULTIPLE VITAMINS PO as directed omega-3 (Fish Oil) 1000 MG capsule Take 1,000 mg by mouth in the morning. pantoprazole (ProtoNix) 40 MG EC tablet TAKE 1 TABLET BY MOUTH DAILY IN THE MORNING. DO NOT CRUSH, CHEW OR SPLIT 90 tablet 1 sertraline (Zoloft) 50 MG tablet Take 50 mg by mouth in the morning. No current facility-administered medications on file prior to visit. Objective Last Recorded Vitals Vitals: 01/19/24 1529 BP: 108/71 ENT Physical Exam Head and Face Appearance: head appears normal, face appears normal and face appears atraumatic; Palpation: facial palpation normal; Salivary: glands normal; Assessment/Plan Diagnoses and all orders for this visit: Thyroid nodule (CMS/HCC) Possible slight growth since last seen. As had a reassuring FNA one year ago I will hold off on repeating for now. Repeat US 4 mo documented in this encounterChildren's Mercy [id number] History of Present illness Narrative* Viv Ayala NP - 01/12/2024 2:30 PM EDT Rodrigue Mac is a 53 y.o. 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 Barretts) Bowels moving well, no black or bloody bm No skin changes Fair water, rare soda, rare etoh, nonsmoker SUBJECTIVE: MEDICATIONS: Current Outpatient Medications Medication Instructions cholecalciferol (VITAMIN D-3) 1,000 Units, Daily ferrous sulfate 325 mg, Daily with breakfast metoprolol succinate XL (TOPROL-XL) 25 mg, Oral, Daily, Do not crush or chew. MULTIPLE VITAMINS PO as directed omega-3 (FISH OIL) 1,000 mg, Daily pantoprazole (ProtoNix) 40 MG EC tablet TAKE 1 TABLET BY MOUTH DAILY IN THE MORNING. DO NOT CRUSH, CHEW OR SPLIT sertraline (ZOLOFT) 50 mg, Daily ALLERGIES: No Known Allergies SURGICAL HISTORY: Past Surgical History: Procedure Laterality Date SECTION, LOW TRANSVERSE child x3 FNA W IMAGING GUIDANCE 02/19/2023 thyroid TONSILLECTOMY FAMILY HISTORY: Family History Problem Relation Name Age of Onset Iron deficiency Mother Macular degeneration Father Colon cancer Maternal Grandmother Stomach cancer Maternal Grandfather Other (manic depression) Paternal Grandmother lithium use Cancer Paternal Grandmother Cancer Paternal Grandfather Seizures Daughter youngest Melanoma Neg Hx SOCIAL HISTORY: Social History Tobacco Use Smoking status: Never Smokeless tobacco: Never Substance Use Topics Alcohol use: Yes Drug use: Defer Depression: Not at risk (05/12/2023) [facility] PH[facility]-2 PHQ-9 Total Score: 0 REVIEW OF SYMPTOMS: Review of Systems Constitutional: Negative for activity change, appetite change and fever. HENT: Negative for hearing loss, rhinorrhea and sore throat. Eyes: Negative for visual disturbance. Respiratory: Negative for cough and wheezing. Cardiovascular: Negative for chest pain, palpitations and leg swelling. Gastrointestinal: Negative for abdominal pain and blood in stool. Genitourinary: Negative for dysuria and flank pain. Musculoskeletal: Negative for arthralgias. Skin: Negative. Neurological: Negative for dizziness, syncope and light-headedness. Psychiatric/Behavioral: Negative. Moderate work stress Hematological: Negative for adenopathy. Does not bruise/bleed easily. Endocrine: Negative for polydipsia. Allergic/Immunologic: Positive for environmental allergies. Negative for food allergies. OBJECTIVE: Visit Vitals BP 124/78 (BP Location: Left arm, Patient Position: Sitting, BP Cuff Size: Adult) Pulse 84 Temp 98.3 F (Tympanic) Resp 18 Ht 5' 8 Wt 220 lb LMP 12/08/2023 (Exact Date) Comment: bled for one day SpO2 96% BMI 33.45 kg/m OB Status Having periods Smoking Status Never BSA 2.19 m Physical Exam Constitutional: Comments: Spouse present with her supportive HENT: Head: Normocephalic. Right Ear: Tympanic membrane normal. Left Ear: Tympanic membrane normal. Nose: Nose normal. Mouth/Throat: Mouth: Mucous membranes are moist. Pharynx: No posterior oropharyngeal erythema. Eyes: Pupils: Pupils are equal, round, and reactive to light. Neck: Vascular: No carotid bruit. Cardiovascular: Rate and Rhythm: Normal rate and regular rhythm. Pulses: Normal pulses. Heart sounds: Normal heart sounds. No murmur heard. Pulmonary: Effort: Pulmonary effort is normal. No respiratory distress. Abdominal: General: Bowel sounds are normal. Palpations: Abdomen is soft. There is no mass. Hernia: No hernia is present. Musculoskeletal: General: Normal range of motion. Cervical back: Normal range of motion. Lymphadenopathy: Cervical: No cervical adenopathy. Skin: General: Skin is warm and dry. Capillary Refill: Capillary refill takes less than 2 seconds. Neurological: General: No focal deficit present. Mental Status: She is alert. Psychiatric: Mood and Affect: Mood normal. Comments: Alert and interactive Wt same Rev egd path from 12-09-21 dr carrington Rev labs from this week, pt given a full copy ASSESSMENT AND PLAN: Assessment/Plan Diagnoses and all orders for this visit: Wellness examination Comments: whole foods diet, avoid hpf and artificial sweetners, increase fiber and protein in diet, resistance training rec. 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 documented in this [facility]10-23-2024 Instructions* Patient Instructions* Viv Ayala NP - 01/12/2024 2:30 PM EDT Consider wean off of the pantoprazole every other day for a week then every 3rd day for 3 doses More fiber in diet (dheeraj seeds 2 tablespoons) , protein in diet documented in this [facility]10-18-2024 Telephone encounter Note* Telephone Encounter - Viv Ayala NP - 01/07/2024 10:10 AM EDT noted [id number] Miscellaneous Notes* Telephone Encounter - Viv Ayala NP - 01/07/2024 10:10 AM EDT noted * Telephone Encounter - Val Palomo RN - 01/07/2024 8:42 AM EDT She has appt with Dr Rodriguez 10 States he is the one who ordered and has been following her thyroid issues * Telephone Encounter - Val Palomo RN - 01/06/2024 1:09 PM EDT Attempted to call * Telephone Encounter - Viv Ayala NP - 01/06/2024 9:08 AM EDT They are recommending a biopsy on the thyroid based on the size of a thyroid nodule. This is NOT alarming, no need to be distressed. But , viv wondering if she would be ok with proceeding with ent referral for this and wanted her to be aware we would discuss at her appt on the Dec documented in this encounter[id number] Telephone encounter Note* Telephone Encounter - Val Palomo RN - 01/07/2024 8:42 AM EDT She has appt with Dr Rodriguez 01-18 States he is the one who ordered and has been following her thyroid issues [id number] Telephone encounter Note* Telephone Encounter - Val Palomo RN - 01/06/2024 1:09 PM EDT [facility]ed to call [id number] Telephone encounter Note* Telephone Encounter - Viv Ayala NP - 01/06/2024 9:08 AM EDT They are recommending a biopsy on the thyroid based on the size of a thyroid nodule. This is NOT alarming, no need to be distressed. But , viv wondering if she would be ok with proceeding with ent referral for this and wanted her to be aware we would discuss at her appt on the Dec [id number] History of Present illness Narrative* Kevin Marsh MD - 12/14/2023 2:50 PM EDT Rodrigue Mac is a 53 y.o. female No ref. provider found presents with chief complaint of ThyroidProblem HPI: Interim History 11/2023: Followup visit 12/14/2023 for lab back in 05/2023 TSH 4.34, free T4 1 (0.8-1.8), free T3 of 3 (2.3- 4.4), She is only on metoprolol. Clinically euthyroid Interim History 05/2023: Followup visit 06/15/2023 for lab back in February, went into hypothyroidism, TSH 5.43, free T4 was 0.6 (0.8-1.8), free T3 of 1.9 (2.3- 4.4), and TRAb 1.56 (less than 2). She is only on metoprolol. Interim history: 02/2023. Followup visit 03/09/2023 for thyroid scan and uptake done, 4 hours 1.8, 24 hours 1.3, low uptake, diffuse tracer, no local uptake and I got the biopsy results, came back benign. She finished course of prednisone. She is still on metoprolol. She gained a couple of pounds. Feels less hyper. HPI: 02/2023 New patient sent from Dr. Saritha Rodriguez for hyperthyroidism. Labs in December 2022. TSH 0.0, free T42.8 (0.8-1.8). Repeated labs in January. TSH 0.01, TPO 3, TG antibody 1. Ultrasound done. Right lobe 5.3 x 2.2 x 2.5; left lobe 4 x 1.9 x 1.4. There is a big nodule, 3.4 x 2.7 x 2.4, solid, isoechoic, wider than taller, TR4, status post biopsy. We do not have the results. SUBJECTIVE: MEDICATIONS: Current Outpatient Medications Medication Instructions cholecalciferol (VITAMIN D-3) 1,000 Units, Oral, Daily ferrous sulfate 325 mg, Oral, Daily with breakfast glucosamine-chondroitin 500-400 MG tablet 1 tablet, Oral, 3 times daily metoprolol succinate XL (TOPROL-XL) 25 mg, Oral, Daily, Do not crush or chew. MULTIPLE VITAMINS PO as directed omega-3 (FISH OIL) 1,000 mg, Oral, Daily pantoprazole (ProtoNix) 40 MG EC tablet TAKE 1 TABLET BY MOUTH DAILY IN THE MORNING. 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) Past Surgical History: Procedure Laterality Date SECTION, LOW TRANSVERSE child x3 FNA W IMAGING GUIDANCE 02/19/2023 thyroid TONSILLECTOMY REVIEW OF SYMPTOMS: 14 POINT OF SYSTEM REVIEWED AND NEGATIVE OBJECTIVE: Lab Results Component Value Date TSH 4.34 06/17/2023 TSH 0.01 (L) 01/20/2023 TSH 0.06 (L) 01/06/2023 Lab Results Component Value Date T4FREE 1.0 06/17/2023 T4FREE 2.8 (H) 01/20/2023 Lab Results Component Value Date FREET3 3.0 06/17/2023 Visit Vitals Pulse 69 Resp 16 Comment: 02 SAT 96% Ht 5' 8 Wt 220 lb BMI 33.45 kg/m OB Status Having periods Smoking Status Never BSA 2.19 m Physical Exam Constitutional: Appearance: Normal appearance. She is normal weight. HENT: Head: Normocephalic and atraumatic. Right Ear: External ear normal. Nose: Nose normal. Mouth/Throat: Pharynx: Oropharynx is clear. Eyes: Extraocular Movements: Extraocular movements intact. Pupils: Pupils are equal, round, and reactive to light. Cardiovascular: Rate and Rhythm: Normal rate and regular rhythm. Pulmonary: Effort: Pulmonary effort is normal. Abdominal: General: Abdomen is flat. Palpations: Abdomen is soft. Musculoskeletal: General: Normal range of motion. Skin: General: Skin is warm. Neurological: General: No focal deficit present. Mental Status: She is alert. Psychiatric: Mood and Affect: Mood normal. Behavior: Behavior normal. ASSESSMENT AND PLAN: Assessment/Plan Diagnoses and all orders for this visit: Thyroiditis (CMS/HCC) - T3, free; Future - T4, free; Future - TSH; Future Hyperthyroidism, most likely due to ATN, toxic nodule. Thyroid scan uptake shows thyroiditis with no focal uptake. Biopsy came back negative. Will continue metoprolol. Repeated lab in February shows hypothyroidism, currently only on beta-octavio. Thyroid nodule (CMS/HCC) Thyroid nodule, 3.4, status post biopsy. benign, plan per Dr. Bueno Palpitations - metoprolol succinate XL (Toprol-XL) 25 MG 24 hr tablet; Take 1 tablet (25 mg) by mouth Daily Do not crush or chew. Follow up in about 6 months (around 06/12/2024). 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) Thyroid nodule (CMS/HCC) Nontoxic uninodular goiter Family history of colon cancer Family history of malignant neoplasm of gastrointestinal tract Hiatal hernia Diaphragmatic hernia without mention of obstruction or gangrene BMI 33.0-33.9,adult documented in this encounter [facility] swabrEvaluation note* Diagnosis Thyroid nodule (CMS/HCC)- Primary Nontoxic uninodular goiter documented in this encounter [facility] HealthcareEvaluation note* Diagnosis Gastroesophageal reflux disease, unspecified whether esophagitis present documented in this encounter [facility] HealthcareEvaluation note* Diagnosis Palpitations- Primary documented in this encounter [facility] HealthcareEvaluation note* Diagnosis Thyroiditis (CMS/HCC)- Primary Unspecified thyroiditis Thyroid nodule (CMS/HCC) Nontoxic uninodular goiter Palpitations documented in this encounter [facility] HealthcareEvaluation note* Diagnosis Screening mammogram, encounter for documented in this encounter [facility] note* Diagnosis Gastroesophageal reflux disease, unspecified whether esophagitis present [facility]* Diagnosis Thyroid nodule Nontoxic uninodular goiter [facility] Diagnosis Thyroid nodule (CMS/HCC)- Primary Nontoxic uninodular goiter documented [facility]* Diagnosis Thyroiditis- Primary Unspecified thyroiditis Thyroid nodule (CMS/HCC) Nontoxic uninodular goiter Palpitations documented [facility]* Diagnosis Screening for deficiency anemia- Primary Screening for other and unspecified deficiency anemia Diabetes mellitus screening Screening for diabetes mellitus Screening, lipid Dysuria Encounter for vitamin deficiency screening Wellness examination documented in [facility]* Diagnosis Wellness examination- Primary Hiatal hernia Diaphragmatic hernia without mention of obstruction or gangrene Thyroid nodule Nontoxic uninodular goiter BMI 35.0-35.9,adult 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 Thyroiditis, unspecified Family history of colon cancer Family history of malignant neoplasm of gastrointestinal tract Hyperthyroidism Thyrotoxicosis without mention of goiter or other cause, without mention of thyrotoxic crisis or storm Immunization due Myalgia, other site Prediabetes Other abnormal glucose documented in this encounter [facility] note* Diagnosis Thyroid nodule- Primary Nontoxic uninodular goiter documented in this encounter [facility] note* Diagnosis Thyroiditis- Primary Unspecified thyroiditis Thyroid nodule Nontoxic uninodular goiter documented in this encounter [facility] Narrative* Imaging (Routine) - OpenSpecialty Diagnoses / ProceduresReferred By ContactReferred To ContactRadiology Diagnoses Thyroid nodule Procedures US THYROID Saritha Rodriguez Jr., MD [address] [place] [address] Phone: tel: fax: Referral IDStatusReasonStart DateExpiration DateVisits RequestedVisits [id number]/24/20252/24/202611 [facility] for visit Narrative* Imaging (Routine) - Not Required - RTASpecialtyDiagnoses / ProceduresReferred By ContactReferred To ContactRadiology Diagnoses Thyroid nodule Procedures US THYROID Saritha Rodriguez Jr., MD [address] [place] [address] Phone: tel: fax: Referral IDStatusReasonStart DateExpiration DateVisits RequestedVisits [id number] Required - RTA/ [facility] Advance Directives No Advanced Directives Records FoundDocuments on File TypeDate RecordedPatient RepresentativeExplanationAdvance Directives and Living WillPower of AttorneyTypeDate RecordedPatient RepresentativeExplanationACP- Advance DirectiveACP-Power of Railway Signal Technician Reason for Referral SpecialtyDiagnoses / ProceduresReferred By ContactReferred To ContactRadiology Diagnoses Screening mammogram, encounter for Procedures JOAO WYATT DIGITAL SCREEN BILATERAL Sis Jacome, [facility] [address] [place] [address] Referral IDStatusReasonStart DateExpiration DateVisits RequestedVisits [id number]/15/[id number] / Procedures Referred By ContactReferred To ContactRadiology Diagnoses Thyroid nodule Procedures US HEAD NECK SOFT TISSUE THYROID Saritha Rodriguez Jr., MD [address] [facility] [address] [place] [address] Referral IDStatusReasonStart DateExpiration DateVisits RequestedVisits [id number] Required - RTA/[id number] IDStatusReason Start DateExpiration DateVisits RequestedVisits [id number] / Summary Purpose Family History No Family History Records FoundNo Family History Records FoundNo Family History Records FoundNo Family History Records Found Additional Source Comments Reason for Visit (unrecogniz ed section and content) SpecialtyDiagnoses / ProceduresReferred By ContactReferred To ContactRadiology Diagnoses Screening mammogram, encounter for Procedures JOAO WYATT DIGITAL SCREEN BILATERAL Sis Jacome, [facility] [address] [place] [address] Referral IDStatusReasonStart DateExpiration DateVisits RequestedVisits [id number]/15/20222/[id number] / Procedures Referred By ContactReferred To ContactRadiology Diagnoses Thyroid nodule Procedures US HEAD NECK SOFT TISSUE THYROID Saritha Rodriguez Jr., MD [address] [facility] [address] [place] [address] Referral IDStatusReasonStart DateExpiration DateVisits RequestedVisits [id number] Required - RTA08/05//[id number] ExamReasonCommentsThyroid Nodule5 month check US 01/04/24 [facility] RefillReasonOnset DateCommentsMed [id number] Problem Referral IDStatusReasonStart DateExpiration DateVisits RequestedVisits [id number]/27/20252/[id number] DateCommentsMed Refill 05/24/2024ReasonCommentsThyroid Nodule4 month follow up ultrasound [place] 06/16/24ReasonCommentsThyroid ProblemFollow-upReasonCommentsThyroid NoduleReason CommentsThyroid ProblemFollow-upLAB/US Care Teams (unrecognized sec tion and content) Team MemberRelationshipSpecialtyStart DateEnd Date Viv Ayala [address] [place] [address] PCP - Hkcwkyt17/19/19Team MemberRelationshipSpecialtyStart DateEnd Date Viv Ayala, SALES WAREHOUSE DRIVER - PROFESSOR OF INDUSTRIAL TECHNOLOGY [address] [place] [address] PCP - Rsofhsa41/19/19Team MemberRelationshipSpecialtyStart DateEnd Date Marquise Joiner DO [address] [place] [address] PCP - GeneralFamily Medicine07/28/22 Marquise Joiner, DO [address] [place] [address] PCP - [place] [employer]09/20/23Team MemberRelationshipSpecialtyStart DateEnd Marquise Joiner, DO [address] [place] [address] PCP - GeneralFamily Medicine07/28/22 Marquise Joiner, DO [address] [place] [address] PCP - [place] [employer]09/20/23Team MemberRelationshipSpecialtyStart DateEnd Date Marquise Joiner, DO [address] [place] [address] PCP - GeneralFamily Medicine07/28/22 Marquise Joiner, DO [address] [place] [address] PCP - [place] [employer]09/20/23Team MemberRelationshipSpecialtyStart DateEnd Marquise Joiner, DO [address] [place] [address] PCP - GeneralFamily Medicine07/28/22 Marquise Joiner, DO [address] [place] [address] PCP - [place] [employer]09/20/23Team MemberRelationshipSpecialtyStart DateEnd Marquise Joiner, DO [address] [place] [address] PCP - GeneralFamily Medicine07/28/22 Marquise Joiner, DO [address] [place] [address] PCP - [place] [employer]09/20/23Team MemberRelationshipSpecialtyStart DateEnd Date Marquise Joiner, DO [address] [place] [address] PCP - GeneralFamily Medicine07/28/22 Marquise Joiner, DO [address] [place] [address] PCP - [place] [employer]09/20/23Team MemberRelationshipSpecialtyStart DateEnd Date Marquise Joiner, DO [address] [place] [address] PCP - GeneralFamily Medicine07/28/22 Marquise Joiner, DO [address] [place] [address] PCP - [place] [employer]09/20/23Team MemberRelationshipSpecialtyStart DateEnd Date Marquise Joiner, DO [address] [place] [address] PCP - GeneralFamily Medicine07/28/22 Viv Ayala, PROFESSOR OF INDUSTRIAL TECHNOLOGY [address] [place] [address] PCP - [place] Brndqhstex40/1/24Team MemberRelationshipSpecialtyStart DateEnd Date iVv Ayala, SALES WAREHOUSE DRIVER - PROFESSOR OF INDUSTRIAL TECHNOLOGY [address] [place] [address] PCP - Dpzeltv07/19/19Team MemberRelationshipSpecialtyStart DateEnd Date Marquise Joiner, DO [address] [place] [address] PCP - GeneralFamily Medicine07/28/22 Viv Ayala, PROFESSOR OF INDUSTRIAL TECHNOLOGY [address] [place] [address] PCP - [place] Jawdstrnew91/1/24Team MemberRelationshipSpecialtyStart DateEnd Date Viv Ayala, SALES WAREHOUSE DRIVER - PROFESSOR OF INDUSTRIAL TECHNOLOGY [address] [place] [address] PCP - Jhdamtd36/19/19Team MemberRelationshipSpecialtyStart DateEnd Date Marquise Joiner, DO [address] [place] [address] PCP - GeneralFamily Medicine07/28/22 Viv Ayala, PROFESSOR OF INDUSTRIAL TECHNOLOGY [address] [place] [address] PCP - [place] Uwmpgcxdsp56/1/24Team MemberRelationshipSpecialtyStart DateEnd Marquise Joiner, DO [address] [place] [address] PCP - GeneralFamily Medicine07/28/22 Viv Ayala, PROFESSOR OF INDUSTRIAL TECHNOLOGY [address] [place] [address] PCP - [place] Zyhipubyeb40/1/24Team MemberRelationshipSpecialtyStart DateEnd Date Marquise Joiner, DO [address] [place] [address] PCP - GeneralFamily Medicine07/28/22Team MemberRelationshipSpecialtyStart DateEnd Marquise Joiner, DO [address] [place] [address] PCP - GeneralFamily Medicine07/28/22Team MemberRelationshipSpecialtyStart DateEnd Date Marquise Joiner, DO [address] [place] [address] PCP - GeneralFamily Medicine07/28/22Team MemberRelationshipSpecialtyStart DateEnd Date Marquise Joiner, DO [address] [place] [address] PCP - GeneralFamily Medicine07/28/22Team MemberRelationshipSpecialtyStart DateEnd Date Marquise Joiner, DO [address] [place] [address] PCP - GeneralFamily Medicine07/28/22Team MemberRelationshipSpecialtyStart DateEnd Date Marquise Joiner, DO [address] [place] [address] PCP - GeneralFamily Medicine07/28/22 Marquise Joiner, DO [address] [place] [address] PCP - [place] [employer]7/03/2410 Viv Ayala, PROFESSOR OF INDUSTRIAL TECHNOLOGY [address] [place] [address] PCP - [place] Nfhyypvnws03/1/244Team MemberRelationshipSpecialtyStart Date End Date Viv Ayala, PROFESSOR OF INDUSTRIAL TECHNOLOGY [address] [place] [address] PCP - [place] [employer] Marquise Joiner, DO [address] [place] [address] PCP - GeneralFamily Medicine07/28/22 Marquise Joiner, DO [address] [place] [address] PCP - [place] [employer]09/19/2410 Viv Ayala, PROFESSOR OF INDUSTRIAL TECHNOLOGY [address] [place] [address] PCP - [place] Dnukditupw42/1/244Team MemberRelationshipSpecialtyStart Date End Date Viv Ayala, PROFESSOR OF INDUSTRIAL TECHNOLOGY [address] [place] [address] PCP - [place] [employer] Marquise Joiner, DO [address] [place] [address] PCP - GeneralFamily Medicine07/28/22 Marquise Joiner, DO [address] [place] [address] PCP - [place] [employer]09/19/2410 Viv Ayala, PROFESSOR OF INDUSTRIAL TECHNOLOGY [address] [place] [address] PCP - [place] Cguevdzcig14/1/244Team MemberRelationshipSpecialtyStart Date End Date Marquise Joiner DO [address] [place] [address] PCP - GeneralFamily Medicine07/28/22Team MemberRelationshipSpecialtyStart DateEnd Date Marquise Joiner, [address] [place] [address] PCP - GeneralFamily Medicine07/28/22 INFORMATION SOURCE (unrecogn ized section and content) DATE CREATED AUTHOR 03/08/2023 [facility] DATE CREATED AUTHOR AUTHOR'S ORGANIZ ATION 06/02/2024 [facility] DATE CREATED AUTHOR AUTHOR'S ORGANIZ ATION 12/29/[address] [facility] DATE CREATED AUTHOR AUTHOR'S ORGANIZ ATION 01/26/2025 [facility] EPIC FOR RECORDS PERTAINING TO PATIENTS WHO ARE OR HAVE BEEN ENROLLED IN A CHEMICAL DEPENDENCY/SUBSTANCEABUSE PROGRAM, SOME INFORMATION MAY BE OMITTED. This clinical summary was aggregated from multiple sources. Caution should be exercised in using it in the provision of clinical care. This summary normalizes information from multiple sources, and as a consequence, information in this document may materially change the coding, format and clinical context of patient data. In addition, data may be omitted in some cases. CLINICAL DECISIONS SHOULD BE BASED ON THE PRIMARY CLINICAL RECORDS. [employer] provides no warranty or guarantee of the accuracy or completeness of information in this document.
== END 2025-02-12 10:50 | disposition home or self-care (01) ==
LOC: PST 10:49
PROVIDERS: Visit Provider Otolaryngology
DX: Z01.818 Encounter for other preprocedural examination (principal); K13.79 Other lesions of oral mucosa

== ENCOUNTER 2025-03-08 09:53 | Day surgery (SDC) | payer BC, SELFPAY ==
--- NOTE | 2025-03-08 | OP_ITS ---
OPERATION DATE: SURGEON: Saritha Mcrae M.D. PREOPERATIVE DIAGNOSIS: Left buccal lesion. POSTOPERATIVE DIAGNOSIS: Left buccal lesion. PROCEDURE: Removal of left buccal lesion. ANESTHESIA: Lidocaine 1% with 1:100,000 epinephrine. COMPLICATIONS: None. FINDINGS: A 1 cm pedunculated mass of the left buccal mucosa. INDICATIONS: This 54-year-old woman presented with the above lesion which she would frequently bite PROCEDURE: Patient identified in the holding area and was taken back to the OR, where she was placed in a supine position. Lidocaine 1% with 1:100,000 epinephrine was infused around the base of the lesion, and while awaiting hemostasis and anesthesia, the cheek was prepped with Betadine and the face was draped in a sterile fashion. Then, the region was grasped and, using a sharp curved scissor, the lesion was removed. The incision was then closed with two interrupted 5-0 Vicryl sutures, and the patient was discharged home in good condition. ELVI
--- OUTSIDE RECORDS SUMMARY | 2025-03-08 09:58 | XMS_ITS | Clinical Summary ---
Author Organization [facility] Address [address], [address] [place] [address] Care Team Providers Care Camera Repairman Name Role Phone Viv Ayala APRN - BIOINFORMATICS ENGINEER Primary Care Provider [phone] [phone] Allergies No known active allergies Medications MedicationSigDispense QuantityRefillsLast FilledStart DateEnd DateStatus pantoprazole (PROTONIX) 20 MG tablet Take 1 tablet by mouth dailyActive Multiple Vitamins-Minerals (MULTI FOR HER 50+ PO) as directedActive Melvin-3 Fatty Acids (FISH OIL) 1000 MG CAPS [...] Problems ProblemNoted DateDiagnosed DateUlcer of esophagus with zcvebclg07/20/2022Hiatal bsqols0412/09/2021Family history of colon plwdgo7812/09/2021 Resolved Problems ProblemNoted DateDiagnosed DateResolved DateColon cancer /31/2020 11/19/2019 Encounters DateTypeDepartmentCare ZdfiBplnclxzpse43/24/2025Telephone [facility] Part of [facility] [address] [place] [id number] Sis Jacome, SHOBHA - NIESHA certified mammogram rvjsiv2912/26/2024 5:42 PM EDT - 12/28/2024 11:59 PM EDT Hospital Encounter [facility] Ultrasound [address] [place] [address] Thyroid nodule Discharge Disposition: Home or Self Care12/21/2024Transcribe Orders Arre[facility] Pre Access [address] [place] [id number] Saritha Mcrae Jr., MD Thyroid nodule (Primary [...] (1 standard drink = 0.6 oz pure alcohol)[facility] UtilitiesAnswerDate RecordedIn the past 12 months has the electric, gas, oil, or water company threatened to shut off services in your home?No05/18/2024Overall Financial Resource Strain (CARDIA)AnswerDate Recorded How hard is it for you to pay for the very basics like food, housing, medical care, and heating?Not hard at all05/12/2023HQ-2AnswerDate RecordedPHQ-9 Total Wedyn167Hunger Vital SignAnswerDate RecordedWithin the past 12 months, [...] steady place to sleep or slept in vacherieelt (including now)?No05/12/2023Housing Stability Vital SignAnswerDate RecordedIn the last 12 months, was there a time when you were not able to pay the mortgage or rent on time?No05/18/2024In the past 12 months, how many times have you moved where you were living? At any time in the past 12 months, were you homeless or living in a correction (including now)?No05/18/2024Food InsecurityAnswerDate RecordedWithin the past 12 months, you worried that your food would run out before you got the money to buy more.Within the past 12 months, the food you bought just didn't last and you didn't have money to get more.CommentsNoSex and Gender InformationValueDate RecordedSex Assigned at EyyqxSbonqv22/23/2025 10:41 AM ESTLegal CpoJrrmrk74/10/2013 1:18 PM ESTGender IdentityNot on fileSexual OrientationNot on file Last Filed Vital Signs Vital SignReadingTime TakenCommentsBlood Hsotqckm458/8205/18/2024 3:16 PM EST Ivwif3065 10:15 AM BKCSznaqknvmhc77.3 ??C (97.4 ??F)12/09/2021 9:52 AM EDTRespiratory Pepq027412/09/2021 10:15 AM EDTOxygen Btbbdjhaze88%12/09/2021 10:15 AM EDTInhaled Oxygen Concentration--Sgulhr597.9 kg (229 lb)05/18/2024 3:16 PM MKPVozcvp392.7 cm (5' 8 )05/18/2024 3:16 PM ESTBody Mass Index34.8205/18/2024 3:16 PM EST Plan of Treatment DateTypeDepartmentCare Team (Latest Contact Info)Xjpwtbdechp32/04/2026 3:15 PM ESTOffice Visit [facility] Part of [address] [place] [address] Sis Jacome, REHABILITATION TEACHER - CN[address] [place] [address] Return in about 1 year (around 05/18/2025) for yearly.Health MaintenanceDue Date Last DoneCommentsHepatitis C envtig5406/08/1987Hepatitis B vaccine (1 of 3 - + 3-dose series)1988HPV (without or with Pap)06/08/1999FIT/FOBT: Average risk2014Fecal-DNA (Cologuard): Average risk2014Sigmoidoscopy/CT rdukacdvwhwv54/19/2015Pneumococcal 50+ years Vaccine (1 of 1 - PCV)06/08/2019A1C test (Diabetic or Prediabetic)LipidsFlu vaccine (#1)/, 01/12/2023, 01/12/2022, Additional history existsCOVID-19 Vaccine (2024- season)504/, 06/18/2020 Cervical cancer lydzan9205/07/2025Pap smear6005/07/2022, 04/18/2019, 01/18/2017Depression Gzjntprvto81/27/12966905/18/2024, 05/18/2024reast cancer jliexd46, 05/05/2023, 07/31/2021, Additional history exists Diqqqfounoj99, 2Colorectal Cancer Qjupof6612/09/2026 DTaP/Tdap/Td vaccine (3 - Td or Tdap), 1988HIV screen Pgncpnhim37/30/2012Shingles eqepopzVqabexdwf65/20/2021, 09/02/2020epression IrufktAtiivcrcfdsw71/27/2025, 05/18/2024Hepatitis A vaccineAged OutNo longer eligible based [...] EDT Thyroid nodule JOAO WYATT DIGITAL SCREEN UXKRMTTOFHnfvdxr72/27/2025 4:53 PM EST Screening mammogram, encounter for CONTAINER PACKER OPERATOR GNSCNIMGRynxosd08/16/2023 8:25 AM EST COLONOSCOPY LGEOGWSCBRuizfiy58/20/2022 7:48 AM EDT HEMOGLOBIN S2KCqkpjde61/19/2019 9:08 AM EDT LIPID ZEMSVPzksila19/19/2019 9:07 AM EDT from Last 3 Months [...] StatusDIOGENES Bean Jr. US ORDERABLESFinal Result * [facility] WYATT DIGITAL SCREEN BILATERAL (05/18/2024 4:53 [...] to the patient regarding the results. The [employer] recommends annual mammograms for women 40 years and older. Performing Facility: [place] [id number] Narrative 05/19/2024 8:15 AM EST EXAMINATION: SCREENING [...] breast. Authorizing ProviderResult TypeResult StatusSusan Connie Jacome REHABILITATION TEACHER - [facility] MAMMOGRAPHY ORDERABLESFinal Result * CONTAINER PACKER OPERATOR Cytology (05/07/2022 8:25 AM EST)ComponentValueRef RangeTest Method Analysis TimePerformed AtPathologist SignatureCytology ReportINTERPRETATION Cervical material, (ThinPrep vial, Imaging-assisted review): Specimen Adequacy: ? Satisfactory for evaluation. ? - Endocervical/transformation zone component present. Descriptive Diagnosis: ? Negative for intraepithelial lesion or malignancy. ?? Chute Operator: ?? EY SS4 ARSH Tam(ASCP) Electronically Signed Out ss4/05/20/2022 Source: A: Cervical material, (ThinPrep vial, Imaging-assisted review) Clinical History Z12.4 Encounter for screening for malignant neoplasm of cervix High Risk HPV DNA testing is requested if the diagnosis is ASC-US LMP: ??04/22/2022 GYNECOLOGIC CYTOLOGY REPORT Patient Name: RODRIGUE MAC [facility] Rec: [id number] Path Number: [id number] [facility] ??[facility]ORATOR[facility] CONSULTING PATHOLOGISTS [facility] ANATOMIC PATHOLOGY [address] [place] [address]. ??[place] [phone] [facility] LABORATORIESSpecimen (Source)Anatomical Location / LateralityCollection Method / VolumeCollection TimeReceived TimeCERVICAL QFPVWWQC15/16/2023 8:25 AM EST05/08/2022 8:25 AM EST Narrative Authorizing ProviderResult TypeResult StatusSusonny Jacome REHABILITATION TEACHER - CNM PATHOLOGY/CYTOLOGY ORDERABLESFinal ResultPerforming OrganizationAddress City/State/ZIP CodePhone Number [facility] [address] [place] [address], [facility] [phone] [phone] * Colonoscopy (12/09/2021 7:48 AM EDT)Specimen (Source)Anatomical Location / LateralityCollection Method / VolumeCollection TimeReceived Time Narrative Epic, User - 12/09/2021 7:48 AM EDT No dictation Authorizing ProviderResult TypeResult StatusAnnamaria Mixon MDENDOSCOPY ORDERABLESFinal Result * Hemoglobin A1C (01/07/2019 9:08 AM EDT)ComponentValueRef RangeTest Method Analysis TimePerformed AtPathologist SignatureHemoglobin A1C5.94.8 - 5.9 % 01/07/2019 9:08 AM [facility] LABEstimated Avg Shrnmfh311 mg/dL01/07/2019 9:08 AM [facility] LABComment: The ADA and AACC recommend providing the estimated average glucose result to permit better patient understanding of their HBA1c result. Specimen (Source)Anatomical Location / LateralityCollection Method / Volume Collection TimeReceived Time01/07/2019 9:08 AM EDT1 9:09 AM EDT Narrative Authorizing ProviderResult TypeResult StatusViv Ayala REHABILITATION TEACHER - NPCHEMISTRY ORDERABLESFinal ResultPerforming OrganizationAddressCity/State/ZIP CodePhone Number [facility] [address] [phone] * Lipid Panel (01/07/2019 9:07 AM EDT)ComponentValueRef RangeTest MethodAnalysis TimePerformed AtPathologist ZitzzkmkbLozwynrqpmm342<200 mg/dL01/07/2019 9:07 AM [facility]Comment: Cholesterol Guidelines: <200 Desirable 200-240 ??Borderline >240 Undesirable HDL47>40 mg/dL01/07/2019 9:07 AM [facility]Comment: HDL Guidelines: <40 Undesirable 40-59 ?Borderline >59 Desirable LDL Whebntzanho6890 - 130 mg/dL01/07/2019 9:07 AM [facility]Comment: LDL Guidelines: <100 Desirable 100-129 ?? Near to/above Desirable 130-159 ?? Borderline >159 Undesirable Direct (measured) LDL and calculated LDL are not interchangeable tests. Chol/HDL Ratio4.1< 9:07 AM [facility] Comment:Bqbyvofsegnxp57<150 mg/dL01/07/2019 9:07 AM [facility]: Triglyceride Guidelines: <150 Desirable 150-199 ??Borderline 200-499 ??High >499 Very high Based on AHA Guidelines for fasting triglyceride, December 2011. VLDLNOT REPORTED1 - 30 mg/dL01/07/2019 9:07 AM [facility] LABSpecimen (Source)Anatomical Location / LateralityCollection Method / Volume Collection TimeReceived Time01/07/2019 9:07 AM EDT1 9:08 AM EDT Narrative Authorizing ProviderResult TypeResult StatusEliudjane Ayala REHABILITATION TEACHER - NPCHEMISTRY ORDERABLESFinal ResultPerforming OrganizationAddressCity/State/ZIP CodePhone Number [facility] [address] [place] [id number], [facility] [phone] from Last 3 Months or Most Recently Relevant to Health Maintenance Insurance Care Teams Team MemberRelationshipSpecialtyStart DateEnd Date Viv Ayala, SHOBHA - BIOINFORMATICS ENGINEER [address] [place] [address] PCP - Jlbflna58/19/19
--- OUTSIDE RECORDS SUMMARY | 2025-03-08 09:58 | XMS_ITS | Encounter Summary ---
Author Organization [facility] Address [address] [place] [address] Care Team Providers Care Forest Pathology Teacher Name Role Phone MariselMarquise moreno Primary Care Provider [phone]- [phone] Reason for Visit * ReasonCommentsMed Refill Encounter Details DateTypeDepartmentCare Team (Latest Contact Info)Ghlvgpzckjl52/09/2025Refill [facility] [address] [place] [phone] Viv Ayala, TARYN [address] [place] [address] Myalgia, other site Social History Tobacco UseTypesPacks/DayYears UsedDateSmoking Tobacco: NeverSmokeless Tobacco: NeverAlcohol UseStandard Drinks/WeekCommentsYes1 (1 standard drink = 0.6 oz pure alcohol)PHQ-2AnswerDate RecordedPatient Health Questionnaire-2 Enodi476 Housing Stability Vital SignAnswerDate RecordedIn the last [...] times a week01/01/2025How often do you attend protestant or buddhist services?Patient uykilmtc23/13/2025Do you belong to any clubs or organizations such as protestant groups, unions, fraternal or athletic groups, or school groups?No01/01/2025ttends Club or Organization MeetingsNot on file 01/01/2025re you , , , , never , or living with a partner?Svmzuay0601/01/2025UDIT-CAnswerDate RecordedQ1: How often do you have a [...] housing, medical care, and heating?Not hard at all01/01/2025[facility] [place] [facility] Occup[facility] - Occupational Stress QuestionnaireAnswerDate RecordedDo you feel stress - tense, restless, nervous, or anxious, or unable to sleep at night because yourmind is troubled all the time - these days?Only a mlhpkh8301/01/2025Exercise Vital Sign AnswerDate RecordedOn average, how many days per week do you engage in moderate to strenuous exercise (like a brisk walk)?Patient /13/2025On average, how many minutes do you engage [...] were you homeless or living in a fdc (including now)?No 01/01/2025B1300 Health LiteracyAnswerDate RecordedHow often do you need to have someone help you when you read instructions, pamphlets, or other written material from your doctor or pharmacy?Never01/01/2025CommentsNoSex and Gender InformationValueDate RecordedSex Assigned at BirthNot on fileLegal Sex Qparrh6806/03/2022 8:24 PM EDTGender IdentityNot on fileSexual OrientationNot on filedocumented as of this encounter Plan of Treatment DateTypeDepartmentCare Team (Latest Contact Info)Ruhmvsntmoa19/27/2026 1:00 PM EDTOffice Visit [facility] [place] [facility] [address] [place] [address] Saritha Mcrae MD [address] [place] [address] 12/24/2025 3:30 PM EDTOffice Visit [facility] [address] [place] [phone] Viv Ayala NP [address] [place], [place] [phone] 01/23/2026 2:00 PM ESTOffice Visit [facility] [place] [facility] [address] [place] [address] Kevin Stovall MD [address] [place] [address] documented as of this encounter Visit Diagnoses Diagnosis Myalgia, other site documented in this encounter Care Teams Team MemberRelationshipSpecialtyStart DateEnd Date Marquise Joiner DO [address] [place] [address] PCP - GeneralFamily Medicine07/28/22documented as of this encounter
--- OUTSIDE RECORDS SUMMARY | 2025-03-08 09:58 | XMS_ITS | Clinical Summary ---
Author Organization [facility] Address [address] [place] [address] Care Team Providers Care Patient Accounts Coordinator Name Role Phone Marquise Joiner Primary Care Provider [phone] Allergies No known active allergies Medications MedicationSigDispense [...] celecoxib (CeleBREX) 200 MG capsule Indications:Myalgia, other siteTAKE 1 CAPSULE BY MOUTH 2 TIMES A DAY IN THE MORNING AND BEFORE BEDTIME 60 capsule 5Active celecoxib (CeleBREX) 200 MG capsule Indications:Myalgia, other siteTake 1 capsule (200 mg) by mouth in the morning and 1 capsule (200 mg) before bedtime. 60 capsule Discontinued Active Problems ProblemNoted DateDiagnosed Date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11/30/2023Thyroiditis, glgnjwbakcu72/10/2024 Thyroid bibocj5802/15/20233340Tmbggekftgiiadk11/27/2023Family history of colon cancer 12/09/2021Hiatal pmstvg8412/09/2021 Resolved Problems ProblemNoted DateDiagnosed DateResolved DateUlcer of esophagus with bleeding Encounters DateTypeDepartmentCare UqiqRfosnsyvuka81/09/2025Refill [facility] [address] [place] [phone] Viv Ayala NP Myalgia, other site02/19/2025Telephone [facility] [address] [facility] [address] [place] [phone] Jessy Crain MA 01/24/2025 2:30 PM ESTOffice Visit [facility] [place] [address] Kevin Stovall MD Thyroiditis (Primary Dx); Thyroid qvskuq2101/24/2025 11:20 AM ESTOffice Visit [facility] [address] [facility] [address] [place] [address] Saritha Mcrae MD Thyroid nodule (Primary Dx); Mass of oral gshgjh2801/24/2025amboo flowsheet [facility] [address] [facility] [address] [place] [address] Saritha Mcrae MD 01/24/20253305Izyvgw42/13/2025 3:00 PM EDTOffice Visit [facility] [place] [address] [place] [phone] Viv Ayala NP Wellness examination (Primary Dx); Hiatal hernia; Thyroid nodule; BMI 35.0-35.9,adult; 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; Thyroiditis, unspecified; Family history of colon cancer; Hyperthyroidism; Immunization due; Myalgia, other site; Chptuqganmh28/13/2025bstract [facility] [address] [place] [address] Viv Ayala NP 01/01/2025amboo flowsheet [facility] [address] [place] [address] Viv Aayla NP 01/01/20256132Imituo66/10/2025Results Follow-Up [facility] [address] [address] Viv Ayala, CLIENT DIRECTOR CBC, Comprehensive metabolic panel, Lipid panel, Additional followed-up results: Orders Only [facility] [address] [place] [address] Kevin Stovall MD 12/27/2024Orders Only [facility] [address] [address] Viv Ayala, CLIENT DIRECTOR Screening for deficiency anemia (Primary Dx); Diabetes mellitus screening; Screening, lipid; Dysuria; Encounter for vitamin deficiency screening; Wellness /08/2025linisync Result Encounter [facility] External Department Unsolicited Provider, Generic External Data from Last 3 Months Immunizations ImmunizationAdministration DatesNext DueInfluenza, injectable, quadrivalent, preservative free01/12/2023,01/12/2022,01/08/2021,01/05/2020Influenza, seasonal, injectable, preservative free01/01/2025,01/12/2024Tdap1,1988 Zoster, Ijdzeasvolt03/20/2021,09/02/2020 Family History Medical HistoryRelationNameCommentsSeizuresDaughteryoungestMacular degeneration FatherStomach cancerMaternal GrandfatherCancerMaternal GrandmotherEvelynColon cancerMaternal GrandmotherEvelynIron deficiencyMotherCancerPaternal Grandfather CancerPaternal Grandmothermanic depressionPaternal Grandmotherlithium use MelanomaNeg UyFizgmrdaQtyqIlmddzTrjlqjzjObzsbitt5WqrqjhChbqfZghzfoya Grandfather DeceasedMaternal GrandmotherEvelynDeceasedMotherAlivePaternal Grandfather DeceasedPaternal GrandmotherDeceasedSon1 Social History Tobacco UseTypesPacks/DayYears UsedDateSmoking Tobacco: NeverSmokeless Tobacco: Never Tobacco Cessation:Counseling Given: No Alcohol UseStandard Drinks/WeekCommentsYes1 (1 standard drink = 0.6 oz pure alcohol)PHQ-2AnswerDate RecordedPatient Health Questionnaire-2 Xlwmd983 Housing Stability Vital SignAnswerDate RecordedIn the last 12 months, was there a time when you were not able to pay the mortgage or rent on time?No01/11/2023In the last 12 months, how many places have you lived?In the last 12 months, was there a time when you did not have a steady place to sleep or slept in [facility] (including now)?No01/11/2023Housing Stability Vital SignAnswerDate RecordedIn the [...] times a week01/01/2025How often do you attend presybeterian or mandaen services?Patient xkxrtvyy20/13/2025Do you belong to any clubs or organizations such as presybeterian groups, unions, fraternal or athletic groups, or school groups?No01/01/2025ttends Club or Organization MeetingsNot on file 01/01/2025re you , , , , never , or living with a partner?Ezqhwfl4301/01/2025UDIT-CAnswerDate RecordedQ1: How often do you have a [...] housing, medical care, and heating?Not hard at all01/01/2025[place] [place] [employer] - Occupational Stress QuestionnaireAnswerDate RecordedDo you feel stress - tense, restless, nervous, or anxious, or unable to sleep at night because yourmind is troubled all the time - these days?Only a uultxl2601/01/2025Exercise Vital Sign AnswerDate RecordedOn average, how many days per week do you engage in moderate to strenuous exercise (like a brisk walk)?Patient esdzzktb73/13/2025On average, how many minutes do you engage [...] from medical appointments or from getting medications?No 10/13/2025In the past 12 months, has lack of [...] were you homeless or living in a retirement (including now)?No 01/01/2025B1300 Health LiteracyAnswerDate RecordedHow often do you need to have someone help you when you read instructions, pamphlets, or other written material from your doctor or pharmacy?Never01/01/2025CommentsNoSex and Gender InformationValueDate RecordedSex Assigned at BirthNot on fileLegal Sex Zlmbkg0206/03/2022 8:24 PM EDTGender IdentityNot on fileSexual OrientationNot on file Last Filed Vital Signs Vital SignReadingTime TakenCommentsBlood Cgomcrih123/80103/26/2024 11:17 AM EST Cvjrx182901/24/2025 2:29 PM EVIKfltokiuykp59.6 ??C (97.9 ??F)01/01/2025 3:17 PM EDTRespiratory Qilh996003/26/2024 2:29 PM ESTOxygen Uxwnhywbmi87%01/24/2025 2:29 PM ESTInhaled Oxygen Concentration--Zyocak537 kg (233 lb)01/24/2025 2:29 PM EST Cftkyy357 cm (5' 8.5 )01/24/2025 2:29 PM ESTBody Mass Index34.9101/24/2025 2:29 PM EST Plan of Treatment DateTypeDepartmentCare Team (Latest Contact Info)Kijkjlhifwc29/27/2026 1:00 PM EDTOffice Visit [facility] [place] [facility] [address] [facility] [address] [place] [address] Saritha Mcrae MD [address] [facility] [address] [place] [address] 12/24/2025 3:30 PM EDTOffice Visit [facility] [address] [place] [address] Viv Ayala NP [address] [place], [place] [address] 01/23/2026 2:00 PM ESTOffice Visit [facility] [address] [place] [address] Kevin Stovall MD [address] [place] [address] Health MaintenanceDue DateLast DoneCommentsCT Igxdqtfvdpwq56/19/1970FIT-DNA 1969FIT1969FOBT1969 4465Hssapxssuluxt06/19/1970HPV/Swgnmc4906/08/1999 COVID-19 Vaccine ( season)504/, 1Cervical Cancer Ufjxamzgw89/16/2026Pap Smear602/, 05/07/2022, 04/18/2019 Xexuvnsgq75/27/219396/, 05/18/2024, 05/05/2023, Additional history exists Tpesklnnufm12/20/203209/, 12/09/2021, 12/09/2021, Additional history existsColorectal Cancer Bppnqatoh33/20/2032Influenza YqhcgzuFdnkwszkg11/13/2025, 01/12/2024, 01/12/2023, Additional history existsPneumococcal Vaccine: Pediatrics (0 to 5 Years) and At-Risk Patients (6 to 64 Years)Aged OutNo longer eligible based on patient's age to complete this topic Procedures Procedure NamePriorityDate/TimeAssociated DiagnosisCommentsT4, FREERoutine 12/28/2024 8:08 AM EDTT3, TXEMLnynrjd16/09/2025 8:08 AM CAEAXSTwvuyxe51/09/2025 8:08 AM EDTHEMOGLOBIN X8RYkrkioy60/08/2025 7:09 AM EDT Diabetes mellitus screening VITAMIN D 25 HYDROXY XNFJUCvxllyn78/08/2025 7:09 AM EDT Encounter for vitamin deficiency screening URINALYSIS, COMPLETE W/REFLEX TO RTBUDQEZytlxro88/08/2025 7:09 AM EDT Dysuria Wellness examination LIPID TTQKZXlwpabh42/08/2025 7:09 AM EDT Screening, lipid Wellness examination COMPREHENSIVE METABOLIC UTKCGNjfgetv14/08/2025 7:09 AM EDT Diabetes mellitus screening Wellness examination WQWOhtadkt29/08/2025 7:09 AM EDT Screening for deficiency anemia Wellness examination CULTURE, URINE, XSURSUGVkgmkis63/08/2025 7:09 AM EDT REFLEXIVE URINE BWGLDDIAtfthaw87/08/2025 7:09 AM EDT US EGROAZI8812/27/2024 6:35 AM EDT QOYACVJACGJBsohthq11/20/2022 12:00 PM EDT BI MAMMOGRAM SCREENING FBJKRSQVZGkmqhxd61/12/2022 12:00 PM EDT from Last 3 Months or Most Recently Relevant to Health Maintenance Results * T3, free (12/28/2024 8:08 AM EDT)Specimen (Source)Anatomical Location / LateralityCollection Method / VolumeCollection TimeReceived TimeBloodVenous blood specimen / Unknown Narrative Authorizing ProviderResult TypeResult StatusKevin BESS BLOOD ORDERABLESFinal Result * TSH (12/28/2024 8:08 AM EDT)Specimen (Source)Anatomical Location / Laterality Collection Method / VolumeCollection TimeReceived TimeBloodVenous blood specimen / Unknown Narrative Authorizing ProviderResult TypeResult StatusKevin BESS BLOOD ORDERABLESFinal Result * T4, free (12/28/2024 8:08 AM EDT)Specimen (Source)Anatomical Location / LateralityCollection Method / VolumeCollection TimeReceived TimeBloodVenous blood specimen / Unknown Narrative Authorizing ProviderResult TypeResult StatusKevin BESS BLOOD ORDERABLESFinal Result * REFLEXIVE URINE CULTURE (12/27/2024 7:09 AM EDT)ComponentValueRef RangeTest MethodAnalysis TimePerformed AtPathologist SignatureREFLEXIVE URINE CULTURE QUESTComment:CULTURE INDICATED - RESULTS TO FOLLOWSpecimen (Source)Anatomical Location / LateralityCollection Method / VolumeCollection TimeReceived Time 12/27/2024 7:09 AM EDT1 7:10 AM EDT Narrative [facility] - 12/29/2024 9:01 AM EDT FASTING:YES FASTING: YES Resulting Agency Comment Performing Organization Information ?Site ID: QPT ?Name: [employer] [facility] ?Address: [address] [place] [phone] ?Director: Neal Epperson MD Authorizing ProviderResult TypeResult StatusViv NUNEZ MICROBIOLOGY - GENERAL ORDERABLESFinal ResultPerforming OrganizationAddressCity/State/ZIP Code Phone Number [facility] * (ABNORMAL) URINALYSIS, COMPLETE W/REFLEX TO CULTURE (12/27/2024 7:09 AM EDT) ComponentValueRef RangeTest MethodAnalysis TimePerformed AtPathologist SignatureCOLORYELLOWYELLOWQUESTAPPEARANCECLEARCLEARQUESTSPECIFIC GRAVITY1.021 1.001 - 1.935GYORDPJ8.55.0 - 8.0QUESTGLUCOSENEGATIVENEGATIVEQUESTBILIRUBIN NEGATIVENEGATIVEQUESTKETONESNEGATIVENEGATIVEQUESTOCCULT BLOOD2+(A)NEGATIVE QUESTPROTEINTRACE(A)NEGATIVEQUESTNITRITENEGATIVENEGATIVEQUESTLEUKOCYTE ESTERASETRACE(A)NEGATIVEQUESTWBC0-5< OR = 5 /HPFQUESTRBCNONE SEEN< OR = 2 /HPF QUESTSQUAMOUS EPITHELIAL SNDCD88-75(A)< OR = 5 /HPFQUESTBACTERIAFEW(A)NONE SEEN /HPFQUESTHYALINE CASTNONE [...] Performing Organization Information ?Site ID: QPT ?Name: [facility] ?Address: [address] [place] [address], [address] [place] [phone] ?Director: Neal Epperson MD Authorizing ProviderResult TypeResult [...] D, (D2,D3), LC/MS/MS is recommended: order code [id number] (patients >2yrs). See Note 1 Note 1 For additional information, please refer to http://education.[employer]/faq/ZQA967 (This link is being provided for informational/ educational purposes only.) Specimen (Source)Anatomical Location / LateralityCollection Method / Volume Collection TimeReceived TimeBloodVenous blood specimen / Yzfgako2912/27/2024 7:09 AM EDT1 7:10 AM EDT Narrative [facility] - 12/29/2024 9:01 AM EDT FASTING:YES FASTING: YES Resulting Agency Comment Performing Organization Information ?Site ID: QPT ?Name: [facility] ?Address: [address] [place] [address], [address] [place], [place] [phone] ?Director: Neal Epperson MD Authorizing ProviderResult TypeResult StatusGerri L Jamie NPLAB BLOOD ORDERABLES Final ResultPerforming OrganizationAddressCity/State/ZIP CodePhone Number [facility] * CBC (12/27/2024 7:09 AM EDT)ComponentValueRef RangeTest MethodAnalysis Time Performed AtPathologist SignatureWHITE BLOOD CELL COUNT5.03.8 - 10.8 Thousand/uLQUESTRED BLOOD CELL COUNT4.673.80 - 5.10 Million/uLQUESTHEMOGLOBIN 13.911.7 - 15.5 g/oZTAMLXIMEWIRGQPF09.135.0 - 45.0 %ISTBMELQ50.380.0 - 100.0 uDHUFTXMFZ69.827.0 - 33.0 azVKEUGTTYZ37.332.0 - 36.0 g/dLQUESTComment: For adults, a slight decrease in the calculated MCHC value (in the range of 30 to 32 g/dL) is most likely not clinically significant; however, it should be interpreted with caution in correlation with other red cell parameters and the patient's clinical condition. RDW13.511.0 - 15.0 %QUESTPLATELET MJPLE897354 - 400 Thousand/uLQUESTMPV9.87.5 - 12.5 fLQUESTSpecimen (Source)Anatomical Location / LateralityCollection Method / VolumeCollection TimeReceived TimeBloodVenous blood specimen / Ermmclt4112/27/2024 7:09 AM EDT1 7:10 AM EDT Narrative [facility] - 12/29/2024 9:01 AM EDT FASTING:YES FASTING: YES Resulting Agency Comment Performing Organization Information ?Site ID: QPT ?Name: [facility] ?Address: [address] [place] [address], [address] [place] [address] ?Director: Neal Epperson MD Authorizing ProviderResult TypeResult StatusViv Ayala NPLAB BLOOD ORDERABLES Final ResultPerforming OrganizationAddressCity/State/ZIP CodePhone Number [facility] * Urine culture (12/27/2024 7:09 AM EDT)ComponentValueRef RangeTest Method Analysis TimePerformed AtPathologist SignatureMICRO [id number] SPECIMEN QUALITYAdequateQUESTSOURCE: (QUEST)URINEQUESTSTATUSFINALQUESTRESULT SEE NOTEQUESTComment: No Growth Specimen (Source)Anatomical Location / LateralityCollection Method / Volume Collection TimeReceived Time12/27/2024 7:09 AM EDT1 7:10 AM EDT Narrative [facility] - 12/29/2024 9:01 AM EDT FASTING:YES FASTING: YES Resulting Agency Comment Performing Organization Information ?Site ID: QPT ?Name: [facility] ?Address: [address] [place] [phone] ?Director: Neal Epperson MD Authorizing ProviderResult TypeResult [...] Volume Collection TimeReceived TimeBloodVenous blood specimen / Vvhlmkp5312/27/2024 7:09 AM EDT1 7:10 AM EDT Narrative [facility] - 12/29/2024 9:01 AM EDT FASTING:YES FASTING: YES Resulting Agency Comment Performing Organization Information ?Site ID: QPT ?Name: [facility] ?Address: [address], [address] [place] [phone] ?Director: Neal Epperson MD Authorizing ProviderResult TypeResult StatusGerri Neil Ayala NPLAB BLOOD ORDERABLES Final ResultPerforming OrganizationAddressCity/State/ZIP CodePhone Number [facility] * (ABNORMAL) Lipid panel (12/27/2024 7:09 AM EDT)ComponentValueRef RangeTest MethodAnalysis TimePerformed AtPathologist SignatureCHOLESTEROL, DGSSR026(H) <200 mg/dLQUESTHDL JZCMSSNADSR41> OR = 50 mg/jLFQHSERTGGXTGKVGPSM96<150 mg/dL QUESTLDL RBAMCXRTWSN916(H)mg/dL (calc)QUESTComment: Reference range: <100 Desirable range <100 mg/dL for primary prevention; <70 mg/dL for patients with CHD or diabetic patients with > or = 2 CHD risk factors. LDL-C is now calculated using the Mehul-Zulma calculation, which is a validated novel method providing better accuracy than the Friedewald equation in the estimation of LDL-C. Mehul SS et al. LIV. 2013;310(19): 9002-7502 (http://education.[employer]il IQ.com/faq/ZTS835) CHOL/HDLC RATIO3.5<5.0 (calc)QUESTNON HDL HVJQPVCTAGR149(H)<130 mg/dL (calc) QUESTComment: For patients with diabetes plus 1 major ASCVD risk factor, treating to a non-HDL-C goal of <100 mg/dL (LDL-C of <70 mg/dL) is considered a therapeutic option. Specimen (Source)Anatomical Location / LateralityCollection Method / Volume Collection TimeReceived TimeBloodVenous blood specimen / Rilehym8412/27/2024 7:09 AM EDT1 7:10 AM EDT Narrative [facility] - 12/29/2024 9:01 AM EDT FASTING:YES FASTING: YES Resulting Agency Comment Performing Organization Information ?Site ID: QPT ?Name: [facility] ?Address: [address] [place] [address], [address] [place] [address] ?Director: Neal Epperson MD Authorizing ProviderResult TypeResult StatusGerri Neil Ayala NPLAB BLOOD ORDERABLES Final ResultPerforming OrganizationAddressCity/State/ZIP CodePhone Number [facility] * (ABNORMAL) Comprehensive metabolic panel (12/27/2024 7:09 AM EDT)Component ValueRef RangeTest MethodAnalysis TimePerformed AtPathologist SignatureGlucose 111(H)65 - 99 mg/dLQUESTComment: ? Fasting reference interval For someone without known diabetes, a glucose value between 100 and 125 mg/dL is consistent with prediabetes and should be confirmed with a follow-up test. PIC666 - 25 mg/dLQUESTCreatinine0.830.50 - 1.03 mg/bCGFSNFFUAI61> OR = 60 mL/min/1.08w5CPEYEFXK/CREATININE RATIOSEE NOTE: (calc)QUESTComment: ?? Not Reported: BUN and Creatinine are within ?? reference range. ? Ketsom832070 - 146 mmol/LQUESTPotassium, Bld4.33.5 - 5.3 mmol/DOSKDQBlblwpsd334 98 - 110 mmol/LQUESTCarbon Zerfknq0905 - 32 mmol/LQUESTCalcium8.98.6 - 10.4 mg/dLQUESTPROTEIN, TOTAL6.56.1 - 8.1 g/dLQUESTALBUMIN4.23.6 - 5.1 g/dLQUEST GLOBULIN2.31.9 - 3.7 g/dL (calc)QUESTALBUMIN/GLOBULIN RATIO1.81.0 - 2.5 (calc) QUESTBILIRUBIN, TOTAL0.60.2 - 1.2 mg/dLQUESTALKALINE MIMLCVCRPGW0654 - 153 U/L UMIMOUKB2731 - 35 U/IPIKAJTMF685 - 29 U/LQUESTSpecimen (Source)Anatomical Location / LateralityCollection Method / VolumeCollection TimeReceived TimeBlood Venous blood specimen / Dysdvtv6512/27/2024 7:09 AM EDT1 7:10 AM EDT Narrative [facility] - 12/29/2024 9:01 AM EDT FASTING:YES FASTING: YES Resulting Agency Comment Performing Organization Information ?Site ID: QPT ?Name: [facility] ?Address: [address] [place] [address], [address] [place] [address] ?Director: Neal Epperson MD Authorizing ProviderResult TypeResult StatusGerri Neil Ayala NPLAB BLOOD ORDERABLES Final ResultPerforming OrganizationAddressCity/State/ZIP [...] 12/27/24 Final result Procedure Note Radiology, Radiologist, - 12/27/2024 EXAM: US THYROID 12/26/2024 [...] 12/09/2021 12:00 PM EDT PERFORMED AT [facility] LOCATION:[id number] Procedure Note CONVERSION, GENERIC - 08/05/2022 PERFORMED AT [facility] LOCATION:[id number] Authorizing ProviderResult TypeResult StatusGerri L Jamie NPENDOSCOPY PROCEDURE ORDERABLESFinal Result * Bilateral screening mammogram (07/31/2021 12:00 PM EDT)Anatomical Region LateralityModalityBreastBilateralMammographySpecimen (Source)Anatomical Location / LateralityCollection Method / VolumeCollection TimeReceived Time Narrative 07/31/2021 12:00 PM EDT PERFORMED AT [facility] LOCATION:[id number] Procedure Note CONVERSION, GENERIC - 09/25/2022 PERFORMED AT [facility] LOCATION:[id number] Authorizing ProviderResult TypeResult StatusGerri Neil Ayala NPIMG BI PROCEDURES Final Result from Last 3 Months or Most Recently Relevant to Health Maintenance Insurance Care Teams Team MemberRelationshipSpecialtyStart DateEnd Date Marquise Joiner DO [address] [place] [phone] PCP - GeneralFamily Medicine07/28/22
[2025-03-08 10:11] VITALS: BP 141/80; PULSE 69; TEMP 36.6; O2SAT 95
[2025-03-08] MEDS: LIDOCAINE HCL 1%-EPINEPHRINE 1:100,000 20 ML MDV 5 ML INJ (11:24)
[2025-03-08 11:32] VITALS: BP 141/95; PULSE 65; O2SAT 95
== END 2025-03-08 11:43 | disposition home or self-care (01) ==
LOC: SURGOUT 09:54
PROVIDERS: Visit Provider Otolaryngology
PROC: (CPT 40812; principal; 2025-03-08 11:00)
DX: K13.79 Other lesions of oral mucosa (principal)
CPT/HCPCS: 40812